=== PATIENT | male | born 1945 ===

== ENCOUNTER 2019-01-09 20:47 | Inpatient (IN) | payer MEDICARE ==
--- NOTE | 2019-01-09 21:16 | ED PDOC ---
Arrival/HPI - General Chief Complaint: Abnormal Labs Time Seen by Provider: 01/09/19 20:48 Historian: Patient - History of Present Illness Narrative History of Present Illness (Text): 01/09/19 21:16 73 year old male, with a history of anemia and blood transfusions, presents to the emergency department with generalized weakness today. Patient states symptoms began today. Patient states he had blood work that showed very low h emoglobin. Patient informs he has needed 2 blood transfusions in the past for his anemia. Patient informs of some weight loss as well. Patient also informs of areas of tenderness to the right leg, above and below the knee. Patient denies any bleeding, hematochezia, fevers, chills, chest pain, shortness of breath, cough, diaphoresis, abdominal pain, nausea, vomiting, diarrhea, back pain, neck pain, or any other complaint. Time/Duration: Prior to Arrival, 24 hours Symptom Onset: Gradual Symptom Course: Unchanged Activities at Onset: Light Context: Home Past Medical History - Provider Review Nursing Documentation Reviewed: Yes - Infectious Disease Hx of Infectious Diseases: None - Cardiac Hx Cardiac Disorders: No - Pulmonary Hx Respiratory Disorders: Yes Hx Chronic Obstructive Pulmonary Disease (COPD): Yes - Neurological Hx Neurological Disorder: No - HEENT Hx HEENT Disorder: No - Renal Hx Renal Disorder: No - Endocrine/Metabolic Hx Endocrine Disorders: No - Hematological/Oncological Hx Blood Disorders: Yes Hx Anemia: Yes Hx Blood Transfusions: Yes - Integumentary Hx Dermatological Disorder: No - Musculoskeletal/Rheumatological Hx Musculoskeletal Disorders: No - Gastrointestinal Hx Gastrointestinal Disorders: No - Genitourinary/Gynecological Hx Genitourinary Disorders: No - Psychiatric Hx Psychophysiologic Disorder: No Hx Substance Use: No - Surgical History Hx Abdominal Aortic Aneurysm Repair: Yes - Anesthesia Hx Anesthesia: Yes Hx Anesthesia Reactions: No Hx Malignant Hyperthermia: No Family/Social History - Physician Review Nursing Documentation Reviewed: Yes Family/Social History: No Known Family HX Smoking Status: Never Smoked Hx Alcohol Use: No Hx Substance Use: No Allergies/Home Meds Allergies/Adverse Reactions: Allergies No Known Allergies Allergy (Verified 01/09/19 20:56) Home Medications: Home Meds Medication Instructions Recorded Confirmed Clonazepam 2 mg PO DAILY 01/09/19 01/09/19 Ferrous Sulfate 325 mg PO DAILY 01/09/19 01/09/19 Fluticasone/Salmeterol 500/50 1 puff INH DAILY 01/09/19 01/09/19 [Advair Diskus 500/50] Mirtazapine 45 mg PO HS 01/09/19 01/09/19 Pantoprazole [Protonix EC Tab] 40 mg PO DAILY 01/09/19 01/09/19 Roflumilast [Daliresp] 500 mcg PO DAILY 01/09/19 01/09/19 Umeclidinium [place] [Incruse 1 puff INH DAILY 01/09/19 01/09/19 Ellipta] Review of Systems - Physician Review All systems were reviewed & negative as marked: Yes - Review of Systems Constitutional: Fatigue, Weight Change. absent: Fevers, Night Sweats Respiratory: absent: SOB, Cough Cardiovascular: absent: Chest Pain Gastrointestinal: absent: Abdominal Pain, Diarrhea, Nausea, Vomiting, He matochezia Musculoskeletal: absent: Back Pain, Neck Pain Endocrine: absent: Diaphoresis Physical Exam - Physical Exam Narrative Physical Exam (Text): 01/09/19 21:23 Gen: VS reviewed, alert, pale, lethargic, mild distress. ENT: normal pharynx, dry mucous membranes. Eye: EOMI, PERRL. Neck: no JVD, supple, no adenopathy. CV: regular rate, regular rhythm, no rubs, no murmur, no gallops, S1, S2, pulses equal and strong. Pulm: no distress, clear to auscultation, no wheeze, no rhonchi, breath sounds equal, no rales. Abd: soft, nontender, no guarding, no rebound, no rigidity, normal bowel sounds. Ext: no edema, moderate tenderness to the right distal lateral thigh. Skin: good color, no rash, no cyanosis. Psych: responds appropriately to questions, normal affect. Neuro: oriented x 3, CN2-12 intact grossly, motor intact, sensation intact. Vital Signs Reviewed: Yes Vital Signs Temp Pulse Resp BP Pulse Ox 01/09/19 20:51 98.2 F 104 H 20 132/75 93 L Temperature: Afebrile Blood Pressure: Normal Pulse: Tachycardic Respiratory Rate: Normal Appearance: Positive for: Non-Toxic, Ill-Appearing Pain Distress: None Mental Status: Positive for: Alert and Oriented X 3, Lethargic Medical Decision Making ED Course and Treatment: 01/09/19 21:37 Impression: 73 year old male presents with generalized weakness. Plan: -- Type and Crossmatch -- EKG -- CMP, Mg -- CBC -- Transfuse Blood -- X-ray right femus -- X-ray right knee -- X-ray right tibia fibula -- US lower extremity -- Reassess and disposition Prior Visits: Notes and results from previous visits were reviewed. 01/09/19 21:48 RECTAL EXAM: THE STOOL FROM THE RECTUM WAS BROWN BUT THE PATIENT WAS NOTED TO HAVE BLACK STOOL AROUND THE RIM OF THE ANUS. HEMOCCULT POSITIVE: 1861 10R 11-19 01/09/19 22:[address] irby. patient to be admitted for symptomatic anemia, stable blood pressure, rbc transfusion, GI protection with protonix in light of positive hemoccult, consult to dr. linder GI. admit to remote tele. - RAD Interpretation Narrative RAD Interpretations (Text): 01/10/19 00:03 US lower extremity preliminary read shows: No DVT X-ray right femur reviewed by me, shows: No fracture, No dislocation X-ray right knee reviewed by me, shows: No fracture, No dislocation, Compartment arthritis. X-ray right tibia fibula reviewed by me, shows: No fracture Stitchdown Toe Former: ED Physician - EKG Interpretation EKG Interpretation (Text): 01/09/19 21:38 Sinus tachycardia @ 104bpm Normal QRS, Normal axis No acute STT wave abnormalities Interpreted by ED Physician: Yes Type: 12 lead EKG - Scribe Statement The provider has reviewed the documentation as recorded by the Pedrito Pride Provider Scribe Attestation: All medical record entries made by the Pedrito were at my direction and personally dictated by me. I have reviewed the chart and agree that the record accurately reflects my personal performance of the history, physical exam, medical decision making, and the department course for this patient. I have also personally directed, reviewed, and agree with the discharge instructions and disposition. Disposition/Present on Arrival - Present on Arrival Any Indicators Present on Arrival: No History of DVT/PE: No History of Uncontrolled Diabetes: No Urinary Catheter: No History of Decub. Ulcer: No History Surgical Site Infection Following: None - Disposition Have Diagnosis and Disposition been Completed?: Yes Diagnosis: Anemia, Thrombocytopenia Disposition: HOSPITALIZED Disposition Time: 22:22 Patient Plan: Admission Patient Problems: Current Active Problems Problem Status Onset Anemia Acute Thrombocytopenia Acute Condition: STABLE
[2019-01-09 21:30] LABS: BASO # 0.01 K/mm3 (0.0-2.0); BASO % 0.1 % (0.0-3.0); EOS # 0.1 (0.0-0.7); EOS % 0.9 % (1.5-5.0); LYMPH # 1.4 (1.2-3.4); LYMPH % 15.3 % (22.0-35.0); MEAN CELL VOLUME 89.1 fl (80.0-105.0); MEAN CORPUSCULAR HEMOGLOBIN 25.9 pg (25.0-35.0); MEAN CORPUSCULAR HGB CONC 29.1 g/dl (31.0-37.0); MONO # 3.6 (0.1-0.6); MONO % 40.8 % (1.0-6.0); RBC 2.47 10^6/uL (3.5-6.1); RED CELL DISTRIBUTION WIDTH 19.4 % (11.5-14.5); WHITE BLOOD COUNT 8.9 10^3/uL (4.5-11.0)
[2019-01-09 21:32] LABS: HEMOGLOBIN 6.4 g/dL (14.0-18.0); PLATELET COUNT 46 10^3/uL (120.0-450.0)
[2019-01-09 21:37] LABS: ALB/GLOB RATIO 0.8 (1.1-1.8); ALBUMIN 3.5 g/dL (3.0-4.8); AST/SGOT 25 U/L (17-59); BLOOD UREA NITROGEN 14 mg/dL (7-21); CALCIUM 8.8 mg/dL (8.4-10.5); GFR NON-AFRICAN AMERICAN 60
[2019-01-09 21:49] LABS: ALT/SGPT < 6 U/L (7-56)
[2019-01-10] MEDS: Potassium Chloride 20 MEQ in Dextrose 5%/0.45% NS 1,000 ML IV SCH ×2 (00:29→13:10)
[2019-01-10 03:30] LABS: ATYPICAL LYMPHOCYTE 3 % (0.0-0.0); BAND 5 % (0-2); EOSINOPHIL 1 % (0.0-3.0); LYMPHOCYTE 18 % (22.0-35.0); METAMYELOCYTE 1 %; MONOCYTE 30 % (1.0-6.0); MYELOCYTE 3 %; NEUTROPHIL 39 % (50.0-70.0); PLATELET ESTIMATE LOW (NORMAL)
[2019-01-10 03:32] LABS: ANISOCYTOSIS 1+; CORRECTED WBC 8.5 K/mm3 (4.5-11.0); HYPOCHROMIA 1+; NUCLEATED RED BLOOD CELL 5 %
[2019-01-10] MEDS: Pantoprazole 40mg/100mL NS 40 MG/100 ML BAG IVPB SCH ×5 (04:25→21:03)
--- NOTE | 2019-01-10 08:32 | US ---
PROCEDURE: Right lower extremity venous US HISTORY: Leg pain and swelling. Evaluate for DVT. PHYSICIAN(S): Raf Anguiano M.D. TECHNIQUE: Duplex sonography and color-flow Doppler with graded compression were used to evaluate the deep venous system of the right lower extremity. FINDINGS: The visualized deep venous system of the right lower extremity is sonographically normal and compressible. Normal waveforms and augmentation are seen. There is no sonographic evidence for deep venous thrombosis in the visualized segments of the right lower extremity. IMPRESSION: 1. No sonographic evidence for deep venous thrombosis in the visualized segments of the right lower extremity.
--- NOTE | 2019-01-10 08:50 | RAD ---
Date of service: 01/09/2019 PROCEDURE: Radiographs of the right tibia and fibula. HISTORY: lateral leg pain COMPARISON: None available TECHNIQUE: Frontal and lateral views obtained. 2 views obtained. FINDINGS: BONES: No fracture or destructive lesion. JOINT SPACES: Unremarkable. OTHER FINDINGS: None. IMPRESSION: Unremarkable radiographs of the right tibia and fibula.
--- NOTE | 2019-01-10 08:51 | RAD ---
Date of service: 01/09/2019 PROCEDURE: Right Knee Radiographs. HISTORY: lateral leg pain COMPARISON: None. TECHNIQUE: 2 views obtained. FINDINGS: BONES: Normal. No fracture. JOINTS: Normal. No osteoarthritis. JOINT EFFUSION: None. OTHER FINDINGS: None. IMPRESSION: Normal radiographs of the right knee.
--- NOTE | 2019-01-10 08:52 | RAD ---
Date of service: 01/09/2019 PROCEDURE: Right Femur Radiographs. HISTORY: lateral leg pain COMPARISON: None. TECHNIQUE: AP and Lateral Radiographs of the right femur. Three views obtained. FINDINGS: FEMUR: Normal. No fracture. SOFT TISSUES: Normal. OTHER FINDINGS: None. IMPRESSION: Unremarkable radiographs of the right femur.
[2019-01-10 10:32] LABS: MEAN CELL VOLUME 88.7 fl (80.0-105.0); MEAN CORPUSCULAR HGB CONC 30.4 g/dl (31.0-37.0); RBC 3.19 10^6/uL (3.5-6.1); RED CELL DISTRIBUTION WIDTH 17.1 % (11.5-14.5); WHITE BLOOD COUNT 8.7 10^3/uL (4.5-11.0)
[2019-01-10 10:33] LABS: HEMOGLOBIN 8.6 g/dL (14.0-18.0)
[2019-01-10 10:35] LABS: PLATELET COUNT 36 10^3/uL (120.0-450.0)
--- NOTE | 2019-01-10 10:40 | CARD ---
APPROVED REPORT Date of service: 01/09/2019 EKG Measurement Heart [id number] <Conclusion> Sinus tachycardia Otherwise normal ECG
[2019-01-10 10:46] LABS: ALB/GLOB RATIO 0.9 (1.1-1.8); ALBUMIN 3.2 g/dL (3.0-4.8); ALT/SGPT 12 U/L (7-56); AST/SGOT 21 U/L (17-59); BLOOD UREA NITROGEN 12 mg/dL (7-21); CALCIUM 8.3 mg/dL (8.4-10.5); GFR NON-AFRICAN AMERICAN > 60
[2019-01-10 11:40] LABS: IRON 41 ug/dL (45-180)
[2019-01-10 11:49] LABS: % IRON SATURATION 17 % (20-55); TOTAL IRON BINDING CAPACITY 248 ug/dL (261-462)
[2019-01-10 12:04] LABS: INR 1.31; PARTIAL THROMBOPLASTIN TIME 35.5 Seconds (26.9-38.3); PROTHROMBIN TIME 14.8 SECONDS (9.4-12.5)
--- NOTE | 2019-01-10 12:43 | CP.PCM.CON ---
<Ye Pinto - Last Filed: 01/10/19 16:00> History of Present Illness - History of Present Illness History of Present Illness: Ye Pinto Heme/Onc Consult Note for Dr. Lassiter 73 year old male with past medical history of anemia and COPD presents with low hemoglobin. Patient states she has been feeling weak and short of breath for several days now and went to see Dr. Jeff in the office. His Hgb was 7.8 and at that visit. He has had similar episodes of weakness and found to have a hemoglobin of 3 in September and was treated in a hospital in [place] with blood transfusions. He denies any sick contacts, recent illness, new medication, easy bruising or bleeding. He also does not recall any blood in the stool or bloody vomiting. He does not recall any blood diseases in his family and denies any history of cancer in the family. He currently denies chest pain, abdominal pain, nausea, vomiting, fever, chills, or any other complaints at this time. PMH:anemia and COPD PSH: hernia repair, aneurysm Allergies: NKDA Social: PMD: Dr. Jeff Meds: Per MAR Review of Systems - Constitutional Constitutional: Fatigue, Weakness. absent: Chills, Fever, Frequent Falls, Headache, Night Sweats, Weight Loss - Cardiovascular Cardiovascular: Dyspnea. absent: Chest Pain, Edema, Pedal Edema, Radiating Pain - Gastrointestinal Gastrointestinal: absent: Abdominal Pain, Change in Stool Character, Coffee Ground Emesis, Constipation, Diarrhea, Hematochezia, Melena, Nausea, Odynophagia, Vomiting - Musculoskeletal Musculoskeletal: absent: Numbness, Tingling - Integumentary Integumentary: absent: Rash, Skin Ulcer, Sores, Wounds - Neurological Neurological: Weakness. absent: Confusion, Disequilibrium, Dizziness, Numbness, Focal Weakness, Headaches, Lack of Coordination, Loss of Vision, Memory Loss, Paresthesias, Tingling, Tremor, Vertigo - Hematologic/Lymphatic Hematologic: As Per HPI. absent: Easy Bleeding, Easy Bruising Past Patient History - Infectious Disease Hx of Infectious Diseases: None - Past Social History Smoking Status: Never Smoked - CARDIAC Hx Cardiac Disorders: No - PULMONARY Hx Respiratory Disorders: Yes Hx Chronic Obstructive Pulmonary Disease (COPD): Yes - NEUROLOGICAL Hx Neurological Disorder: No - HEENT Hx HEENT Problems: No - RENAL Hx Chronic Kidney Disease: No - ENDOCRINE/METABOLIC Hx Endocrine Disorders: No - HEMATOLOGICAL/ONCOLOGICAL Hx Blood Disorders: Yes Hx Anemia: Yes - INTEGUMENTARY Hx Dermatological Problems: No - MUSCULOSKELETAL/RHEUMATOLOGICAL Hx Musculoskeletal Disorders: No Hx Falls: No - GASTROINTESTINAL Hx Gastrointestinal Disorders: No - GENITOURINARY/GYNECOLOGICAL Hx Genitourinary Disorders: No - PSYCHIATRIC Hx Psychophysiologic Disorder: No - SURGICAL HISTORY Hx Surgeries: Yes (Aortic aneursym repair) - ANESTHESIA Hx Anesthesia: Yes Hx Anesthesia Reactions: No Hx Malignant Hyperthermia: No Meds Allergies/Adverse Reactions: Allergies Allergy/AdvReac Type Severity Reaction Status Date / Time No Known Allergies Allergy Verified 01/09/19 20:56 - Medications Medications: Current Medications Pantoprazole Sodium (Protonix 40mg Ivpb) 40 mg in 100 mls @ 20 mls/hr IVPB .Q5H [facility] Last Admin: 01/10/19 09:15 Dose: 20 mls/hr Potassium Chloride 20 meq/ (Dextrose/Sodium Chloride) 1,010 mls @ 75 mls/hr IV .[id number] [facility] Last Admin: 01/10/19 00:29 Dose: 75 mls/hr Physical Exam - Constitutional Appears: No Acute Distress Additional comments: pale, pallor - Head Exam Head Exam: ATRAUMATIC, NORMAL INSPECTION, NORMOCEPHALIC - Eye Exam Eye Exam: Normal appearance - ENT Exam ENT Exam: Mucous Membranes Dry - Respiratory Exam Respiratory Exam: Clear to Auscultation Bilateral, NORMAL BREATHING PATTERN - Cardiovascular Exam Cardiovascular Exam: Tachycardia - GI/Abdominal Exam GI & Abdominal Exam: Normal Bowel Sounds, Soft. absent: Tenderness - Extremities Exam Extremities exam: Positive for: pedal pulses present. Negative for: pedal edema - Neurological Exam Neurological exam: Alert, CN II-XII Intact, Oriented x3, Reflexes Normal Results - Vital Signs Recent Vital Signs: Last Vital Signs Temp 98.6 F 01/10/19 12:00 Pulse 70 01/10/19 12:00 Resp 18 01/10/19 12:00 BP 118/74 01/10/19 12:00 Pulse Ox 96 01/10/19 01:18 - Labs Result Diagrams: 01/10/19 10:00 01/10/19 10:00 Labs: Laboratory Results - last 24 hr 01/09/19 01/09/19 01/09/19 21:17 21:17 21:18 WBC 8.9 RBC 2.47 L Hgb 6.4 L* Hct 22.0 L MCV 89.1 MCH 25.9 MCHC 29.1 L RDW 19.4 H Plt Count 46 L* Neut % (Auto) 42.9 L Lymph % (Auto) 15.3 L Saline % (Auto) 40.8 H Eos % (Auto) 0.9 L Baso % (Auto) 0.1 Lymph # (Auto) 1.4 Saline # (Auto) 3.6 H Eos # (Auto) 0.1 Baso # (Auto) 0.01 Absolute Neuts (auto) 3.82 Corrected WBC (Man) 8.5 Neutrophils % (Manual) 39 L Band Neutrophils % 5 H Lymphocytes % (Manual) 18 L Atypical Lymphs % 3 H Monocytes % (Manual) 30 H Eosinophils % (Manual) 1 Metamyelocytes % 1 Myelocytes % 3 Nucleated RBC % 5 Platelet Evaluation Low Hypochromasia 1+ Anisocytosis (manual) 1+ PT INR APTT Sodium 135 Potassium 4.0 Chloride 95 L Carbon Dioxide 31 Anion Gap 13 BUN 14 Creatinine 1.2 Est GFR ( Amer) > 60 Est GFR (Non-Af Amer) 60 Random Glucose 117 H Calcium 8.8 Magnesium 2.3 H Iron TIBC % Saturation Total Bilirubin 0.5 AST 25 ALT < 6 L Alkaline Phosphatase 73 Total Protein 7.7 Albumin 3.5 Globulin 4.2 Albumin/Globulin Ratio 0.8 L Blood Type A POSITIVE Blood Type Confirm Antibody Screen Negative Crossmatch See Detail BBK History Checked No verified bt 01/09/19 01/10/19 01/10/19 22:20 10:00 10:00 WBC 8.7 RBC 3.19 L Hgb 8.6 L D Hct 28.3 L MCV 88.7 MCH 27.0 MCHC 30.4 L RDW 17.1 H Plt Count 36 L* Neut % (Auto) Lymph % (Auto) Saline % (Auto) Eos % (Auto) Baso % (Auto) Lymph # (Auto) Saline # (Auto) Eos # (Auto) Baso # (Auto) Absolute Neuts (auto) Corrected WBC (Man) Neutrophils % (Manual) Band Neutrophils % Lymphocytes % (Manual) Atypical Lymphs % Monocytes % (Manual) Eosinophils % (Manual) Metamyelocytes % Myelocytes % Nucleated RBC % Platelet Evaluation Hypochromasia Anisocytosis (manual) PT INR APTT Sodium 136 Potassium 4.6 Chloride 103 Carbon Dioxide 24 Anion Gap 13 BUN 12 Creatinine 1.0 Est GFR ( Amer) > 60 Est GFR (Non-Af Amer) > 60 Random Glucose 127 H Calcium 8.3 L Magnesium Iron TIBC % Saturation Total Bilirubin 0.7 AST 21 ALT 12 Alkaline Phosphatase 65 Total Protein 6.9 Albumin 3.2 Globulin 3.7 Albumin/Globulin Ratio 0.9 L Blood Type Blood Type Confirm A POSITIVE Antibody Screen Crossmatch BBK History Checked 01/10/19 01/10/19 11:20 11:40 WBC RBC Hgb Hct MCV MCH MCHC RDW Plt Count Neut % (Auto) Lymph % (Auto) Saline % (Auto) Eos % (Auto) Baso % (Auto) Lymph # (Auto) Saline # (Auto) Eos # (Auto) Baso # (Auto) Absolute Neuts (auto) Corrected WBC (Man) Neutrophils % (Manual) Band Neutrophils % Lymphocytes % (Manual) Atypical Lymphs % Monocytes % (Manual) Eosinophils % (Manual) Metamyelocytes % Myelocytes % Nucleated RBC % Platelet Evaluation Hypochromasia Anisocytosis (manual) PT 14.8 H INR 1.31 APTT 35.5 Sodium Potassium Chloride Carbon Dioxide Anion Gap BUN Creatinine Est GFR ( Amer) Est GFR (Non-Af Amer) Random Glucose Calcium Magnesium Iron 41 L TIBC 248 L % Saturation 17 L Total Bilirubin AST ALT Alkaline Phosphatase Total Protein Albumin Globulin Albumin/Globulin Ratio Blood Type Blood Type Confirm Antibody Screen Crossmatch BBK History Checked Assessment & Plan - Assessment and Plan (Free Text) Plan: 73 year old male with past medical history of anemia and COPD presents with Hgb of 6.4 on admission Anemia -EKG shows tachycardia -s/p 2 units PRBC -repeat Hgb 8.6 -likely secondary to GI loss -stool guiac was positive in ED -Gi consulted, [place] follow recs -flow cytometry pending Thrombocytopenia -will repeat platelet level -continue to monitor <Chandrika Lassiter P - Last Filed: 01/22/19 18:25> Results - Vital Signs Recent Vital Signs: Last Vital Signs Temp 97.8 F 01/13/19 18:02 Pulse 100 H 01/13/19 18:02 Resp 16 01/13/19 18:02 BP 119/77 01/13/19 18:02 Pulse Ox 99 01/13/19 18:02 - Labs Result Diagrams: 01/13/19 07:00 01/13/19 07:00 Attending/Attestation - Attestation I have personally seen and examined this patient.: Yes I have fully participated in the care of the patient.: Yes I have reviewed all pertinent clinical information: Yes
[2019-01-10] MEDS ORDERED: Barium Sulfate Susp 2.1% w/v, 2.0% w/w 450 mL Bottle PO ONE (12:49)
[2019-01-10] MEDS ORDERED: Iohexol 350 MG/100 ML VIAL ONE (13:52)
[2019-01-10] MEDS: guaiFENesin DM 100 mg-10 mg/5 ml UD PO PRN (13:57)
--- NOTE | 2019-01-10 18:55 | CT ---
Date of service: 01/10/2019 PROCEDURE: CT Abdomen and Pelvis with contrast HISTORY: anemia COMPARISON: None. TECHNIQUE: Intravenous contrast dose: 96 cc Omnipaque 350. Radiation dose: Total exam DLP = 207.40 mGy-cm. This CT exam was performed using one or more of the following dose reduction techniques: Automated exposure control, adjustment of the mA and/or kV according to patient size, and/or use of iterative reconstruction technique. FINDINGS: LOWER THORAX: Unremarkable. LIVER: Unremarkable. No gross lesion or ductal dilatation. GALLBLADDER AND BILE DUCTS: Unremarkable. PANCREAS: Unremarkable. No gross lesion or ductal dilatation. SPLEEN: Unremarkable. ADRENALS: Unremarkable. No mass. KIDNEYS AND URETERS: Unremarkable. No hydronephrosis. No solid mass. VASCULATURE: Markedly tortuous and aneurysmal [place] aorta. Aorto bi-iliac stent graft identified. Contrast is identified in 8 channel outside the confines of the stent graft but likely residual contrast through the abdominal aorta. Additional right iliac stent is noted but likely thrombosed, contrast cannot be seen coursing through this structure. Atherosclerotic calcifications/mural plaque present in the [place] aorta. BOWEL: Unremarkable. No obstruction. No gross mural thickening. APPENDIX: Normal appendix. PERITONEUM: Unremarkable. No free fluid. No free air. LYMPH NODES: Unremarkable. No enlarged lymph nodes. BLADDER: Unremarkable. REPRODUCTIVE: Enlarged prostate. Orthogonal measurements on axial series 3/image 128 6.4 x 7.3 cm. BONES: No acute fracture. OTHER FINDINGS: None. IMPRESSION: No significant or acute findings to account for/ related to the clinical presentation of anemia. Markedly tortuous and aneurysmal [place] abdominal aorta. Aorto bi-iliac stent graft identified. Additional findings described in greater detail above. Additional benign and/or incidental findings described above.
--- NOTE | 2019-01-10 19:26 | HP ---
DATE OF EXAM: 01/10/2019 HISTORY OF PRESENT ILLNESS: A 73-year-old white male with a recent history of elevated PSA, approximately 9-11. The patient also has a recent history of anemia, status post blood transfusions; history of some type of bleed from his aorta, which was several weeks to months ago. The patient was seen by my nurse practitioner, found to be severely weak and anemic and apparently in the office, the patient was guaiac negative. The patient was sent to the emergency room, was found to have a hemoglobin of 6.4 with guaiac positive, was also found to be thrombocytopenic with low platelet count of 46,000, normal white count. The patient was transfused and admitted to hospital for workup and treatment of severe anemia, severe thrombocytopenia. REVIEW OF SYSTEMS: CONSTITUTION: Positive only for weakness and fatigue and shortness of breath. CARDIAC: Negative for chest pain, palpitations, lightheadedness, and dizziness. RESPIRATORY: Negative for cough, sputum production, and hemoptysis. GASTROINTESTINAL: Positive only for vague abdominal pain. GENITOURINARY: Negative for dysuria, hematuria, proteinuria, or frequency. MUSCULOSKELETAL: Positive for pain in the thigh and knee and lower legs bilaterally. The patient was admitted with hemoglobin of 6.4 and platelet count of 46,000. PHYSICAL EXAMINATION: GENERAL: Shows a well-developed and thin white male, fatigued, pale without scleral icterus. CHEST: Clear to auscultation and percussion. HEART: Regular sinus rhythm. ABDOMEN: Nondistended. Bowel sounds are hypoactive. No hepatosplenomegaly. No organomegaly. EXTREMITIES: Without clubbing, cyanosis, or edema. NEUROLOGICAL: Grossly intact. IMPRESSION: A 73-year-old white male presenting with severe anemia, severe thrombocytopenia, elevated PSA, and bilateral leg pain. Martinez Jeff MD
--- NOTE | 2019-01-10 23:40 | CON ---
DATE OF CONSULTATION: 01/10/2019 GASTROENTEROLOGY CONSULTATION REQUESTING PHYSICIAN: Dr. Martinez Jeff. REASON FOR CONSULTATION: I have been asked to see this 73-year-old male with a history of recurrent anemia requiring blood transfusions, upper GI bleed, who comes to the hospital with weakness and was told that his blood count was very low by his medical doctor. The patient also complains of right leg pain. He denies any falls, chest pain, shortness of breath or loss of consciousness. The patient was admitted to [facility] in 08/2018 for an upper GI hemorrhage. He required multiple units of packed red blood cells and was found to have a bleeding Dieulafoy's lesion in the duodenum. This was hemoclipped. He had a negative colonoscopy at that time. He currently denies any melena, rectal bleeding, use of nonsteroidals. PAST MEDICAL HISTORY: Notable for COPD, chronic recurrent anemia. 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 PAST SURGICAL HISTORY: Notable for abdominal aortic aneurysm repair. SOCIAL HISTORY: He denies cigarette smoking or alcohol use. FAMILY HISTORY: Noncontributory. REVIEW OF SYSTEMS: Fourteen-point review of systems is notable for generalized weakness and leg pain. MEDICATIONS AT HOME: Include clonazepam, ferrous sulfate, Advair Diskus, mirtazapine, Protonix, Daliresp, and Incruse Ellipta. PHYSICAL EXAMINATION: GENERAL: Elderly male, lying in bed, appearing weak. VITAL SIGNS: Reveal a temperature of 98.6, blood pressure 118/74, heart rate 70. HEENT: Reveals sclerae to be white. Conjunctivae pale. NECK: Supple. CHEST: Revealed lungs to be clear. HEART: Reveals regular rate and rhythm. ABDOMEN: Soft, nontender. EXTREMITIES: Show no edema. LABORATORY DATA: Revealed on admission to the hospital, hemoglobin 6.4, platelet count of 46,000. The patient received 2 units of packed red blood cells, and this morning his hemoglobin is up to 8.6. His platelet count remains low at 36,000. Chemistries reveal normal electrolytes, iron saturation is 17%. IMPRESSION: A 73-year-old male with recurrent anemia requiring blood transfusions, also noted to be thrombocytopenic. Etiology of the anemia and thrombocytopenia is unclear. He does give a history of having a upper gastrointestinal bleed from the duodenal Dieulafoy, treated at [facility] in 08/2018. RECOMMENDATIONS: 1. I requested CT scan of the abdomen and pelvis with IV contrast. I suspect that the patient's anemia is possibly from chronic GI blood loss. He does not give any indication of active GI bleeding. 2. Continue IV PPI. 3. Agree with Hematology evaluation. 4. I will schedule the patient for an upper endoscopy, probably for . Deven Renner MD MTDD
[2019-01-11] MEDS: Potassium Chloride 20 MEQ in Dextrose 5%/0.45% NS 1,000 ML IV SCH ×2 (01:47→17:16)
[2019-01-11] MEDS: Pantoprazole 40mg/100mL NS 40 MG/100 ML BAG IVPB SCH ×6 (01:50→20:30)
[2019-01-11] MEDS ORDERED: Budesonide 0.5 mg/2 ml Inhal Susp UD IH SCH (08:00)
[2019-01-11] MEDS ORDERED: Arformoterol 15 mcg/2 ml Inh Sol IH SCH (08:00)
[2019-01-11] MEDS ORDERED: guaiFENesin DM 100 mg-10 mg/5 ml UD PO PRN (08:38)
[2019-01-11] MEDS ORDERED: Budesonide 0.5 mg/2 ml Inhal Susp UD IH ONE (08:45)
[2019-01-11] MEDS ORDERED: Arformoterol 15 mcg/2 ml Inh Sol IH ONE (08:45)
[2019-01-11] MEDS: INCRUSE 62.5 MCG IH SCH (09:29)
[2019-01-11] MEDS: ADVAIR INH SCH (09:29)
[2019-01-11] MEDS: guaiFENesin DM 100 mg-10 mg/5 ml UD PO PRN (09:33)
--- NOTE | 2019-01-11 09:48 | PN ---
DATE: 01/11/2019 SUBJECTIVE: A 73-year-old white male admitted to the hospital with GI bleed, status post transfusion currently with no further current GI bleeding. Hemoglobin is stable at 8.6. The patient does have a dropping platelet count initially admission was 46,000 now 36,000. The patient is waiting for antiplatelet antibodies and a hematology consult with Dr. Lassiter. The patient also has history of COPD, we will review his medications. He complaining of some cough and also complaining of some left lower leg pain. There is no evidence of DVT and there is no swelling, erythema, or cellulitis in the leg. The patient will get Rey bandages as requested. We will restart some p.o. medications for his COPD, and the patient is scheduled for an upper endoscopy tomorrow with Dr. Renner. We will follow up on the patient's . PHYSICAL EXAMINATION: Unchanged. ABDOMEN: Soft. Bowel sounds normoactive. CHEST: Decreased breath sounds bilaterally. HEART: Regular sinus rhythm. EXTREMITIES: Without cyanosis, clubbing, or edema. Martinez Jeff MD
[2019-01-11] MEDS ORDERED: Fluticasone-Salmeterol 500-50mcg Diskus INH SCH (10:00)
[2019-01-11] MEDS ORDERED: Home Med 1 UNIT INH SCH (10:00)
[2019-01-11] MEDS ORDERED: Non Formulary Medication (Umeclidinium Bromide [Incruse Ellipta] 1 PUFF) INH SCH ×2 (10:00)
[2019-01-11 13:30] LABS: HEMOGLOBIN 9.3 g/dL (14.0-18.0); MEAN CELL VOLUME 88.6 fl (80.0-105.0); MEAN CORPUSCULAR HEMOGLOBIN 27.3 pg (25.0-35.0); MEAN CORPUSCULAR HGB CONC 30.8 g/dl (31.0-37.0); RBC 3.41 10^6/uL (3.5-6.1); RED CELL DISTRIBUTION WIDTH 17.3 % (11.5-14.5); WHITE BLOOD COUNT 11.3 10^3/uL (4.5-11.0)
[2019-01-11 13:32] LABS: PLATELET COUNT 35 10^3/uL (120.0-450.0)
[2019-01-11] MEDS: Sucralfate 1 gm/10 ml Oral Susp UD PO SCH (17:16)
[2019-01-11] MEDS: Budesonide 0.5 mg/2 ml Inhal Susp UD IH SCH (21:00)
[2019-01-11] MEDS: Arformoterol 15 mcg/2 ml Inh Sol IH SCH (21:00)
[2019-01-11] MEDS ORDERED: MIRTAZAPINE 45 MG PO SCH (22:00)
--- NOTE | 2019-01-12 00:36 | PN ---
DATE: 01/11/2019 This is Bahman Dumont's followup visit progress note on the telemetry floor. For Dr. Lassiter. SUBJECTIVE: The patient is a 73-year-old male sitting up in bed, transfused with two units of packed red blood cells earlier in his hospital stay for a hemoglobin of 6.4, yesterday's value was 8.6, today's 9.3. However, his platelet count has dropped from 46,000 initially to 35,000 this morning with a manual count 39,000. His white blood cell count remains within range at 11.3. With this, the patient is feeling weak as his only complaint except for a leg discomfort which he has a strap on the right lower extremity with Doppler ultrasounds were done which were reported as negative. It should be noted that the patient will be having gastrointestinal evaluation by Dr. Renner tomorrow. In anticipation, he is n.p.o.; however, we will give ice chips with his medications as indicated. Also, the patient is reporting that his memory is not so good; however, he does report of having surgery in [facility] in [place] for aneurysm with a repeat procedure also in [place] eventually at the satellite station for [facility] in [place] for a probable abdominal aortic aneurysm with CT scan done yesterday showing a markedly torturous and aneurysmal jamul abdominal aorta. Aortobiiliac stent graft identified. With this, the patient is thought to have had a gastrointestinal bleed because he reports also stomach issues in the past. However, at present, his platelet count is being worked up with no active bleeding at present. He also admits to multiple transfusions in the past. PHYSICAL EXAMINATION: VITAL SIGNS: Temperature 97.9, pulse 95, respirations 18, blood pressure 167/102 with a pulse ox of 96%. However, we will add oxygen 2 liters nasal cannula humidified to his regimen. Upon reviewing the patient's medications, it appears that he is taking multiple COPD/asthma medicines including Brovana, Daliresp, Pulmicort, Incruse Ellipta along with home medications which include Advair. With this, a request was made for consult with Dr. Pang, Pulmonology, in this aspect of his care. LABORATORY DATA: The patient's labs were done. White blood cell count of 11.3, hemoglobin 9.3, hematocrit 30.2, platelet count 35,000, status post transfusion of two units of packed cells for hemoglobin 6.4 two days prior. INR 1.3 with a metabolic panel showing a calcium of 8.3, iron saturation 17%, otherwise normal metabolic panel. The patient did have an ultrasound of his abdomen earlier today, the report is not back yet. ASSESSMENT: For this patient is that of, 1. Symptomatic anemia. 2. Severe thrombocytopenia without active bleed at present. 3. Chronic obstructive pulmonary disease/asthma. 4. History of abdominal aortic aneurysm repair with multiple transfusion history, fatigue. PLAN: The plan for this patient after conversation with Dr. Lassiter is to check flow cytometric analysis along with review with EGD as per Dr. Renner tomorrow with further testing as indicated. We will ask for consult with Dr. Pang regarding adjustment of his pulmonary medications with further recommendations as indicated with ultrasound of his spleen to be noted. This is a complex patient with comprehensive medically necessary and appropriate visit carried out in excess of 50 minutes with the patient's questions answered to his satisfaction. Labs will be checked in the morning. Anthony Soni MD
[2019-01-12] MEDS: Pantoprazole 40mg/100mL NS 40 MG/100 ML BAG IVPB SCH ×2 (01:10→06:00)
--- NOTE | 2019-01-12 01:15 | PN ---
DATE: 01/11/2019 SUBJECTIVE: The patient is lying in bed, comfortable. He had a bowel movement earlier this morning which was nonbloody and non-melanotic. He could not tolerate clear liquids as he began vomiting after taking clear liquids. The vomitus was nonbloody. His hemoglobin this morning is 9.3, platelet count is 35,000. OBJECTIVE: VITAL SIGNS: Reveal temperature of 97.9, blood pressure 167/102, heart rate of 95. HEENT: Reveal sclerae to be white. Conjunctivae pale. NECK: Supple. CHEST: Lungs are clear. HEART: Reveals a regular rate and rhythm. ABDOMEN: Soft, nontender. EXTREMITIES: Show no edema. Hemoglobin is as above at 9.3 which is stable, platelet count of 35,000. Chemistries reveal iron saturation of 17%. Ferritin is 93.9. Electrolytes are normal. CT scan of the abdomen and pelvis revealed no masses throughout the GI tract. He has [id number] stent graft in his lower abdominal aortic aneurysm. The liver and spleen appear normal. IMPRESSION: A 73-year-old male with recurrent anemia, now with thrombocytopenia, etiology unclear. Must rule out chronic upper gastrointestinal blood loss. 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 He had a negative colonoscopy at that time. RECOMMENDATIONS: 1. Follow serial hematocrits. 2. Await hematology evaluation for anemia and thrombocytopenia. 3. The patient is scheduled for an upper endoscopy in the morning. Deven Renner MD ANUSHA
[2019-01-12 05:31] LABS: URINE BILIRUBIN NEGATIVE (NEGATIVE); URINE BLOOD LARGE (NEGATIVE); URINE GLUCOSE (UA) NEGATIVE (NEGATIVE); URINE LEUKOCYTE ESTERASE NEGATIVE Leu/uL (NEGATIVE); URINE PROTEIN 100 mg/dL (<30 mg/dL); URINE UROBILINOGEN 0.2 E.U./dL (<1 E.U./dL)
[2019-01-12 05:36] LABS: URINE APPEARANCE SL CLOUDY (CLEAR); URINE COLOR YELLOW (YELLOW)
[2019-01-12 05:46] LABS: URINE EPITHELIAL CELLS 0 - 2 /hpf (0-5); URINE RBC 15 - 20 /hpf (0-2); URINE WBC 0 - 2 /hpf (0-6)
[2019-01-12] MEDS: Sucralfate 1 gm/10 ml Oral Susp UD PO SCH ×2 (06:00→17:58)
[2019-01-12] MEDS: Potassium Chloride 20 MEQ in Dextrose 5%/0.45% NS 1,000 ML IV SCH ×2 (06:19→19:01)
[2019-01-12 06:29] LABS: INR 1.44; PROTHROMBIN TIME 16.3 SECONDS (9.4-12.5)
[2019-01-12 06:34] LABS: IRON 14 ug/dL (45-180)
[2019-01-12 06:44] LABS: % IRON SATURATION 6 % (20-55); TOTAL IRON BINDING CAPACITY 241 ug/dL (261-462)
[2019-01-12] MEDS: Budesonide 0.5 mg/2 ml Inhal Susp UD IH SCH ×2 (08:23→19:43)
[2019-01-12] MEDS: Arformoterol 15 mcg/2 ml Inh Sol IH SCH ×2 (08:23→19:43)
[2019-01-12] MEDS ORDERED: Propofol 10 mg/ml Inj (20 ML) ONE (08:30)
[2019-01-12] MEDS ORDERED: Etomidate 20 mg/10ml Inj IV ONE (08:30)
[2019-01-12 08:38] VITALS: O2SAT 99
[2019-01-12] MEDS ORDERED: Sodium Chloride 0.9% 1,000 ML IV SCH (08:45)
[2019-01-12 09:02] LABS: HEMOGLOBIN 9.2 g/dL (14.0-18.0); MEAN CELL VOLUME 88.4 fl (80.0-105.0); MEAN CORPUSCULAR HEMOGLOBIN 27.3 pg (25.0-35.0); MEAN CORPUSCULAR HGB CONC 30.9 g/dl (31.0-37.0); RBC 3.37 10^6/uL (3.5-6.1); RED CELL DISTRIBUTION WIDTH 17.4 % (11.5-14.5); WHITE BLOOD COUNT 15.4 10^3/uL (4.5-11.0)
[2019-01-12 09:10] LABS: PLATELET COUNT 35 10^3/uL (120.0-450.0)
[2019-01-12] MEDS: ADVAIR INH SCH (10:11)
[2019-01-12] MEDS: INCRUSE 62.5 MCG IH SCH (10:11)
[2019-01-12] MEDS: Pantoprazole 40 mg EC Tab PO SCH (10:36)
--- NOTE | 2019-01-12 11:29 | US ---
Date of service: 01/11/2019 HISTORY: thrombocytopenia COMPARISON: Abdomen pelvis CT with contrast 01/10/2019. TECHNIQUE: Sonographic evaluation of the abdomen. FINDINGS: LIVER: Measures 16.0 cm. Normal echogenicity of the liver parenchyma. Xxxxx no intrahepatic bile duct dilatation. GALLBLADDER: Mkwm-rz-mwyhdvzu distention with sludge layering the dependent portion. No defined cholelithiasis or pericholecystic fluid collection/mural thickening. No reported sonographic Dodson sign. COMMON BILE DUCT: Measures 6.7 mm. No choledocholithiasis. No dilatation. PANCREAS: Unremarkable as visualized. No mass. No ductal dilatation. RIGHT KIDNEY: Measures 11.0 cm in length. Good corticomedullary differentiation. No urolithiasis or hydronephrosis. Multiple right renal cysts are identified: At the upper pole measuring 1.5 x 1.0 x 1.0 cm simple cysts; more posteriorly at the upper pole 1.2 x 10.8 x 0.9 cm, simple. At the midpole 0.9 x 0.8 x 0.6 cm also simple. At the lower pole 1.4 x 1.0 x 1.6 cm, simple. No definite solid parenchymal mass identified. No significant change from prior CT abdomen pelvis with contrast 01/10/2019. LEFT KIDNEY: Measures 12.0cm. Good corticomedullary differentiation. No calculus or hydronephrosis. Multiple left renal cysts are identified. The dominant cyst identified at the upper pole measure 2.6 x 1.8 x 2.0 cm with questionable nodule at its inferior margins and otherwise appearing unremarkable. Five additional smaller simple cysts are identified. No significant change from prior abdomen and pelvis CT with contrast 01/10/2019. SPLEEN: Normal in size and contour. No mass. AORTA: Much of the mid distal abdominal aorta are obscured by overlying bowel gas with known ectatic large abdominal aortic aneurysm treated by stent graft not clearly defined. See separate CT noted above. IVC: Largely obscured by bowel gas. OTHER FINDINGS: None. IMPRESSION: 1. A 0.9 cm cyst seen in the right lobe liver anteriorly as well as probable benign hemangioma 0.9 cm greatest dimension, seen slightly more inferiorly, also in the anterior right lobe. The cyst unchanged compared prior and pelvis CT 01/10/2019. The presumed benign hemangioma is not clearly identified in the same exam. This may be due to small size. 2. Bilateral simple cysts reiterated. No obstructive uropathy bilaterally. 3. Partial imaging of the pancreas with the visualized components unremarkable. 4. Poor definition of aneurysmal aorta treated by aortic iliac stent graft due to overlying bowel. See separate abdomen pelvis CT 01/10/2019. Preliminary report provided by Karine, 01/11/2019, 8:23 p.m..
--- NOTE | 2019-01-12 13:29 | PN ---
DATE: 01/12/2019 SUBJECTIVE: A 73-year-old white male admitted to the hospital with severe iron deficiency anemia, guaiac-positive stools, thrombocytopenia, history of aortic aneurysm repair and iliac repair, history of severe COPD. The patient currently was transfused up to 9.2, but still has a platelet count of 35,000. After conversation with Dr. Lassiter, the patient is having upper endoscopy today to rule out GI bleed. PHYSICAL EXAMINATION: VITAL SIGNS: His blood pressure 149/59, temperature 99.1. LABORATORY DATA: His current hemoglobin is 9.2 and platelet count is 35,000. The patient is unchanged. IMPRESSION AND PLAN: The patient will be followed post endoscopy and if stable will be discharged home in the next 24 to 48 hours. Martinez Jeff MD
--- NOTE | 2019-01-12 15:22 | CP.PCM.PN ---
<Ye Pinto - Last Filed: 01/12/19 16:57> Subjective - Date & Time of Evaluation Date of Evaluation: 01/12/19 Time of Evaluation: 06:00 - Subjective Subjective: Ye Pinto PGY2 Heme/Onc Progress Note Patient seen and evaluated bedside. No acute issues overnight. Patient says he feel better today, denies any additional complaints at this time. Objective - Vital Signs/Intake and Output Vital Signs (last 24 hours): Temp Pulse Resp BP Pulse Ox 99.1 F 95 H 16 149/59 L 99 01/12/19 09:13 01/12/19 09:13 01/12/19 09:13 01/12/19 09:13 01/12/19 09:13 Intake and Output: 01/12/19 01/12/19 06:59 18:59 Intake Total 0 Output Total 700 Balance -700 - Medications Medications: Current Medications Acetaminophen (Tylenol 325mg Tab) 650 mg PO Q6H PRN PRN Reason: Headache Last Admin: 01/12/19 12:30 Dose: 650 mg Arformoterol Tartrate (Brovana) 15 mcg IH [id number] [facility] Last Admin: 01/12/19 08:23 Dose: Not Given Budesonide (Pulmicort Respules) 1 mg IH [id number] [facility] Last Admin: 01/12/19 08:23 Dose: Not Given Clonazepam (Klonopin) 2 mg PO HS [facility]; Protocol Last Admin: 01/11/19 21:22 Dose: 2 mg Ferrous Sulfate (Feosol) 324 mg PO DAILY [facility] Last Admin: 01/12/19 10:09 Dose: 324 mg Guaifenesin/Dextromethorphan (Robitussin Dm) 5 ml PO Q4H PRN PRN Reason: Cough Home Med (Home Med) 1 unit IH DAILY [facility] Last Admin: 01/12/19 10:11 Dose: 1 unit Home Med (Home Med) 1 unit INH DAILY [facility] Last Admin: 01/12/19 10:11 Dose: 1 unit Potassium Chloride 20 meq/ (Dextrose/Sodium Chloride) 1,010 mls @ 75 mls/hr IV .[id number] [facility] Last Admin: 01/12/19 06:19 Dose: 75 mls/hr Ipratropium Blossom (Atrovent) 0.5 mg IH TIDRESP [facility] Metoclopramide HCl (Reglan) 5 mg IVP ACHS [facility] Last Admin: 01/12/19 12:39 Dose: 5 mg Mirtazapine (Remeron) 45 mg PO HS [facility] Last Admin: 01/11/19 21:21 Dose: 45 mg Mirtazapine (Remeron) 45 mg PO HS [facility] Last Admin: 01/11/19 22:00 Dose: Not Given Ondansetron HCl (Zofran Inj) 4 mg IVP Q6H PRN PRN Reason: Nausea/Vomiting Last Admin: 01/11/19 13:40 Dose: 4 mg Pantoprazole Sodium (Protonix Ec Tab) 40 mg PO 0600 [facility] Roflumilast (Daliresp) 500 mcg PO DAILY [facility] Last Admin: 01/12/19 10:08 Dose: 500 mcg Sucralfate (Carafate Oral Susp) 1 gm PO 0600,1600 [facility] Last Admin: 01/12/19 06:00 Dose: 1 gm - Labs Labs: 01/12/19 08:00 01/10/19 10:00 PT 16.3 SECONDS (9.4-12.5) H 01/12/19 05:30 INR 1.44 01/12/19 05:30 APTT 35.5 Seconds (26.9-38.3) 01/10/19 11:40 - Constitutional Appears: No Acute Distress - Eye Exam Eye Exam: EOMI, Normal appearance - ENT Exam ENT Exam: Mucous Membranes Moist - Respiratory Exam Respiratory Exam: Clear to Ausculation Bilateral, NORMAL BREATHING PATTERN Assessment and Plan - Assessment and Plan (Free Text) Plan: Anemia -s/p 2 units PRBC -Hgb 9.2 -Upper endoscopy demonstrates nonbleeeding angiodysplastic lesions -GI consulted, Renner follow recs -flow cytometry pending Thrombocytopenia -platelets 35 -will obtain bone marrow biopsy -continue to monitor Patient seen and discussed with Dr. Lassiter <Chandrika Lassiter P - Last Filed: 01/22/19 18:21> Objective - Vital Signs/Intake and Output Vital Signs (last 24 hours): Temp Pulse Resp BP Pulse Ox 97.8 F 100 H 16 119/77 99 01/13/19 18:02 01/13/19 18:02 01/13/19 18:02 01/13/19 18:02 01/13/19 18:02 - Labs Labs: 01/13/19 07:00 01/13/19 07:00 PT 16.3 SECONDS (9.4-12.5) H 01/12/19 05:30 INR 1.44 01/12/19 05:30 APTT 35.5 Seconds (26.9-38.3) 01/10/19 11:40 Attending/Attestation - Attestation I have personally seen and examined this patient.: Yes I have fully participated in the care of the patient.: Yes I have reviewed all pertinent clinical information, including history, physical exam and plan: Yes
--- NOTE | 2019-01-12 15:27 | CON ---
DATE: 01/12/2019 PULMONARY CONSULT NOTE REFERRING PHYSICIAN: Martinez Jeff MD REASON FOR CONSULT: Cough and COPD. HISTORY OF PRESENT ILLNESS: This is a 73-year-old male with past medical history significant for GI bleed, anemia, status post blood transfusion, and elevated PSA. The patient was seen by Dr. Jeff's nurse practitioner where he was found to be weak, anemic in the office. Guaiac was negative. The patient came to the emergency room. His hemoglobin was 6.4 with positive guaiac stool. The patient also had thrombocytopenia. The patient today is status post transfusion. He reports that he feels better today. EGD was done today. Reports having cough with minimal sputum production. PAST MEDICAL HISTORY: As per history of present illness. FAMILY HISTORY: No significant cardiopulmonary disease reported. SOCIAL HISTORY: Former smoker, quit 7 years ago. No EtOH abuse. No illicit drug use. ALLERGIES: NO KNOWN ALLERGIES. MEDICATIONS: Reviewed. Tylenol 650 mg every 6 hours p.r.n. headache, Brovana 15 mcg every 12 hours, Pulmicort 1 mg every 12 hours, Klonopin 2 mg at bedtime, ferrous sulfate 324 mg daily, Robitussin DM 5 mL every 4 hours p.r.n., Reglan 5 mg IV push a.c. and at bedtime, Remeron 45 mg at bedtime, Incruse inhaler daily, Zofran 4 mg IV push every 6 hours p.r.n., Protonix 40 mg daily, potassium chloride 20 mEq , daliresp 500 mcg daily, and Carafate 1 g twice a day. REVIEW OF SYSTEMS: No headache, rhinitis, shortness of breath, chest pain, abdominal pain, nausea, vomiting, diarrhea, leg pain or leg swelling reported. The patient does report having cough with occasional sputum production, states that he does not believe that he snores. PHYSICAL EXAMINATION GENERAL: No acute distress. VITAL SIGNS: Blood pressure 149/59, pulse 95, temperature 99.1, and oxygen saturation 99% on nasal cannula. HEENT: Moist mucous membranes. Crowded airway. Mallampati score of 4. NECK: Supple. No JVD. RESPIRATORY: Few scattered rhonchi. CARDIOVASCULAR: S1 and S2. ABDOMEN: Soft and nontender. No distension. No organomegaly. EXTREMITIES: No bilateral lower extremity edema. NEUROLOGIC: Awake, alert, verbal, following commands. LABORATORY DATA: Reviewed. WBC 15.4, RBC 3.37, hemoglobin 9.2, hematocrit 29.8, and platelets 35. PT 16.3, INR 1.44, APTT 35.5. Iron 14, TIBC 241, percent saturation 6, ferritin 93.9, TSH 0.19. Urinalysis shows urine protein 100, urine blood large, urine RBC 15 to 20. 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 Abdominal ultrasound shows 0.9 cm cyst in the right lobe of the liver anteriorly as well as palpable benign hemangioma 0.9 cm, slightly more inferiorly also in the anterior right lobe, bilateral simple cyst reiterated. Abdomen and pelvis CT shows no significant or acute findings, markedly torturous and aneurysmal [place] abdominal aorta, wcxvh-[id number]-cxves-iliac stent graft identified. Tibia/fibula x-ray, unremarkable. Knee x-ray normal. Extremity ultrasound, no evidence of deep venous thrombosis. Right lower extremity femur x-ray, unremarkable. EKG, sinus tachycardia. IMPRESSION AND PLAN: Severe anemia, thrombocytopenia, status post transfusion, history of gastrointestinal bleed, and chronic obstructive pulmonary disease. Agree with current treatment plan. We will order SCDs to bilateral lower extremities with the patient cannot be on chemical prophylaxis due to thrombocytopenia and anemia. History of gastrointestinal bleed. We will order B12 and folate level to be done in the morning. We will discontinue Incruse inhaler and start the patient on Atrovent. Continue inhaled bronchodilators, gastric prophylaxis, fall precautions. Continue Hematology/Oncology followup. Recommend the patient have pulmonary function test as outpatient. This patient was seen and examined with Dr. Pang. Discussed assessment and plan as described above. This patient was seen and examined with Toribio Read, nurse practitioner. Discussed assessment and plan as described above. Thanks for this consult. We will follow with you. Toribio Read APN Ricardo Pang MD [facility] # [id number] [facility]
[2019-01-12] MEDS: Ipratropium 0.02% Inhal Soln (0.5 mg/2.5 ml) UD IH SCH ×2 (16:15→19:43)
--- NOTE | 2019-01-13 00:05 | PN ---
DATE: 01/12/2019 This is [facility] visit on the telemetry floor. For Dr. Lassiter. SUBJECTIVE: The patient is a 73-year-old male status post transfusion of 2 units of packed red blood cells on admission for a hemoglobin of 6.4. The hemoglobin has now since improved to 9.2. However, his platelet count has dropped from original platelet count of 46,000 on admission 3 days prior. It is now 35,000. With this, the patient's white blood cell count has also risen to 15,000 from 8000 on admission. He is status post transfusion of 2 units of packed red blood cells as reported above. The patient did have an EGD done earlier today with the post-procedure diagnosis that of multiple nonbleeding arteriovenous malformations on his EGD with the final report. However, this does not explain his severe thrombocytopenia for which a bone marrow biopsy was strongly recommended, hopefully prior to discharge home. We will try to make arrangements for this tomorrow with Dr. Raf Anguiano as per Dr. Lassiter. Otherwise, the patient reports he still has leg discomfort. However, x-rays were done of bony components including his knee, tibia, fibula, and femur all reported as negative with extremity also showing negative for DVT with considerations for possibly arterial sclerotic disease contributing to his discomfort of his legs, also status post trauma with contusion as previously described. PHYSICAL EXAMINATION: VITAL SIGNS: Temperature 99, pulse 106, respirations 19, blood pressure 136/85, pulse ox 99%. HEENT: Unremarkable. NECK: Supple. HEART: Regular rate. LUNGS: Clear. ABDOMEN: Soft and nontender. EXTREMITIES: No edema. SKIN: Warm and dry. NEUROLOGIC: Awake and alert. LABORATORY DATA: The patient's labs were drawn to include a white blood cell count of 15,400, hemoglobin is 9.2, status post transfusion of 2 units of packed cells for hemoglobin of 6.4 on admission, hematocrit of 29.8, platelet count of 35,000. His metabolic panel was within normal range except for calcium, which was within normal range 2 days prior. His iron percent saturation was 6% with a TSH of 0.19 with an INR of 1.44 with the urine showing a large amount of blood. Other tests are pending for thrombocytopenia workup including his platelet antibody direct and indirect along with reticulocyte count, haptoglobin, which is ordered along with B12 and folate values. The EGD as described above was significant for multiple nonbleeding AVMs as per Dr. Renner earlier today. ASSESSMENT: For this patient is that of severe thrombocytopenia, symptomatic anemia status post transfusion, gastrointestinal arteriovenous malformations, chronic obstructive pulmonary disease/asthma, history of abdominal aortic aneurysm repair with multiple transfusion history, fatigue. PLAN: The plan for this patient after conversation with Dr. Lassiter is to continue present medical regimen, to strongly recommend the patient remain hospitalized for a bone marrow biopsy to determine etiology if possible for his severe thrombocytopenia. The patient is anemic, indices slightly improving with gastrointestinal medications including Protonix and Carafate with pulmonary treatment as per Dr. Pang. This is a complex patient with a comprehensive medically necessary and appropriate visit carried out in excess of 40 minutes with the patient's questions answered to his satisfaction with recommendations for a bone marrow biopsy possibly prior to discharge or early next week with the patient to follow up in Dr. Lassiter's office with consideration for this to be done. We also recommend a liver and spleen scan prior to discharge home. Anthony Soni MD
[2019-01-13] MEDS: Pantoprazole 40 mg EC Tab PO SCH (06:49)
[2019-01-13] MEDS: Sucralfate 1 gm/10 ml Oral Susp UD PO SCH ×2 (06:49→15:42)
[2019-01-13] MEDS: Budesonide 0.5 mg/2 ml Inhal Susp UD IH SCH ×2 (08:01→20:11)
[2019-01-13] MEDS: Arformoterol 15 mcg/2 ml Inh Sol IH SCH ×2 (08:01→20:11)
[2019-01-13] MEDS: Ipratropium 0.02% Inhal Soln (0.5 mg/2.5 ml) UD IH SCH ×3 (08:01→20:11)
[2019-01-13] MEDS: Potassium Chloride 20 MEQ in Dextrose 5%/0.45% NS 1,000 ML IV SCH (08:57)
[2019-01-13] MEDS: INCRUSE 62.5 MCG IH SCH (09:03)
[2019-01-13] MEDS: ADVAIR INH SCH (09:03)
[2019-01-13 11:39] LABS: HEMOGLOBIN 8.7 g/dL (14.0-18.0); MEAN CELL VOLUME 88.6 fl (80.0-105.0); MEAN CORPUSCULAR HEMOGLOBIN 26.9 pg (25.0-35.0); MEAN CORPUSCULAR HGB CONC 30.3 g/dl (31.0-37.0); RBC 3.24 10^6/uL (3.5-6.1); RED CELL DISTRIBUTION WIDTH 17.4 % (11.5-14.5); WHITE BLOOD COUNT 14.1 10^3/uL (4.5-11.0)
[2019-01-13 11:56] LABS: PLATELET COUNT 26 10^3/uL (120.0-450.0)
[2019-01-13 11:59] LABS: ALB/GLOB RATIO 0.8 (1.1-1.8); ALBUMIN 3.2 g/dL (3.0-4.8); ALT/SGPT 10 U/L (7-56); AST/SGOT 32 U/L (17-59); BLOOD UREA NITROGEN 13 mg/dL (7-21); CALCIUM 8.6 mg/dL (8.4-10.5); GFR NON-AFRICAN AMERICAN > 60
--- NOTE | 2019-01-13 12:04 | PN ---
DATE: 01/13/2019 REFERRING PHYSICIAN: Martinez Jeff MD SUBJECTIVE: The patient is seen lying in bed, in no acute distress. No overnight events reported. The patient had liver, spleen scan done this morning. Report is pending. Reports the cough is better this morning. No headache, rhinitis, shortness of breath, chest pain, abdominal pain, nausea, vomiting, diarrhea, leg pain or leg swelling reported. OBJECTIVE: GENERAL: No acute distress. VITAL SIGNS: Blood pressure 136/85, pulse 106, temperature 99, and oxygen saturation 99% on nasal cannula. HEENT: Moist mucous membranes. Mallampati score 4. Crowded airway. NECK: Supple. No JVD. RESPIRATORY: Few scattered rhonchi. CARDIOVASCULAR: S1 and S2. ABDOMEN: Soft, nontender. No distention. No organomegaly. EXTREMITIES: No bilateral lower extremity edema. NEUROLOGIC: Awake, alert, and verbal. Following commands. MEDICATIONS: Reviewed. Tylenol 650 every 6 hours p.r.n., Brovana 15 mcg every 12 hours, Pulmicort 1 mg every 12 hours, Klonopin 2 mg at bedtime, ferrous sulfate 324 mg daily, Robitussin DM 5 mL every 4 hours p.r.n., Atrovent 0.5 mg inhalation 3 times a day, Reglan 5 mg before meals and h.s., Remeron 45 mg at bedtime, Zofran 4 mg IV push every 6 hours p.r.n., Protonix 40 mg daily, potassium chloride 20 mEq and dextrose 1000 in 10 mL at 35 mL per hour, Daliresp 500 mcg daily, and Carafate 1 g twice a day. LABORATORY DATA: Reviewed. Manual platelet count 25. Lactate dehydrogenase 936. Vitamin B12 pending. Folate pending. TSH 0.19. Iron 14, TIBC 241, percent saturation 6. Liver, spleen nuclear scan report pending. IMPRESSION AND PLAN: Severe anemia, thrombocytopenia, status post transfusion, history of gastrointestinal bleed, chronic obstructive pulmonary disease. Continue sequential compression devices to bilateral lower extremities as the patient cannot be on chemical prophylaxis due to thrombocytopenia and anemia. Vitamin B12 and folate level pending. Continue inhaled bronchodilators, gastric prophylaxis, fall precautions. Hematology/Oncology followup. Recommend physical therapy, out of bed to chair. Recommend the patient have pulmonary function test as outpatient. This patient was seen and examined with Dr. Pang. Discussed assessment and plan as described above. This patient was seen and examined with Toribio Read, nurse practitioner. Discussed assessment and plan as described above. Thanks for this consult. We will follow with you. Toribio Read APN Ricardo Pang MD
--- NOTE | 2019-01-13 12:07 | PN ---
DATE: 01/13/2019 SUBJECTIVE: A 73-year-old white male admitted to the hospital with GI bleed, thrombocytopenia. The patient will have a bone marrow examination by Dr. Raf Anguiano today, most likely will be discharged [facility]. The patient had an endoscopy yesterday. He is stable. Has no further bleeding. PHYSICAL EXAMINATION: VITAL SIGNS: He is afebrile. Blood pressure is stable. CHEST: Clear. ABDOMEN: Soft. Bowel sounds are normoactive. HEART: Regular sinus rhythm. His examination is unchanged. LABORATORY DATA: His is stable at 9.2. His platelet count continues to be 35,000. ASSESSMENT AND PLAN: Plan is for bone marrow examination to determine etiology of his thrombocytopenia and most likely discharge to home, continue proton pump inhibitor and close monitoring of his hemoglobin and hematocrit. Martinez Jeff MD
[2019-01-13 12:56] LABS: FOLATE 9.8 ng/mL
--- NOTE | 2019-01-13 13:12 | PN ---
DATE: 01/13/2019 SUBJECTIVE: The patient is lying in bed. He had a brown, nonbloody, nonmelanotic bowel movement this morning. He is tolerating solid foods without any nausea or vomiting. PHYSICAL EXAMINATION: VITAL SIGNS: Reveals temperature of 99, blood pressure 136/85, heart rate of 106. HEENT: Reveals sclerae to be white. Conjunctivae pale. NECK: Supple. CHEST: Reveal lungs to be clear. HEART: Reveals regular rate and rhythm. ABDOMEN: Soft, nontender, no mass. EXTREMITIES: Show no edema. LABORATORY DATA: White blood cell count 15.4, hemoglobin 9.2, manual platelet count this morning is 25,000. Chemistries reveal LDH of 936 this morning. IMPRESSION: A 73-year-old male admitted to the hospital with profound anemia and thrombocytopenia. 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 His count has been stable over the last 48 hours. However, his platelet count remains low, etiology of the low platelet count is unclear. RECOMMENDATIONS: 1. Continue close observation for signs of bleeding in view of the severe thrombocytopenia. 2. Awaiting Hematology recommendations for further treatment. 3. Awaiting antiplatelet antibodies. Deven Renner MD
--- NOTE | 2019-01-13 13:19 | CP.PCM.PN ---
Subjective - Date & Time of Evaluation Date of Evaluation: 01/13/19 Time of Evaluation: 06:00 - Subjective Subjective: Ye Pinto PGY2 Heme/Onc Progress note for Dr. Lassiter Patient seen and evaluated bedside in AM. No acute issues overnight, patient says he feels okay, denies any new complaints. Denies fever, chills. Objective - Vital Signs/Intake and Output Vital Signs (last 24 hours): Temp Pulse Resp BP Pulse Ox 98.2 F 109 H 20 137/73 99 01/13/19 12:44 01/13/19 12:44 01/13/19 12:44 01/13/19 12:44 01/12/19 09:13 Intake and Output: 01/13/19 01/13/19 06:59 18:59 Intake Total 2420 200 Output Total 300 Balance 2420 -100 - Medications Medications: Current Medications Acetaminophen (Tylenol 325mg Tab) 650 mg PO Q6H PRN PRN Reason: Headache Last Admin: 01/13/19 08:56 Dose: 650 mg Arformoterol Tartrate (Brovana) 15 mcg IH [id number] [facility] Last Admin: 01/13/19 08:01 Dose: 15 mcg Budesonide (Pulmicort Respules) 1 mg IH [id number] [facility] Last Admin: 01/13/19 08:01 Dose: 1 mg Clonazepam (Klonopin) 2 mg PO HS [facility]; Protocol Last Admin: 01/12/19 21:38 Dose: 2 mg Ferrous Sulfate (Feosol) 324 mg PO DAILY [facility] Last Admin: 01/13/19 09:03 Dose: Not Given Guaifenesin/Dextromethorphan (Robitussin Dm) 5 ml PO Q4H PRN PRN Reason: Cough Home Med (Home Med) 1 unit IH DAILY [facility] Last Admin: 01/13/19 09:03 Dose: 1 unit Home Med (Home Med) 1 unit INH DAILY [facility] Last Admin: 01/13/19 09:03 Dose: 1 unit Potassium Chloride 20 meq/ (Dextrose/Sodium Chloride) 1,010 mls @ 75 mls/hr IV .[id number] [facility] Last Admin: 01/13/19 08:57 Dose: 75 mls/hr Ipratropium [place] (Atrovent) 0.5 mg IH TIDRESP [facility] Last Admin: 01/13/19 08:01 Dose: 0.5 mg Metoclopramide HCl (Reglan) 5 mg IVP ACHS [facility] Last Admin: 01/13/19 11:37 Dose: Not Given Mirtazapine (Remeron) 45 mg PO HS [facility] Last Admin: 01/12/19 21:40 Dose: 45 mg Ondansetron HCl (Zofran Inj) 4 mg IVP Q6H PRN PRN Reason: Nausea/Vomiting Last Admin: 01/11/19 13:40 Dose: 4 mg Pantoprazole Sodium (Protonix Ec Tab) 40 mg PO 0600 [facility] Last Admin: 01/13/19 06:49 Dose: 40 mg Roflumilast (Daliresp) 500 mcg PO DAILY [facility] Last Admin: 01/13/19 09:03 Dose: Not Given Sucralfate (Carafate Oral Susp) 1 gm PO 0600,1600 [facility] Last Admin: 01/13/19 06:49 Dose: 1 gm - Labs Labs: 01/13/19 07:00 01/13/19 07:00 PT 16.3 SECONDS (9.4-12.5) H 01/12/19 05:30 INR 1.44 01/12/19 05:30 APTT 35.5 Seconds (26.9-38.3) 01/10/19 11:40 - Constitutional Appears: No Acute Distress - Head Exam Head Exam: ATRAUMATIC, NORMAL INSPECTION, NORMOCEPHALIC - Eye Exam Eye Exam: Normal appearance - ENT Exam ENT Exam: Mucous Membranes Moist - Cardiovascular Exam Cardiovascular Exam: REGULAR RHYTHM Assessment and Plan - Assessment and Plan (Free Text) Plan: Anemia -s/p 2 units PRBC -Hgb 8.7 -Upper endoscopy demonstrated nonbleeeding angiodysplastic lesions -GI consulted, Renner follow recs -flowcytometry pending Thrombocytopenia -platelets 25 on manual count -will obtain bone marrow biopsy -continue to monitor
--- NOTE | 2019-01-13 16:19 | NM ---
Date of service: 01/13/2019 PROCEDURE: Liver-spleen scan. HISTORY: thrombocytopenia r/o sequestration COMPARISON: 01/10/2019 CT abdomen and pelvis. 01/11/2019 abdominal ultrasound. TECHNIQUE: 4.9 mCi technetium 99 M sulfur colloid administered intravenously. FINDINGS: Heterogeneous uptake in the liver. No abnormalities identified in the spleen. Increased accumulation of radionuclide in osseous structures indicative of shift of activity to the reticuloendothelial system. Findings are commonly seen in hepatocellular disease. IMPRESSION: Findings suggestive of hepatocellular disease primarily heterogeneous accumulation of radionuclide in the liver. Shift of activity manifest as increased uptake in osseous structures.
[2019-01-13] MEDS ORDERED: Midazolam 2 MG/2 ML VIAL ONE (16:26)
[2019-01-13] MEDS ORDERED: Midazolam 2 MG/2 ML VIAL IVP ONE (17:05)
[2019-01-13] MEDS ORDERED: Sodium Chloride 0.45% 1,000 ML IV SCH (17:45)
[2019-01-13 17:53] VITALS: TEMP 97.8
[2019-01-13 18:04] VITALS: RESP 16
[2019-01-13 18:12] VITALS: BP 119/77; PULSE 100
--- NOTE | 2019-01-13 19:34 | CT ---
PROCEDURE: CT guided pelvic bone marrow aspiration and biopsy HISTORY: Thrombocytopenia. Evaluate for malignancy or myelodysplastic syndrome PHYSICIAN(S): Raf Anguiano MD. TECHNIQUE: The relative risks and indications of the procedure were explained to the patient and consent obtained. The patient was placed prone on the CT scanner and preliminary images through the pelvis obtained. Conscious sedation and monitoring were provided throughout the procedure by a nurse. The right posterior superior iliac spine was selected for biopsy. The skin was prepped and draped usual sterile fashion. 1 percent xylocaine was used to anesthetize the skin and periosteum. An on control needle was advanced to the right posterior superior iliac spines position confirmed with CT. The needle was advanced through the cortex. Bone marrow aspiration was performed. A blood clot was obtained. Next a core biopsy of the left ilium was performed. Slides were prepared by Dr. Thomson The patient tolerated the procedure well. IMPRESSION: 1. CT-guided pelvic bone marrow aspiration and biopsy as described above.
--- NOTE | 2019-01-14 06:26 | PROCN ---
DATE: 01/13/2019 LOCATION: The patient is in room 269, bed 1. NOTE: The patient was evaluated for thrombocytopenia that has been progressive in conjunction with anemia. In view of this, the patient was advised that we may need to do a bone marrow aspiration biopsy. The patient's consent was obtained. The patient was brought down to the CAT scan department and with the help of Dr. Raf Anguiano the site from the posterior superior iliac crest on the right side was identified with CT imaging and the patient had a bone marrow aspiration biopsy done from the posterior superior iliac crest. Cellular biopsy was obtained. Aspirate was also obtained, sent for various studies including histologic and flow cytometric analysis. Touch preparation of the marrow was also done and a core biopsy was also done for evaluation and assessment. The patient tolerated the procedure well. The patient received conscious sedation throughout with the nurse polish compounder on hand. The patient is going to be discharged in a few hours after the procedure today and is to come back to see us as an outpatient within the next week or so by which time we should have the results of the marrow. Procedure was done with aseptic precautions. No untoward effects were noted. Chandrika Lassiter MD
--- NOTE | 2019-01-15 00:45 | DS ---
HISTORY OF PRESENT ILLNESS: A 73-year-old white male admitted to the hospital with GI bleed and had an endoscopy by Dr. Renner and also was found to have some AVMs in the upper tract. The patient was found to have severe thrombocytopenia down to approximately 35. The patient was seen in consultation by Dr. Lassitre. He had a bone marrow done by Dr. Raf Anguiano, which awaiting results. His platelets are stable. He had no further bleeding. He was transfused hemoglobin approximately . His last H and H were 8.7 and 28.7. Platelet count is 25,000 on manual count. The patient will be followed as an outpatient with repeat labs. The patient will have possible outpatient colonoscopy once his low platelet count is resolved. The patient will also be followed with Hematology/Oncology because of the thrombocytopenia. The patient was discharged home on Protonix and his medications include sucralfate, Daliresp, iron, Klonopin, Atrovent, and Brovana. The patient will be followed as an outpatient. FINAL DISCHARGE DIAGNOSES: Acute gastrointestinal bleed, thrombocytopenia, chronic obstructive pulmonary disease, and history of aortoiliac bypass. Martinez Jeff MD
== END 2019-01-13 21:10 | disposition home or self-care (01) | DRG 378 ==
LOC: ED 20:47 → ERH 22:23 → 2RNO 01-10 02:44
PROVIDERS: ADMIT Internal Medicine; ATTEND Internal Medicine
PROC: 30233N1 Transfusion of Nonautologous Red Blood Cells into Peripheral Vein, Percutaneous Approach (ICD-10-PCS; 2019-01-10)
PROC: 0DJ08ZZ Inspection of Upper Intestinal Tract, Via Natural or Artificial Opening Endoscopic (ICD-10-PCS; principal; 2019-01-12 08:45)
PROC: 07DR3ZX Extraction of Iliac Bone Marrow, Percutaneous Approach, Diagnostic (ICD-10-PCS; 2019-01-13)
PROC: BR2C1ZZ Computerized Tomography (CT Scan) of Pelvis using Low Osmolar Contrast (ICD-10-PCS; 2019-01-13)
DX: K92.2 Gastrointestinal hemorrhage, unspecified (principal); C92.A0 Acute myeloid leukemia with multilineage dysplasia, not having achieved remission; D69.6 Thrombocytopenia, unspecified; K31.819 Angiodysplasia of stomach and duodenum without bleeding; J44.9 Chronic obstructive pulmonary disease, unspecified; R53.1 Weakness; D50.0 Iron deficiency anemia secondary to blood loss (chronic); Z86.79 Personal history of other diseases of the circulatory system; Z87.11 Personal history of peptic ulcer disease; Z87.891 Personal history of nicotine dependence

== ENCOUNTER 2019-01-22 13:35 | Inpatient (IN) | payer MEDICARE ==
[2019-01-22 14:09] VITALS: BMI 18.5
[2019-01-22 14:39] LABS: INR 1.49; PARTIAL THROMBOPLASTIN TIME 32.9 Seconds (26.9-38.3); PROTHROMBIN TIME 16.5 SECONDS (9.4-12.5)
[2019-01-22 14:42] LABS: ALB/GLOB RATIO 0.8 (1.1-1.8); ALBUMIN 3.4 g/dL (3.0-4.8); ALT/SGPT 24 U/L (7-56); AST/SGOT 37 U/L (17-59); BLOOD UREA NITROGEN 14 mg/dL (7-21); CALCIUM 8.4 mg/dL (8.4-10.5); GFR NON-AFRICAN AMERICAN > 60
[2019-01-22 14:50] LABS: TROPONIN I < 0.01 ng/mL
--- NOTE | 2019-01-22 14:53 | RAD ---
Date of service: 01/22/2019 HISTORY: anemia COMPARISON: No prior. TECHNIQUE: 1 view obtained. FINDINGS: LUNGS: No active pulmonary disease. PLEURA: No significant pleural effusion identified, no pneumothorax apparent. CARDIOVASCULAR: No aortic atherosclerotic calcification present. Normal cardiac size. No pulmonary vascular congestion. OSSEOUS STRUCTURES: No significant abnormalities. VISUALIZED UPPER ABDOMEN: Normal. OTHER FINDINGS: None. IMPRESSION: No active disease.
--- NOTE | 2019-01-22 16:08 | ED PDOC ---
Arrival/HPI - General Chief Complaint: Abnormal Labs Time Seen by Provider: 01/22/19 14:09 Historian: Patient - History of Present Illness Narrative History of Present Illness (Text): 01/22/19 16:08 Bahman Dumont is a 73 y.o male with past medical history of anemia and blood transfusions, who presents to the emergency department brought via EMS complaining of weakness to the lower extremities and abnormal blood count. Patient was advise by MD Menendez to come for a check up. Patient states he had blood work that showed very low hemoglobin. Patient states feeling fatigue, dizzy, but denies having shortness of breath, chest pain, abdominal pain, and any other complaint. Time/Duration: 24 hours Symptom Onset: Gradual Symptom Course: Unchanged Activities at Onset: Light Context: Home Past Medical History - Provider Review Nursing Documentation Reviewed: Yes - Infectious Disease Hx of Infectious Diseases: None - Cardiac Hx Cardiac Disorders: No - Pulmonary Hx Chronic Obstructive Pulmonary Disease (COPD): Yes - Neurological Hx Neurological Disorder: No - HEENT Hx HEENT Disorder: No - Renal Hx Renal Disorder: No - Endocrine/Metabolic Hx Endocrine Disorders: No - Hematological/Oncological Hx Blood Disorders: Yes Hx Anemia: Yes - Integumentary Hx Dermatological Disorder: No - Musculoskeletal/Rheumatological Hx Musculoskeletal Disorders: No Hx Falls: No - Gastrointestinal Hx Gastrointestinal Disorders: No - Genitourinary/Gynecological Hx Genitourinary Disorders: No - Psychiatric Hx Psychophysiologic Disorder: No Hx Substance Use: No - Surgical History Hx Abdominal Aortic Aneurysm Repair: Yes - Anesthesia Hx Anesthesia: Yes Hx Anesthesia Reactions: No Hx Malignant Hyperthermia: No Family/Social History - Physician Review Nursing Documentation Reviewed: Yes Family/Social History: Unknown Family HX Smoking Status: Never Smoked Hx Alcohol Use: No Hx Substance Use: No Allergies/Home Meds Allergies/Adverse Reactions: Allergies No Known Allergies Allergy (Verified 01/09/19 20:56) Home Medications: Home Meds Medication Instructions Recorded Confirmed Clonazepam 2 mg PO DAILY 01/09/19 01/09/19 Ferrous Sulfate 325 mg PO DAILY 01/09/19 01/09/19 Fluticasone/Salmeterol 500/50 1 puff INH DAILY 01/09/19 01/09/19 [Advair Diskus 500/50] Mirtazapine 45 mg PO HS 01/09/19 01/09/19 Pantoprazole [Protonix EC Tab] 40 mg PO DAILY 01/09/19 01/09/19 Roflumilast [Daliresp] 500 mcg PO DAILY 01/09/19 01/09/19 Umeclidinium [place] [Incruse 1 puff INH DAILY 01/09/19 01/09/19 Ellipta] Review of Systems - Physician Review All systems were reviewed & negative as marked: Yes - Review of Systems Constitutional: Fatigue. absent: Fevers Respiratory: absent: SOB, Wheezing Cardiovascular: absent: Chest Pain Gastrointestinal: Anorexia. absent: Abdominal Pain Musculoskeletal: absent: Back Pain, Neck Pain Skin: absent: Rash Neurological: Dizziness. absent: Headache Physical Exam Vital Signs Reviewed: Yes Vital Signs Temp Pulse Resp BP Pulse Ox 01/22/19 14:00 98.8 F 96 H 22 101/63 89 L Temperature: Afebrile Blood Pressure: Normal Pulse: Regular Respiratory Rate: Normal Appearance: Positive for: Well-Appearing, Non-Toxic, Comfortable Pain Distress: None Mental Status: Positive for: Alert and Oriented X 3 - Systems Exam Head: Present: Atraumatic, Normocephalic Pupils: Present: PERRL. No: Sluggish, Non-Reactive Extroacular Muscles: Present: EOMI Conjunctiva: Present: Normal Mouth: Present: Moist Mucous Membranes Neck: Present: Normal Range of Motion Respiratory/Chest: Present: Clear to Auscultation, Good Air Exchange. No: Respiratory Distress, Accessory Muscle Use Cardiovascular: Present: Regular Rate and Rhythm, Normal S1, S2. No: Murmurs Abdomen: No: Tenderness, Distention, Peritoneal Signs Back: Present: Normal Inspection Upper Extremity: Present: Normal Inspection. No: Cyanosis, Edema, Tenderness, Swelling Lower Extremity: Present: Normal Inspection. No: Edema Neurological: Present: GCS=15, Speech Normal Skin: Present: Warm, Dry, Pale. No: Rashes Psychiatric: Present: Alert, Oriented x 3, Normal Insight, Normal Concentration Medical Decision Making ED Course and Treatment: 01/22/19 16:29 Impression: 73 y.o male who presents to the emergency department complaining of fatigue and abnormal blood count. Differential Diagnosis included but are not limited to: Plan: -- Labs -- Chest portable stat -- IV fluids -- Reassess and disposition Prior Visits: Notes and results from previous visits were reviewed. Progress Notes: 01/22/19 15:[address] Mitchell who is aware and agrees with emergency department management plan. 01/22/19 17:20 Patient's Hgb is 6.3 L and Plt count is 36 L. Blood transfusion has been accepted by patient. Currently pending call-back from Dr. Mitchell. - Lab Interpretations Narrative Lab Interpretation (Text): 01/22/19 16:39 01/22/19 13:55 Lab Results 01/22/19 13:55: Blood Type A POSITIVE, Antibody Screen Negative, BBK History Checked Patient has bt 01/22/19 13:55: Sodium 133, Potassium 3.5 L, Chloride 93 L, Carbon Dioxide 32, Anion Gap 12, BUN 14, Creatinine 1.0, Est GFR ( Amer) > 60, Est GFR (Non- Af Amer) > 60, Random Glucose 123 H, Calcium 8.4, Total Bilirubin 0.6, AST 37, ALT 24, Alkaline Phosphatase 85, Troponin I < 0.01, Total Protein 7.8, Albumin 3.4, Globulin 4.4, Albumin/Globulin Ratio 0.8 L 01/22/19 13:55: PT 16.5 H, INR 1.49, APTT 32.9 Lab Results: PT 16.5 SECONDS (9.4-12.5) H 01/22/19 13:55 INR 1.49 01/22/19 13:55 APTT 32.9 Seconds (26.9-38.3) 01/22/19 13:55 Troponin I < 0.01 ng/mL 01/22/19 13:55 Total Bilirubin 0.6 mg/dL (0.2-1.3) 01/22/19 13:55 AST 37 U/L (17-59) 01/22/19 13:55 ALT 24 U/L (7-56) 01/22/19 13:55 Alkaline Phosphatase 85 U/L (38-126) 01/22/19 13:55 Total Protein 7.8 g/dL (5.8-8.3) 01/22/19 13:55 Albumin 3.4 g/dL (3.0-4.8) 01/22/19 13:55 Globulin 4.4 gm/dL 01/22/19 13:55 Albumin/Globulin Ratio 0.8 (1.1-1.8) L 01/22/19 13:55 - RAD Interpretation Narrative RAD Interpretations (Text): 01/22/19 14:49 Chest portable Impression: No active disease. Radiology Orders: 01/22/19 14:23 CHEST PORTABLE [RAD] Stat Training Executive: Radiologist - EKG Interpretation EKG Interpretation (Text): 01/22/19 13:42 EKG: Ordered, reviewed, and independently interpreted the EKG. Rate : 100 BPM Rhythm : NSR Interpretation : No ST-segment elevations, no T-wave inversions. Comparison : No previous EKG for comparison. - Scribe Statement The provider has reviewed the documentation as recorded by the Scribe Luzmaria Mcdonough All medical record entries made by the Scribe were at my direction and personally dictated by me. I have reviewed the chart and agree that the record accurately reflects my personal performance of the history, physical exam, medical decision making, and the department course for this patient. I have also personally directed, reviewed, and agree with the discharge instructions and disposition. Disposition/Present on Arrival - Present on Arrival History of DVT/PE: No History of Uncontrolled Diabetes: No Urinary Catheter: No History of Decub. Ulcer: No History Surgical Site Infection Following: None - Disposition Forms: [employer] ([place]ian)
[2019-01-22 16:38] LABS: BASO # 0.02 K/mm3 (0.0-2.0); BASO % 0.1 % (0.0-3.0); EOS # 0.1 (0.0-0.7); EOS % 0.4 % (1.5-5.0); LYMPH # 1.8 (1.2-3.4); LYMPH % 9.5 % (22.0-35.0); MEAN CELL VOLUME 90.5 fl (80.0-105.0); MEAN CORPUSCULAR HEMOGLOBIN 25.9 pg (25.0-35.0); MEAN CORPUSCULAR HGB CONC 28.6 g/dl (31.0-37.0); MONO # 7.6 (0.1-0.6); MONO % 39.1 % (1.0-6.0); RBC 2.43 10^6/uL (3.5-6.1); RED CELL DISTRIBUTION WIDTH 17.6 % (11.5-14.5); WHITE BLOOD COUNT 19.4 10^3/uL (4.5-11.0)
[2019-01-22 16:43] LABS: HEMOGLOBIN 6.3 g/dL (14.0-18.0); PLATELET COUNT 36 10^3/uL (120.0-450.0)
[2019-01-22] MEDS ORDERED: Potassium Chloride 20 mEq/15 ml LIQ UD PO STA (19:33)
[2019-01-22 19:53] LABS: PLATELET COUNT MANUAL 47 K/mm3 (120-450)
[2019-01-22 20:12] LABS: PLATELET ESTIMATE LOW (NORMAL)
[2019-01-22 20:13] LABS: GIANT PLATELETS PRESENT; NUCLEATED RED BLOOD CELL 4 %; ROULEAU 1+
--- NOTE | 2019-01-23 03:17 | HP ---
DATE OF EXAM: 01/22/2019 HISTORY OF PRESENT ILLNESS: The patient is a 73-year-old. I was called by PMD, Dr. Jeff to come to the emergency room because he was found to have a low hemoglobin. The patient states he felt weak, tired and so upon Dr. Jeff's advice, he came from the emergency room for further management. He complained of generalized weakness, on energy, feeling fatigued, tired, but no chest pain or shortness of breath. He was recently discharged on 01/14/2019 after he had extensive workup done for his anemia. He had liver and spleen scan done, which shows hepatocellular disease. He has accumulation of radionuclide in the liver. He had bone marrow done on 01/13/2019. He also has peripheral smear done and that showed abnormal monocytosis and aberrant expression of CD56. There was no evidence of blast population and no evidence of lymphoproliferative disease. He also had an endoscopy done by Dr. Renner. Esophagus was found to be normal. 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 A CT scan of the abdomen and pelvis was done that has no significant acute finding other than tortous abdominal aorta. So, the patient was discharged on 01/14/2019. The patient received multiple transfusions on previous admission too. PAST MEDICAL HISTORY: Significant for; 1. COPD. 2. History of elevated PSA. 3. Anxiety disorder. 4. Iron deficiency anemia. ALLERGIES: NOT ALLERGIC TO ANY MEDICATIONS. HOME MEDICATIONS: He is Klonopin 2 mg at bedtime, he has Incruse Ellipta, Carafate, Protonix 40 mg daily, Remeron 45 mg at bedtime, gabapentin 100 mg at bedtime, ferrous sulfate 324 mg daily and Pulmicort. SOCIAL HISTORY: History of previous smoking. No alcohol use. PHYSICAL EXAMINATION VITAL SIGNS: He is afebrile, pulse 90, respirations 18, blood pressure 98/66. HEENT: Looks pale, nonicteric sclerae, pale conjunctivae. No lymphadenopathy. LUNGS: Bilateral diffusely decreased breath sounds. HEART: S1 and S2 audible. ABDOMEN: Soft, nontender. No rebound, no guarding. NEUROLOGIC: The patient is awake and alert. Able to communicate. EXTREMITIES: Bilateral leg, no edema. LABORATORY DATA: WBC is 19.4, hemoglobin 6.3, hematocrit 22, platelet 36. PT 16.5, INR 1.49. Chemistry; sodium 133, potassium 3.5, chloride 93, CO2 of 32, BUN 14, creatinine 1, blood sugar of 123. ASSESSMENT AND PLAN: 1. Symptomatic anemia. 2. History of gastrointestinal bleed. 3. Gastric arteriovenous malformation. 4. Status post bone marrow biopsy. 5. Chronic obstructive pulmonary disease. 6. Anxiety disorder. PLAN: The patient will be transfused 2 packs of RBCs. We will resume his usual medications. Follow up H and H in a.m. Dr. Lassiter for consult and Dr. Jeff will see the patient in a.m. Nat Mitchell MD
[2019-01-23] MEDS: Sucralfate 1 gm/10 ml Oral Susp UD PO SCH ×2 (05:23→18:21)
[2019-01-23 07:03] LABS: BASO # 0.02 K/mm3 (0.0-2.0); BASO % 0.1 % (0.0-3.0); EOS % 0.2 % (1.5-5.0); HEMOGLOBIN 7.6 g/dL (14.0-18.0); LYMPH # 1.7 (1.2-3.4); LYMPH % 9.6 % (22.0-35.0); MEAN CELL VOLUME 84.4 fl (80.0-105.0); MEAN CORPUSCULAR HEMOGLOBIN 25.2 pg (25.0-35.0); MEAN CORPUSCULAR HGB CONC 29.8 g/dl (31.0-37.0); MONO # 6.6 (0.1-0.6); MONO % 37.9 % (1.0-6.0); RBC 3.02 10^6/uL (3.5-6.1); RED CELL DISTRIBUTION WIDTH 22.6 % (11.5-14.5); WHITE BLOOD COUNT 17.4 10^3/uL (4.5-11.0)
[2019-01-23 07:21] LABS: PLATELET COUNT 24 10^3/uL (120.0-450.0)
[2019-01-23 07:22] LABS: PLATELET ESTIMATE LOW (NORMAL)
[2019-01-23 07:39] LABS: ALB/GLOB RATIO 0.8 (1.1-1.8); ALT/SGPT 23 U/L (7-56); AST/SGOT 29 U/L (17-59); BLOOD UREA NITROGEN 14 mg/dL (7-21); CALCIUM 8.2 mg/dL (8.4-10.5); GFR NON-AFRICAN AMERICAN > 60
[2019-01-23] MEDS: Albuterol-Ipratrop 3 mg / 0.5 (3 ml) UD IH PRN ×2 (08:03→13:40)
[2019-01-23] MEDS: Arformoterol 15 mcg/2 ml Inh Sol IH SCH ×3 (08:03→19:36)
--- NOTE | 2019-01-23 09:09 | CP.PCM.CON ---
History of Present Illness - History of Present Illness History of Present Illness: Ye Pinto Heme/Onc Consult Note for Dr. Lassiter 73 year old male with past medical history of anemia and COPD presents with low hemoglobin. Patient has blood work done and was told his hemoglobin was low and came in for transfusion. He had similar episode 10 days ago where he was found to have low Hgb, was transfused and seen by GI. endoscopy was done as well as bone marrow biopsy. He currently denies chest pain, abdominal pain, nausea, vomiting, fever, chills, or any other complaints at this time. PMH:anemia and COPD PSH: hernia repair, aneurysm Allergies: NKDA Social: PMD: Dr. Jeff Meds: Per MAR Review of Systems - Review of Systems Review of Systems: Negative except for that mentioned in HPI Past Patient History - Infectious Disease Hx of Infectious Diseases: None - Past Social History Smoking Status: Never Smoked - CARDIAC Hx Cardiac Disorders: No - PULMONARY Hx Chronic Obstructive Pulmonary Disease (COPD): Yes - NEUROLOGICAL Hx Neurological Disorder: No - HEENT Hx HEENT Problems: No - RENAL Hx Chronic Kidney Disease: No - ENDOCRINE/METABOLIC Hx Endocrine Disorders: No - HEMATOLOGICAL/ONCOLOGICAL Hx Blood Disorders: Yes Hx Anemia: Yes - INTEGUMENTARY Hx Dermatological Problems: No - MUSCULOSKELETAL/RHEUMATOLOGICAL Hx Musculoskeletal Disorders: No Hx Falls: No - GASTROINTESTINAL Hx Gastrointestinal Disorders: No - GENITOURINARY/GYNECOLOGICAL Hx Genitourinary Disorders: No - PSYCHIATRIC Hx Psychophysiologic Disorder: No - SURGICAL HISTORY Hx Surgeries: Yes (Aortic aneursym repair) - ANESTHESIA Hx Anesthesia: Yes Hx Anesthesia Reactions: No Hx Malignant Hyperthermia: No Meds Allergies/Adverse Reactions: Allergies Allergy/AdvReac Type Severity Reaction Status Date / Time No Known Allergies Allergy Verified 01/09/19 20:56 - Medications Medications: Current Medications Acetaminophen (Tylenol 325mg Tab) 650 mg PO Q6H PRN PRN Reason: Fever >100.4 F Albuterol/Ipratropium (Duoneb 3 Mg/0.5 Mg (3 Ml) Ud) 3 ml IH Q2H PRN PRN Reason: Shortness of Breath Last Admin: 01/23/19 08:03 Dose: 3 ml Arformoterol Tartrate (Brovana) 15 mcg IH [id number] [facility] Last Admin: 01/23/19 08:03 Dose: 15 mcg Clonazepam (Klonopin) 2 mg PO DAILY [facility] Clonazepam (Klonopin) 2 mg PO HS [facility]; Protocol Last Admin: 01/22/19 22:31 Dose: 2 mg Ferrous Sulfate (Feosol) 324 mg PO DAILY [facility] Gabapentin (Neurontin) 100 mg PO HS [facility]; Protocol Last Admin: 01/22/19 22:32 Dose: 100 mg Mirtazapine (Remeron) 45 mg PO HS [facility] Last Admin: 01/22/19 22:32 Dose: 45 mg Ondansetron HCl (Zofran Inj) 4 mg IVP Q6H PRN PRN Reason: Nausea/Vomiting Pantoprazole Sodium (Protonix Ec Tab) 40 mg PO DAILY [facility] Roflumilast (Daliresp) 500 mcg PO DAILY [facility] Sucralfate (Carafate Oral Susp) 1 gm PO 0600,1600 [facility] Last Admin: 01/23/19 05:23 Dose: 1 gm Physical Exam - Constitutional Appears: No Acute Distress - Head Exam Head Exam: ATRAUMATIC, NORMAL INSPECTION, NORMOCEPHALIC - Eye Exam Eye Exam: EOMI, Normal appearance - ENT Exam ENT Exam: Mucous Membranes Moist - Respiratory Exam Respiratory Exam: Clear to Auscultation Bilateral, NORMAL BREATHING PATTERN - Cardiovascular Exam Cardiovascular Exam: REGULAR RHYTHM - GI/Abdominal Exam GI & Abdominal Exam: Soft. absent: Tenderness - Neurological Exam Neurological exam: Alert, Oriented x3 Results - Vital Signs Recent Vital Signs: Last Vital Signs Temp 98.5 F 01/23/19 08:01 Pulse 94 H 01/23/19 06:00 Resp 19 01/23/19 06:00 BP 103/66 01/23/19 06:00 Pulse Ox 94 L 01/23/19 06:00 - Labs Result Diagrams: 01/23/19 06:30 01/23/19 06:30 Labs: Laboratory Results - last 24 hr 01/22/19 01/22/19 01/22/19 13:55 13:55 13:55 WBC RBC Hgb Hct MCV MCH MCHC RDW Plt Count Manual Plt Count Neut % (Auto) Lymph % (Auto) [place] % (Auto) Eos % (Auto) Baso % (Auto) Lymph # (Auto) [place] # (Auto) Eos # (Auto) Baso # (Auto) Absolute Neuts (auto) Neutrophils % (Manual) Lymphocytes % (Manual) Monocytes % (Manual) Nucleated RBC % Platelet Evaluation Giant Platelets Rouleaux PT 16.5 H INR 1.49 APTT 32.9 Sodium 133 Potassium 3.5 L Chloride 93 L Carbon Dioxide 32 Anion Gap 12 BUN 14 Creatinine 1.0 Est GFR ( Amer) > 60 Est GFR (Non-Af Amer) > 60 Random Glucose 123 H Calcium 8.4 Total Bilirubin 0.6 AST 37 ALT 24 Alkaline Phosphatase 85 Troponin I < 0.01 Total Protein 7.8 Albumin 3.4 Globulin 4.4 Albumin/Globulin Ratio 0.8 L Blood Type A POSITIVE Antibody Screen Negative Crossmatch See Detail BBK History Checked Patient has bt 01/22/19 01/23/19 01/23/19 16:00 06:30 06:30 WBC 19.4 H D 17.4 H RBC 2.43 L 3.02 L Hgb 6.3 L* D 7.6 L Hct 22.0 L 25.5 L MCV 90.5 84.4 D MCH 25.9 25.2 MCHC 28.6 L 29.8 L RDW 17.6 H 22.6 H Plt Count 36 L* 24 L* Manual Plt Count 47 L* Neut % (Auto) 50.9 52.2 Lymph % (Auto) 9.5 L 9.6 L [place] % (Auto) 39.1 H 37.9 H Eos % (Auto) 0.4 L 0.2 L Baso % (Auto) 0.1 0.1 Lymph # (Auto) 1.8 1.7 [place] # (Auto) 7.6 H 6.6 H Eos # (Auto) 0.1 0.0 Baso # (Auto) 0.02 0.02 Absolute Neuts (auto) 9.90 H 9.09 H Neutrophils % (Manual) TEST NOT PERFORMED Lymphocytes % (Manual) TEST NOT PERFORMED Monocytes % (Manual) TEST NOT PERFORMED Nucleated RBC % 4 Platelet Evaluation Low Low Giant Platelets Present Rouleaux 1+ PT INR APTT Sodium 132 Potassium 4.1 Chloride 95 L Carbon Dioxide 30 Anion Gap 12 BUN 14 Creatinine 0.9 Est GFR ( Amer) > 60 Est GFR (Non-Af Amer) > 60 Random Glucose 100 Calcium 8.2 L Total Bilirubin 0.9 AST 29 ALT 23 Alkaline Phosphatase 75 Troponin I Total Protein 6.8 Albumin 3.0 Globulin 3.9 Albumin/Globulin Ratio 0.8 L Blood Type Antibody Screen Crossmatch BBK History Checked Assessment & Plan - Assessment and Plan (Free Text) Plan: 1. Anemia -Hgb 6.3 on admission -currently Hgb is 7.6 s/p 2 units PRBC -platelets 24 -will obtain bone marrow biopsy results once finalized -monitor H/H -transfuse as needed -flow cytometry reviewed
[2019-01-23] MEDS: Pantoprazole 40 mg EC Tab PO SCH (10:43)
[2019-01-23 11:00] LABS: ATYPICAL LYMPHOCYTE 1 % (0.0-0.0); BAND 1 % (0-2); LYMPHOCYTE 14 % (22.0-35.0); MONOCYTE 32 % (1.0-6.0); NEUTROPHIL 44 % (50.0-70.0)
[2019-01-23 11:01] LABS: METAMYELOCYTE 3 %
--- NOTE | 2019-01-23 19:14 | CARD ---
APPROVED REPORT Date of service: 01/22/2019 EKG Measurement Heart [id number] MD [id number] <Conclusion> Normal sinus rhythm Normal ECG
--- NOTE | 2019-01-23 21:48 | PN ---
DATE: 01/23/2019 SUBJECTIVE: The patient has no complaints of any chest pain. No shortness of breath. No headaches. PHYSICAL EXAMINATION: VITAL SIGNS: Temperature is 98.9, pulse of 96, blood pressure 103/68, and respirations 15. GENERAL: The patient is lying in bed, flat, comfortable. HEENT: No oral lesion. Anicteric sclerae. Moist mucosa. NECK: No JVD, adenopathy, or thyromegaly. CARDIOVASCULAR: S1 and S2, regular. No murmurs, rubs, or gallops. LUNGS: Clear to auscultation bilaterally. No wheeze, rales, or rhonchi. ABDOMEN: Bowel sounds are positive, soft, nontender and nondistended. EXTREMITIES: No cyanosis, clubbing or edema. LABORATORY DATA: White count of 17.4 and hemoglobin of 17.6. Creatinine is 0.9. ASSESSMENT: 1. Acute anemia, unknown etiology. 2. Thrombocytopenia. 3. Leukocytosis. 4. Chronic obstructive pulmonary disease. PLAN: The patient was given 2 units of transfusion, his hemoglobin is better. He is going to be seen by Dr. Lassiter. The patient had low-grade fever when he was getting transfusion, since then he has been afebrile. He is on Daliresp for his COPD. He is on iron replacement. The patient is on Neurontin for neuropathy. He is on heart-healthy diet. I will repeat his a.m. labs and chemistry. This is coverage for Dr. Jeff. Mike Jauregui MD
[2019-01-24] MEDS ORDERED: guaiFENesin 100 mg/5 ml Syrup UD PO PRN (01:34)
[2019-01-24] MEDS: Sucralfate 1 gm/10 ml Oral Susp UD PO SCH ×2 (05:34→17:03)
[2019-01-24 07:17] LABS: HEMOGLOBIN 8.8 g/dL (14.0-18.0); MEAN CELL VOLUME 84.5 fl (80.0-105.0); MEAN CORPUSCULAR HEMOGLOBIN 26.2 pg (25.0-35.0); RBC 3.36 10^6/uL (3.5-6.1); RED CELL DISTRIBUTION WIDTH 20.3 % (11.5-14.5); WHITE BLOOD COUNT 13.6 10^3/uL (4.5-11.0)
--- NOTE | 2019-01-24 07:19 | CP.PCM.PN ---
Subjective - Date & Time of Evaluation Date of Evaluation: 01/24/19 Time of Evaluation: 07:19 - Subjective Subjective: S:Patient was seen by bedside. Complains of dry cough. Has no other complaints. It was requested by resident physician to co-sing order for Robitussin. Pertinent medical was reviewed. O:VSS. Not in acute distress. LUNGS:Normal breathing pattern. A:Cough. P:Robitussin as ordered. Objective - Vital Signs/Intake and Output Vital Signs (last 24 hours): Temp Pulse Resp BP Pulse Ox 98.9 F 88 18 123/85 95 01/24/19 06:19 01/24/19 06:19 01/24/19 06:19 01/24/19 06:19 01/23/19 23:27 Intake and Output: 01/24/19 01/24/19 06:59 18:59 Intake Total 625 Output Total 1100 Balance -475 - Medications Medications: Current Medications Acetaminophen (Tylenol 325mg Tab) 650 mg PO Q6H PRN PRN Reason: Fever >100.4 F Albuterol/Ipratropium (Duoneb 3 Mg/0.5 Mg (3 Ml) Ud) 3 ml IH Q2H PRN PRN Reason: Shortness of Breath Last Admin: 01/23/19 13:40 Dose: 3 ml Arformoterol Tartrate (Brovana) 15 mcg IH [id number] [facility] Last Admin: 01/23/19 19:36 Dose: 15 mcg Clonazepam (Klonopin) 2 mg PO DAILY [facility] Last Admin: 01/23/19 10:43 Dose: 2 mg Clonazepam (Klonopin) 2 mg PO HS [facility]; Protocol Last Admin: 01/23/19 22:16 Dose: 2 mg Ferrous Sulfate (Feosol) 324 mg PO DAILY [facility] Last Admin: 01/23/19 10:43 Dose: 324 mg Gabapentin (Neurontin) 100 mg PO HS [facility]; Protocol Last Admin: 01/23/19 22:17 Dose: 100 mg Guaifenesin (Robitussin) 100 mg PO Q4H PRN PRN Reason: Cough Last Admin: 01/24/19 01:53 Dose: 100 mg Ibuprofen (Motrin Tab) 600 mg PO Q6H PRN PRN Reason: Pain, moderate (4-7) Mirtazapine (Remeron) 45 mg PO HS [facility] Last Admin: 01/23/19 22:17 Dose: 45 mg Ondansetron HCl (Zofran Inj) 4 mg IVP Q6H PRN PRN Reason: Nausea/Vomiting Pantoprazole Sodium (Protonix Ec Tab) 40 mg PO DAILY [facility] Last Admin: 01/23/19 10:43 Dose: 40 mg Roflumilast (Daliresp) 500 mcg PO DAILY [facility] Last Admin: 01/23/19 10:43 Dose: 500 mcg Sucralfate (Carafate Oral Susp) 1 gm PO 0600,1600 [facility] Last Admin: 01/24/19 05:34 Dose: 1 gm Tramadol HCl (Ultram) 50 mg PO Q8 PRN PRN Reason: Pain, severe (8-10) Last Admin: 01/24/19 01:53 Dose: 50 mg - Labs Labs: 01/23/19 06:30 01/23/19 06:30 PT 16.5 SECONDS (9.4-12.5) H 01/22/19 13:55 INR 1.49 01/22/19 13:55 APTT 32.9 Seconds (26.9-38.3) 01/22/19 13:55
[2019-01-24] MEDS: Arformoterol 15 mcg/2 ml Inh Sol IH SCH ×2 (07:21→19:55)
[2019-01-24 07:30] LABS: PLATELET COUNT 33 10^3/uL (120.0-450.0)
[2019-01-24 07:41] LABS: ALB/GLOB RATIO 0.8 (1.1-1.8); ALT/SGPT 22 U/L (7-56); AST/SGOT 38 U/L (17-59); BLOOD UREA NITROGEN 13 mg/dL (7-21); CALCIUM 8.3 mg/dL (8.4-10.5); GFR NON-AFRICAN AMERICAN > 60
--- NOTE | 2019-01-24 08:33 | CP.PCM.PN ---
Subjective - Date & Time of Evaluation Date of Evaluation: 01/24/19 Time of Evaluation: 06:00 - Subjective Subjective: Ye Pinto Heme/Onc Progress Note for Dr. Lassiter Patient seen and evaluated bedside in AM. No acute issues overnight. Patient denies any chest pain, SOB, fever, chills or any other complaints. Objective - Vital Signs/Intake and Output Vital Signs (last 24 hours): Temp Pulse Resp BP Pulse Ox 98.9 F 88 18 123/85 97 01/24/19 06:19 01/24/19 06:19 01/24/19 06:19 01/24/19 06:19 01/24/19 06:00 Intake and Output: 01/24/19 01/24/19 06:59 18:59 Intake Total 625 Output Total 1100 Balance -475 - Medications Medications: Current Medications Acetaminophen (Tylenol 325mg Tab) 650 mg PO Q6H PRN PRN Reason: Fever >100.4 F Last Admin: 01/24/19 08:28 Dose: 650 mg Albuterol/Ipratropium (Duoneb 3 Mg/0.5 Mg (3 Ml) Ud) 3 ml IH Q2H PRN PRN Reason: Shortness of Breath Last Admin: 01/23/19 13:40 Dose: 3 ml Arformoterol Tartrate (Brovana) 15 mcg IH [id number] [facility] Last Admin: 01/24/19 07:21 Dose: 15 mcg Clonazepam (Klonopin) 2 mg PO DAILY [facility] Last Admin: 01/23/19 10:43 Dose: 2 mg Clonazepam (Klonopin) 2 mg PO HS [facility]; Protocol Last Admin: 01/23/19 22:16 Dose: 2 mg Ferrous Sulfate (Feosol) 324 mg PO DAILY [facility] Last Admin: 01/23/19 10:43 Dose: 324 mg Gabapentin (Neurontin) 100 mg PO HS [facility]; Protocol Last Admin: 01/23/19 22:17 Dose: 100 mg Guaifenesin (Robitussin) 100 mg PO Q4H PRN PRN Reason: Cough Last Admin: 01/24/19 01:53 Dose: 100 mg Ibuprofen (Motrin Tab) 600 mg PO Q6H PRN PRN Reason: Pain, moderate (4-7) Mirtazapine (Remeron) 45 mg PO HS [facility] Last Admin: 01/23/19 22:17 Dose: 45 mg Ondansetron HCl (Zofran Inj) 4 mg IVP Q6H PRN PRN Reason: Nausea/Vomiting Pantoprazole Sodium (Protonix Ec Tab) 40 mg PO DAILY [facility] Last Admin: 01/23/19 10:43 Dose: 40 mg Roflumilast (Daliresp) 500 mcg PO DAILY [facility] Last Admin: 01/23/19 10:43 Dose: 500 mcg Sucralfate (Carafate Oral Susp) 1 gm PO 0600,1600 [facility] Last Admin: 01/24/19 05:34 Dose: 1 gm Tramadol HCl (Ultram) 50 mg PO Q8 PRN PRN Reason: Pain, severe (8-10) Last Admin: 01/24/19 01:53 Dose: 50 mg - Labs Labs: 01/24/19 07:00 01/24/19 07:00 PT 16.5 SECONDS (9.4-12.5) H 01/22/19 13:55 INR 1.49 01/22/19 13:55 APTT 32.9 Seconds (26.9-38.3) 01/22/19 13:55 - Constitutional Appears: No Acute Distress - Head Exam Head Exam: ATRAUMATIC, NORMAL INSPECTION, NORMOCEPHALIC - Eye Exam Eye Exam: Normal appearance - ENT Exam ENT Exam: Mucous Membranes Moist - Respiratory Exam Respiratory Exam: Clear to Ausculation Bilateral, NORMAL BREATHING PATTERN - Cardiovascular Exam Cardiovascular Exam: REGULAR RHYTHM - GI/Abdominal Exam GI & Abdominal Exam: Soft. absent: Tenderness Assessment and Plan - Assessment and Plan (Free Text) Plan: 1. 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
--- NOTE | 2019-01-24 10:20 | PN ---
DATE: 01/24/2019 SUBJECTIVE: A 73-year-old white male admitted to the hospital with severe anemia, severe thrombocytopenia, status post bone marrow, also had an elevated white count which is down to 13,600 from 19,000. His hemoglobin came in with hemoglobin of less than 6.5, it is up to 8.8. His platelet count in remain low at 33,000. The rest of the laboratory are unremarkable. PHYSICAL EXAMINATION: GENERAL: The patient is complaining of abdominal pain at the site of his previous bone marrow. VITAL SIGNS: He is afebrile. Stable. CHEST: Clear to auscultation and percussion. HEART: Regular sinus rhythm. ABDOMEN: . PLAN: Follows his labs. Recheck pathology from his bone marrow examination. Discussed the case with Dr. Lassiter for possible treatment of thrombocytopenia, possible re-colonoscopy for recurrent blood loss. The patient has had AVMs in the past. We will reconsult Dr. Renner and followup on the bone marrow examination. Martinez Jeff MD
[2019-01-24] MEDS: Pantoprazole 40 mg EC Tab PO SCH (11:04)
[2019-01-24 22:40] VITALS: PULSE 90
[2019-01-25] MEDS: Sucralfate 1 gm/10 ml Oral Susp UD PO SCH ×2 (05:23→16:57)
[2019-01-25] MEDS: Albuterol-Ipratrop 3 mg / 0.5 (3 ml) UD IH PRN (07:36)
[2019-01-25] MEDS: Arformoterol 15 mcg/2 ml Inh Sol IH SCH (07:36)
[2019-01-25 08:50] VITALS: BP 114/71; RESP 16; TEMP 98; O2SAT 98
--- NOTE | 2019-01-25 09:15 | CP.PCM.PN ---
Subjective - Date & Time of Evaluation Date of Evaluation: 01/25/19 Time of Evaluation: 06:00 - Subjective Subjective: Ye Pinto PGY2 Heme/Onc Progress Note for Dr. Lassiter Patient seen and evaluated bedside in AM. No acute issues overnight. Patient denies any acute complaints. Objective - Vital Signs/Intake and Output Vital Signs (last 24 hours): Temp Pulse Resp BP Pulse Ox 98 F 90 16 114/71 98 01/25/19 06:00 01/25/19 06:00 01/25/19 06:00 01/25/19 06:00 01/25/19 06:00 Intake and Output: 01/25/19 01/25/19 06:59 18:59 Intake Total 720 Output Total 400 Balance 320 - Medications Medications: Current Medications Acetaminophen (Tylenol 325mg Tab) 650 mg PO Q6H PRN PRN Reason: Fever >100.4 F Last Admin: 01/24/19 08:28 Dose: 650 mg Albuterol/Ipratropium (Duoneb 3 Mg/0.5 Mg (3 Ml) Ud) 3 ml IH Q2H PRN PRN Reason: Shortness of Breath Last Admin: 01/25/19 07:36 Dose: 3 ml Arformoterol Tartrate (Brovana) 15 mcg IH [id number] [facility] Last Admin: 01/25/19 07:36 Dose: 15 mcg Clonazepam (Klonopin) 2 mg PO DAILY [facility] Last Admin: 01/24/19 11:04 Dose: 2 mg Clonazepam (Klonopin) 2 mg PO HS [facility]; Protocol Last Admin: 01/25/19 05:35 Dose: 2 mg Ferrous Sulfate (Feosol) 324 mg PO DAILY [facility] Last Admin: 01/24/19 11:04 Dose: 324 mg Gabapentin (Neurontin) 100 mg PO HS [facility]; Protocol Last Admin: 01/25/19 05:35 Dose: 100 mg Guaifenesin (Robitussin) 100 mg PO Q4H PRN PRN Reason: Cough Last Admin: 01/24/19 01:53 Dose: 100 mg Ibuprofen (Motrin Tab) 600 mg PO Q6H PRN PRN Reason: Pain, moderate (4-7) Mirtazapine (Remeron) 45 mg PO HS [facility] Last Admin: 01/25/19 05:35 Dose: 45 mg Ondansetron HCl (Zofran Inj) 4 mg IVP Q6H PRN PRN Reason: Nausea/Vomiting Pantoprazole Sodium (Protonix Ec Tab) 40 mg PO DAILY [facility] Last Admin: 01/24/19 11:04 Dose: 40 mg Roflumilast (Daliresp) 500 mcg PO DAILY [facility] Last Admin: 01/24/19 11:04 Dose: 500 mcg Sucralfate (Carafate Oral Susp) 1 gm PO 0600,1600 [facility] Last Admin: 01/25/19 05:23 Dose: 1 gm Tramadol HCl (Ultram) 50 mg PO Q8 PRN PRN Reason: Pain, severe (8-10) Last Admin: 01/25/19 08:36 Dose: 50 mg - Labs Labs: 01/24/19 07:00 01/24/19 07:00 PT 16.5 SECONDS (9.4-12.5) H 01/22/19 13:55 INR 1.49 01/22/19 13:55 APTT 32.9 Seconds (26.9-38.3) 01/22/19 13:55 - Constitutional Appears: No Acute Distress - Head Exam Head Exam: ATRAUMATIC, NORMAL INSPECTION, NORMOCEPHALIC - Eye Exam Eye Exam: Normal appearance - ENT Exam ENT Exam: Mucous Membranes Moist - Respiratory Exam Respiratory Exam: NORMAL BREATHING PATTERN - Neurological Exam Neurological Exam: Alert, Awake, Oriented x3 Assessment and Plan - Assessment and Plan (Free Text) Plan: 1. 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
[2019-01-25] MEDS: Pantoprazole 40 mg EC Tab PO SCH (10:02)
[2019-01-25 13:09] LABS: BASO # 0.01 K/mm3 (0.0-2.0); BASO % 0.1 % (0.0-3.0); EOS # 0.2 (0.0-0.7); EOS % 2.1 % (1.5-5.0); HEMOGLOBIN 9.9 g/dL (14.0-18.0); LYMPH # 1.2 (1.2-3.4); LYMPH % 10.4 % (22.0-35.0); MEAN CELL VOLUME 86.7 fl (80.0-105.0); MEAN CORPUSCULAR HEMOGLOBIN 26.8 pg (25.0-35.0); MEAN CORPUSCULAR HGB CONC 30.9 g/dl (31.0-37.0); MONO # 4.9 (0.1-0.6); MONO % 43.2 % (1.0-6.0); RBC 3.69 10^6/uL (3.5-6.1); RED CELL DISTRIBUTION WIDTH 20.8 % (11.5-14.5); WHITE BLOOD COUNT 11.2 10^3/uL (4.5-11.0)
[2019-01-25 13:17] LABS: ALB/GLOB RATIO 0.8 (1.1-1.8); ALBUMIN 3.2 g/dL (3.0-4.8); ALT/SGPT 24 U/L (7-56); AST/SGOT 29 U/L (17-59); BLOOD UREA NITROGEN 14 mg/dL (7-21); CALCIUM 8.7 mg/dL (8.4-10.5); GFR NON-AFRICAN AMERICAN > 60
[2019-01-25 13:21] LABS: PLATELET COUNT 25 10^3/uL (120.0-450.0)
--- NOTE | 2019-01-25 13:24 | PN ---
DATE: 01/25/2019 SUBJECTIVE: A 73-year-old white male admitted to the hospital with anemia, thrombocytopenia and leukocytosis. 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 The patient's platelet count today is 33,000 and was stable, hemoglobin was 8.8, status post transfusion. He was seen in consultation by Dr. Lassiter. Discussion yesterday with Dr. Lassiter for possible transfer to [place] versus treatment here. The patient is agreeable to be treated here, would like to meet outpatient if possible, the case will be discussed with Dr. Lassiter today to decide when he will start treatment. At this point, the vital signs are stable. His platelet count is stable. His hemoglobin is 8.8. He is afebrile. Vital signs are stable. His physical examination is unchanged. The patient will be discussed with Dr. Lassiter for possible initiation of treatment versus discharge and treatment as an outpatient. Martinez Jeff MD
== END 2019-01-25 18:24 | disposition home health service (06) | DRG 836 ==
LOC: ED 13:35 → ERH 17:33 → 2RNO 21:11 → 5RNO 01-23 13:29
PROVIDERS: ADMIT Internal Medicine; ATTEND Internal Medicine
PROC: 30233N1 Transfusion of Nonautologous Red Blood Cells into Peripheral Vein, Percutaneous Approach (ICD-10-PCS; principal; 2019-01-22)
PROC: 30233R1 Transfusion of Nonautologous Platelets into Peripheral Vein, Percutaneous Approach (ICD-10-PCS; 2019-01-23)
PROC: 3E0F7GC Introduction of Other Therapeutic Substance into Respiratory Tract, Via Natural or Artificial Opening (ICD-10-PCS; 2019-01-23)
DX: C92.00 Acute myeloblastic leukemia, not having achieved remission (principal); D50.9 Iron deficiency anemia, unspecified; D69.6 Thrombocytopenia, unspecified; J44.9 Chronic obstructive pulmonary disease, unspecified; G62.9 Polyneuropathy, unspecified; K31.819 Angiodysplasia of stomach and duodenum without bleeding; F41.9 Anxiety disorder, unspecified; Z87.891 Personal history of nicotine dependence

== ENCOUNTER 2019-01-30 11:09 | Inpatient (IN) | payer MEDICARE ==
[2019-01-30 11:09] VITALS: BMI 18.5
--- NOTE | 2019-01-30 11:19 | ED PDOC ---
Arrival/HPI - History of Present Illness Narrative History of Present Illness (Text): 01/30/19 11:18 Patient is a 73 year old male with past medical history of recently diagnosed AML, anemia, thrombocytopenia, COPD presenting with chief complaint of rectal bleeding for the past day. Patient states he first noticed a few drops of blood in the toilet bowl this morning and also noticed drops of blood on his bedsheets. Admits to fatigue however this is unchanged from baseline. Denies fevers, chills, chest pain, shortness of breath, abdominal pain, diarrhea, dysuria. Time/Duration: 24 hours Symptom Onset: Sudden Symptom Course: Unchanged Context: Home <Laura Sears L - Last Filed: 01/30/19 16:32> <Terry Nunez - Last Filed: 01/30/19 18:30> - General Time Seen by Provider: 01/30/19 11:09 Past Medical History - Provider Review Nursing Documentation Reviewed: Yes - Infectious Disease Hx of Infectious Diseases: None - Cardiac Hx Cardiac Disorders: No - Pulmonary Hx Chronic Obstructive Pulmonary Disease (COPD): Yes - Neurological Hx Neurological Disorder: No - HEENT Hx HEENT Disorder: No - Renal Hx Renal Disorder: No - Endocrine/Metabolic Hx Endocrine Disorders: No - Hematological/Oncological Hx Blood Disorders: Yes Hx Anemia: Yes - Integumentary Hx Dermatological Disorder: No - Musculoskeletal/Rheumatological Hx Musculoskeletal Disorders: No Hx Falls: No - Gastrointestinal Hx Gastrointestinal Disorders: No - Genitourinary/Gynecological Hx Genitourinary Disorders: No - Psychiatric Hx Psychophysiologic Disorder: No Hx Substance Use: No - Surgical History Hx Abdominal Aortic Aneurysm Repair: Yes - Anesthesia Hx Anesthesia: Yes Hx Anesthesia Reactions: No Hx Malignant Hyperthermia: No <Laura Sears - Last Filed: 01/30/19 16:32> Family/Social History - Physician Review Nursing Documentation Reviewed: Yes Family/Social History: No Known Family HX Smoking Status: Never Smoked Hx Alcohol Use: No Hx Substance Use: No <Laura Sears - Last Filed: 01/30/19 16:32> Allergies/Home Meds <Laura Sears - Last Filed: 01/30/19 16:32> <Terry Nunez L - Last Filed: 01/30/19 18:30> Allergies/Adverse Reactions: Allergies No Known Allergies Allergy (Verified 01/30/19 16:37) Home Medications: Home Meds Medication Instructions Recorded Confirmed Clonazepam 2 mg PO DAILY 01/09/19 01/30/19 Fluticasone/Salmeterol 500/50 1 puff INH DAILY 01/09/19 01/30/19 [Advair Diskus 500/50] Umeclidinium Elrama [Incruse 1 puff INH DAILY 01/09/19 01/30/19 Ellipta] Gabapentin [Neurontin] 100 mg PO HS 01/22/19 01/30/19 Review of Systems - Physician Review All systems were reviewed & negative as marked: Yes - Review of Systems Respiratory: Normal Cardiovascular: Normal Gastrointestinal: Hematochezia Genitourinary Male: Normal <Laura Sears - Last Filed: 01/30/19 16:32> Physical Exam Vital Signs Reviewed: Yes Temperature: Afebrile Blood Pressure: Normal Pulse: Tachycardic Respiratory Rate: Normal Appearance: Positive for: Cachectic Pain Distress: None Mental Status: Positive for: Alert and Oriented X 3 - Systems Exam Head: Present: Atraumatic, Normocephalic Pupils: Present: PERRL Extroacular Muscles: Present: EOMI Conjunctiva: Present: Other (pale) Respiratory/Chest: Present: Clear to Auscultation, Good Air Exchange. No: Respiratory Distress, Accessory Muscle Use Cardiovascular: Present: Regular Rate and Rhythm, Normal S1, S2, Tachycardic Abdomen: Present: Normal Bowel Sounds. No: Tenderness, Distention, Peritoneal Signs, Rebound, Guarding Rectal: Present: Gross Blood Lower Extremity: Present: Normal Inspection Neurological: Present: GCS=15, CN II-XII Intact, Speech Normal Skin: Present: Warm, Dry, Normal Color Psychiatric: Present: Alert, Oriented x 3 <Laura Sears - Last Filed: 01/30/19 16:32> Medical Decision Making ED Course and Treatment: 01/30/19 15:30 Impression: 73 year old male with hematochezia Plan: - CBC, CMP - type and screen - IVF - Protonix - EKG - Reassess and disposition Prior Visits: Notes and results from previous visits were reviewed. Progress Notes: 01/30/19 13:[address] Lassiter. 1 unit pRBCs to be administered as per Dr. Lassiter's recommendations. Patient hemodynamically stable. Labs and imaging reviewed. Case discussed with Dr. Jeff who accepts patient for admission. Patient is in agreement with plan of management. <Laura Sears - Last Filed: 01/30/19 16:32> ED Course and Treatment: 01/30/19 16:32 Patient Seen with Resident: 73 yo male with rectal bleeding with lightheadedness. In agreement with resident note which contains more details about the patient. Patient seen and evaluated with resident. Came up with plan and treatment together. 01/30/19 13:16. Patient was noted to have rectal bleeding. Hgb 8.8 and Plt 22. WBC 14. This was discussed in detail with Dr. Lassiter and Dr. Jeff. Dr. Lassiter recommended transfusing her with 1 unit of Platelets and 1 unit of PRBC. He recommended a procalcitonin level. No antibiotics given at this time. Patient's vitals are stable. Blood pressure controlled. Transfusion started in the ED. She is stable for remote telemetry. - Critical Care Critical Care Minutes: 30 minutes - EKG Interpretation EKG Interpretation (Text): 01/30/19 11:36 Reviewed EKG, shows: Sinus Tachycardia at 109 BPM. Normal Intervals. No ST elevations. Interpreted by ED Physician: Yes Type: 12 lead EKG - Medication Orders Current Medication Orders: Sodium Chloride (Sodium Chloride 0.9%) 500 mls @ 999 mls/hr IV .Q31M STA Stop: 01/30/19 12:11 Discontinued Medications Pantoprazole Sodium (Protonix Inj) 40 mg IVP STAT STA Stop: 01/30/19 11:42 <Terry Nunez - Last Filed: 01/30/19 18:30> - PA / [employer] / Resident Statement /DO has reviewed & agrees with the documentation as recorded. /DO has examined the patient and agrees with the treatment plan. <Terry Nunez - Last Filed: 01/30/19 18:30> Disposition/Present on Arrival - Present on Arrival Any Indicators Present on Arrival: No History of DVT/PE: No History of Uncontrolled Diabetes: No Urinary Catheter: No History Surgical Site Infection Following: None - Disposition Have Diagnosis and Disposition been Completed?: Yes Disposition Time: 13:24 <Laura Sears - Last Filed: 01/30/19 16:32> - Disposition Patient Plan: Admission, Telemetry <Terry Nunez L - Last Filed: 01/30/19 18:30> - Disposition Diagnosis: Anemia, Thrombocytopenia, GI bleed Disposition: HOSPITALIZED Patient Problems: Current Active Problems Problem Status Onset Anemia Acute Thrombocytopenia Acute Condition: GUARDED
[2019-01-30] MEDS ORDERED: Sodium Chloride 0.9% 500 ML IV STA ×2 (11:41→13:26)
[2019-01-30 12:29] LABS: BASO # 0.01 K/mm3 (0.0-2.0); BASO % 0.1 % (0.0-3.0); EOS # 0.2 (0.0-0.7); EOS % 1.2 % (1.5-5.0); HEMOGLOBIN 8.8 g/dL (14.0-18.0); LYMPH # 1.5 (1.2-3.4); LYMPH % 10.2 % (22.0-35.0); MEAN CELL VOLUME 87.3 fl (80.0-105.0); MEAN CORPUSCULAR HEMOGLOBIN 26.6 pg (25.0-35.0); MEAN CORPUSCULAR HGB CONC 30.4 g/dl (31.0-37.0); RBC 3.31 10^6/uL (3.5-6.1); RED CELL DISTRIBUTION WIDTH 20.3 % (11.5-14.5); WHITE BLOOD COUNT 14.6 10^3/uL (4.5-11.0)
[2019-01-30 12:37] LABS: PLATELET COUNT 22 10^3/uL (120.0-450.0)
[2019-01-30 12:44] LABS: ALB/GLOB RATIO 0.7 (1.1-1.8); ALBUMIN 3.2 g/dL (3.0-4.8); ALT/SGPT 15 U/L (7-56); AST/SGOT 24 U/L (17-59); BLOOD UREA NITROGEN 14 mg/dL (7-21); CALCIUM 8.7 mg/dL (8.4-10.5); GFR NON-AFRICAN AMERICAN > 60
[2019-01-30 13:16] LABS: BAND 2 % (0-2); EOSINOPHIL 1 % (0.0-3.0); LYMPHOCYTE 16 % (22.0-35.0); MONOCYTE 29 % (1.0-6.0); MYELOCYTE 2 %; NEUTROPHIL 50 % (50.0-70.0); PLATELET ESTIMATE LOW (NORMAL)
[2019-01-30 13:17] LABS: ANISOCYTOSIS 1+
--- NOTE | 2019-01-30 14:13 | RAD ---
Date of service: 01/30/2019 HISTORY: gi bleed COMPARISON: 01/22/2019 TECHNIQUE: 1 view obtained. FINDINGS: LUNGS: No active pulmonary disease. PLEURA: No significant pleural effusion identified, no pneumothorax apparent. CARDIOVASCULAR: No aortic atherosclerotic calcification present. Normal cardiac size. No pulmonary vascular congestion. OSSEOUS STRUCTURES: No significant abnormalities. VISUALIZED UPPER ABDOMEN: Normal. OTHER FINDINGS: None. IMPRESSION: No active disease.
[2019-01-30] MEDS ORDERED: DiphenhydrAMINE 50 mg/ml Inj IVP ONE (18:00)
[2019-01-30] MEDS: Oxycodone/Acetaminophen 5/325 mg Tab PO PRN ×2 (18:04→23:52)
[2019-01-30 19:42] LABS: PARTIAL THROMBOPLASTIN TIME 35.1 Seconds (26.9-38.3)
[2019-01-30] MEDS ORDERED: Arformoterol 15 mcg/2 ml Inh Sol IH SCH (20:00)
[2019-01-30 20:10] LABS: INR 1.55; PROTHROMBIN TIME 17.2 SECONDS (9.4-12.5)
[2019-01-30] MEDS: Ipratropium 0.02% Inhal Soln (0.5 mg/2.5 ml) UD IH SCH (20:20)
[2019-01-30] MEDS: Budesonide 0.5 mg/2 ml Inhal Susp UD IH SCH (20:20)
[2019-01-30] MEDS: Arformoterol 15 mcg/2 ml Inh Sol IH SCH (20:20)
--- NOTE | 2019-01-30 20:40 | CP.PCM.CON ---
<Mark Thompson - Last Filed: 01/30/19 20:30> History of Present Illness - History of Present Illness History of Present Illness: Mark Thompson D.O. PGY-3, Internal Medicine Resident, Intensive Care Unit Consultation 73-year-old male with a past medical history of anemia, anxiety, and COPD who presented on 01/10 for complaints of weakness and was subsequently found to have AML after bone marrow biopsy who now presents with rectal bleeding. ICU consultation was requested. Patient was seen and examined at bedside. Patient after he was discharged once he was stable after the bone marrow biopsy and states that he was out getting his affairs in order. States that he has continued to feel lethargic since his discharge. He feels very weak and tired. Patient states that first he began to notice a few drops of blood in the toilet bowl and then noticed that he was getting more progressive. Patient became concerned and presented to the emergency room. Patient was also having some lightheadedness. Denies any fevers, chills, nausea, vomiting, headache, dysuria, hematuria or any other concerning signs. 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 Jeff Heme/Onc: Dr. Lassiter GI: Dr. Renner Review of Systems - Review of Systems All systems: reviewed and no additional remarkable complaints except (as per HPI) Past Patient History - Infectious Disease Hx of Infectious Diseases: None - Past Social History Smoking Status: Never Smoked - CARDIAC Hx Cardiac Disorders: No - PULMONARY Hx Chronic Obstructive Pulmonary Disease (COPD): Yes - NEUROLOGICAL Hx Neurological Disorder: No - HEENT Hx HEENT Problems: No - RENAL Hx Chronic Kidney Disease: No - ENDOCRINE/METABOLIC Hx Endocrine Disorders: No - HEMATOLOGICAL/ONCOLOGICAL Hx Blood Disorders: Yes Hx Anemia: Yes - INTEGUMENTARY Hx Dermatological Problems: No - MUSCULOSKELETAL/RHEUMATOLOGICAL Hx Musculoskeletal Disorders: No Hx Falls: No - GASTROINTESTINAL Hx Gastrointestinal Disorders: No - GENITOURINARY/GYNECOLOGICAL Hx Genitourinary Disorders: No - PSYCHIATRIC Hx Psychophysiologic Disorder: No Hx Substance Use: No - SURGICAL HISTORY Hx Abdominal Aortic Aneurysm Repair: Yes - ANESTHESIA Hx Anesthesia: Yes Hx Anesthesia Reactions: No Hx Malignant Hyperthermia: No Meds Allergies/Adverse Reactions: Allergies Allergy/AdvReac Type Severity Reaction Status Date / Time No Known Allergies Allergy Verified 01/30/19 16:37 - Medications Medications: Current Medications Arformoterol Tartrate (Brovana) 15 mcg IH [id number] [facility] Last Admin: 01/30/19 20:20 Dose: Not Given Budesonide (Pulmicort Respules) 1 mg IH [id number] [facility] Last Admin: 01/30/19 20:20 Dose: Not Given Clonazepam (Klonopin) 2 mg PO HS [facility]; Protocol Ferrous Sulfate (Feosol) 324 mg PO DAILY [facility] Gabapentin (Neurontin) 100 mg PO HS [facility]; Protocol Dextrose/Sodium Chloride (Dextrose 5%/0.45% Ns 1000 Ml) 1,000 mls @ 60 mls/hr IV .[id number] [facility] Ipratropium Tilden (Atrovent) 0.5 mg IH TIDRESP [facility] Last Admin: 01/30/19 20:20 Dose: Not Given Mirtazapine (Remeron) 45 mg PO HS [facility] Non-Formulary Medication (Umeclidinium Tilden [Incruse Ellipta]) 1 puff INH DAILY [facility] Oxycodone/Acetaminophen (Percocet 5/325 Mg Tab) 1 tab PO Q6H PRN PRN Reason: Pain, moderate (4-7) Stop: 02/02/19 17:05 Last Admin: 01/30/19 18:04 Dose: 1 tab Pantoprazole Sodium (Protonix Ec Tab) 40 mg PO 0600 [facility] Roflumilast (Daliresp) 500 mcg PO DAILY [facility] Sucralfate (Carafate Oral Susp) 1 gm PO 0600,1600 [facility] Physical Exam - Constitutional Appears: No Acute Distress, Chronically Ill - Head Exam Head Exam: ATRAUMATIC, NORMOCEPHALIC - Eye Exam Eye Exam: EOMI, PERRL. absent: Scleral icterus - ENT Exam ENT Exam: Mucous Membranes Moist, Normal Oropharynx - Neck Exam Neck exam: Positive for: Normal Inspection - Respiratory Exam Respiratory Exam: Clear to Auscultation Bilateral. absent: Rales, Rhonchi, Wheezes - Cardiovascular Exam Cardiovascular Exam: Tachycardia, +S1, +S2. absent: Gallop, Rubs - GI/Abdominal Exam GI & Abdominal Exam: Normal Bowel Sounds, Soft. absent: Distended, Tenderness Additional comments: tympanic to percussion - Rectal Exam Additional comments: dark clot over rectum with active bright red bleeding noted, jose completely soaked with blood - Extremities Exam Extremities exam: Negative for: calf tenderness, pedal edema - Neurological Exam Neurological exam: Alert, CN II-XII Intact, Oriented x3 - Psychiatric Exam Psychiatric exam: Anxious - Skin Skin Exam: Dry, Warm Results - Vital Signs Recent Vital Signs: Last Vital Signs Temp 97.8 F 01/30/19 17:07 Pulse 99 H 01/30/19 18:00 Resp 20 01/30/19 17:07 BP 132/82 01/30/19 17:07 Pulse Ox 95 01/30/19 17:03 - Labs Result Diagrams: 01/30/19 12:10 01/30/19 12:10 Labs: Laboratory Results - last 24 hr 01/30/19 01/30/19 01/30/19 12:10 12:10 12:10 WBC 14.6 H D RBC 3.31 L Hgb 8.8 L Hct 28.9 L MCV 87.3 MCH 26.6 MCHC 30.4 L RDW 20.3 H Plt Count 22 L* Neut % (Auto) 47.5 L Lymph % (Auto) 10.2 L Darke % (Auto) 41.0 H Eos % (Auto) 1.2 L Baso % (Auto) 0.1 Lymph # (Auto) 1.5 Darke # (Auto) 6.0 H Eos # (Auto) 0.2 Baso # (Auto) 0.01 Absolute Neuts (auto) 6.95 H Neutrophils % (Manual) 50 Band Neutrophils % 2 Lymphocytes % (Manual) 16 L Monocytes % (Manual) 29 H Eosinophils % (Manual) 1 Myelocytes % 2 Platelet Evaluation Low Anisocytosis (manual) 1+ PT INR APTT Fibrinogen Fibrin Degrad Products Sodium 134 Potassium 4.2 Chloride 93 L Carbon Dioxide 34 H Anion Gap 12 BUN 14 Creatinine 0.9 Est GFR ( Amer) > 60 Est GFR (Non-Af Amer) > 60 Random Glucose 127 H Calcium 8.7 Magnesium 2.0 Total Bilirubin 0.7 AST 24 ALT 15 Alkaline Phosphatase 86 Total Protein 7.5 Albumin 3.2 Globulin 4.3 Albumin/Globulin Ratio 0.7 L Procalcitonin Blood Type A POSITIVE Antibody Screen Negative Crossmatch See Detail BBK History Checked Patient has bt 01/30/19 01/30/19 01/30/19 13:12 19:28 19:28 WBC RBC Hgb Hct MCV MCH MCHC RDW Plt Count Neut % (Auto) Lymph % (Auto) Darke % (Auto) Eos % (Auto) Baso % (Auto) Lymph # (Auto) Darke # (Auto) Eos # (Auto) Baso # (Auto) Absolute Neuts (auto) Neutrophils % (Manual) Band Neutrophils % Lymphocytes % (Manual) Monocytes % (Manual) Eosinophils % (Manual) Myelocytes % Platelet Evaluation Anisocytosis (manual) PT INR APTT 35.1 Fibrinogen 520 H Fibrin Degrad Products >40 ug/ml Sodium Potassium Chloride Carbon Dioxide Anion Gap BUN Creatinine Est GFR ( Amer) Est GFR (Non-Af Amer) Random Glucose Calcium Magnesium Total Bilirubin AST ALT Alkaline Phosphatase Total Protein Albumin Globulin Albumin/Globulin Ratio Procalcitonin 0.14 L Blood Type Antibody Screen Crossmatch BBK History Checked 01/30/19 20:02 WBC RBC Hgb Hct MCV MCH MCHC RDW Plt Count Neut % (Auto) Lymph % (Auto) Darke % (Auto) Eos % (Auto) Baso % (Auto) Lymph # (Auto) Darke # (Auto) Eos # (Auto) Baso # (Auto) Absolute Neuts (auto) Neutrophils % (Manual) Band Neutrophils % Lymphocytes % (Manual) Monocytes % (Manual) Eosinophils % (Manual) Myelocytes % Platelet Evaluation Anisocytosis (manual) PT 17.2 H INR 1.55 APTT Fibrinogen Fibrin Degrad Products Sodium Potassium Chloride Carbon Dioxide Anion Gap BUN Creatinine Est GFR ( Amer) Est GFR (Non-Af Amer) Random Glucose Calcium Magnesium Total Bilirubin AST ALT Alkaline Phosphatase Total Protein Albumin Globulin Albumin/Globulin Ratio Procalcitonin Blood Type Antibody Screen Crossmatch BBK History Checked Assessment & Plan - Assessment and Plan (Free Text) Assessment: 73-year-old male with a past medical history of anemia, anxiety, and COPD who presented on 01/10 for complaints of weakness and was subsequently found to have AML after bone marrow biopsy who now presents with rectal bleeding. ICU consultation was requested. Plan: Neuro: AAOx4, no issues, will monitor Cardio: Hemodynamically stable No acute issues at this time We will monitor closely in the ICU Pulm: Known COPD Satting well on room air Continue home medications GI: Having active rectal bleeding at this time likely secondary to thrombocytopenia and or platelet dysfunction GI consulted Pending bleeding scan Received 1 unit packed red blood cell To receive 1 unit of platelets We will repeat a CBC right now Repeat CBC tomorrow at 0100 Nephro/: No issues at this time BUN and creatinine within normal range We will monitor urinary output Okay to continue with D5 half-normal saline as per Dr. Lassiter ID: SIRS 2/4 with tachycardia and leukocytosis No active source identified possibly related to rectal bleeding and AML We will obtain blood cultures No antibiotics at this time We will monitor closely Heme/Onc: Heme/Onc Dr. 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 Thank you for the pleasure of participating in the care of this patient. - Date & Time Date: 01/30/19 Time: 19:45 <Brian Cruz - Last Filed: 01/31/19 07:20> Meds - Medications Medications: Current Medications Arformoterol Tartrate (Brovana) 15 mcg IH [id number] [facility] Last Admin: 01/30/19 20:20 Dose: Not Given Budesonide (Pulmicort Respules) 1 mg IH [id number] [facility] Last Admin: 01/30/19 20:20 Dose: Not Given Clonazepam (Klonopin) 2 mg PO HS [facility]; Protocol Last Admin: 01/30/19 23:51 Dose: 2 mg Ferrous Sulfate (Feosol) 324 mg PO DAILY [facility] Gabapentin (Neurontin) 100 mg PO HS [facility]; Protocol Last Admin: 01/30/19 23:51 Dose: 100 mg Dextrose/Sodium Chloride (Dextrose 5%/0.45% Ns 1000 Ml) 1,000 mls @ 60 mls/hr IV .[id number] [facility] Ipratropium Tilden (Atrovent) 0.5 mg IH TIDRESP [facility] Last Admin: 01/30/19 20:20 Dose: Not Given Mirtazapine (Remeron) 45 mg PO HS [facility] Last Admin: 01/30/19 23:53 Dose: 45 mg Non-Formulary Medication (Umeclidinium Tilden [Incruse Ellipta]) 1 puff INH DAILY [facility] Oxycodone/Acetaminophen (Percocet 5/325 Mg Tab) 1 tab PO Q6H PRN PRN Reason: Pain, moderate (4-7) Stop: 02/02/19 17:05 Last Admin: 01/30/19 23:52 Dose: 1 tab Pantoprazole Sodium (Protonix Ec Tab) 40 mg PO 0600 [facility] Last Admin: 01/31/19 05:51 Dose: 40 mg Roflumilast (Daliresp) 500 mcg PO DAILY [facility] Sucralfate (Carafate Oral Susp) 1 gm PO 0600,1600 [facility] Last Admin: 01/31/19 05:52 Dose: 1 gm Results - Vital Signs Recent Vital Signs: Last Vital Signs Temp 98.7 F 01/31/19 03:04 Pulse 92 H 01/31/19 03:04 Resp 22 01/31/19 03:04 BP 112/73 01/31/19 03:04 Pulse Ox 93 L 01/31/19 03:04 - Labs Result Diagrams: 01/31/19 06:40 01/31/19 06:40 Labs: Laboratory Results - last 24 hr 01/30/19 01/30/19 01/30/19 12:10 12:10 12:10 WBC 14.6 H D RBC 3.31 L Hgb 8.8 L Hct 28.9 L MCV 87.3 MCH 26.6 MCHC 30.4 L RDW 20.3 H Plt Count 22 L* MPV Neut % (Auto) 47.5 L Lymph % (Auto) 10.2 L Darke % (Auto) 41.0 H Eos % (Auto) 1.2 L Baso % (Auto) 0.1 Lymph # (Auto) 1.5 Darke # (Auto) 6.0 H Eos # (Auto) 0.2 Baso # (Auto) 0.01 Absolute Neuts (auto) 6.95 H Neutrophils % (Manual) 50 Band Neutrophils % 2 Lymphocytes % (Manual) 16 L Monocytes % (Manual) 29 H Eosinophils % (Manual) 1 Myelocytes % 2 Platelet Evaluation Low Anisocytosis (manual) 1+ PT INR APTT Fibrinogen Fibrin Degrad Products Sodium 134 Potassium 4.2 Chloride 93 L Carbon Dioxide 34 H Anion Gap 12 BUN 14 Creatinine 0.9 Est GFR ( Amer) > 60 Est GFR (Non-Af Amer) > 60 Random Glucose 127 H Calcium 8.7 Phosphorus Magnesium 2.0 Total Bilirubin 0.7 AST 24 ALT 15 Alkaline Phosphatase 86 Total Protein 7.5 Albumin 3.2 Globulin 4.3 Albumin/Globulin Ratio 0.7 L Procalcitonin Blood Type A POSITIVE Antibody Screen Negative Crossmatch See Detail BBK History Checked Patient has bt 01/30/19 01/30/19 01/30/19 13:12 19:28 19:28 WBC RBC Hgb Hct MCV MCH MCHC RDW Plt Count MPV Neut % (Auto) Lymph % (Auto) Darke % (Auto) Eos % (Auto) Baso % (Auto) Lymph # (Auto) Darke # (Auto) Eos # (Auto) Baso # (Auto) Absolute Neuts (auto) Neutrophils % (Manual) Band Neutrophils % Lymphocytes % (Manual) Monocytes % (Manual) Eosinophils % (Manual) Myelocytes % Platelet Evaluation Anisocytosis (manual) PT INR APTT 35.1 Fibrinogen 520 H Fibrin Degrad Products >40 ug/ml Sodium Potassium Chloride Carbon Dioxide Anion Gap BUN Creatinine Est GFR ( Amer) Est GFR (Non-Af Amer) Random Glucose Calcium Phosphorus Magnesium Total Bilirubin AST ALT Alkaline Phosphatase Total Protein Albumin Globulin Albumin/Globulin Ratio Procalcitonin 0.14 L Blood Type Antibody Screen Crossmatch BBK History Checked 01/30/19 01/30/19 01/31/19 20:02 22:48 06:40 WBC 14.5 H 17.9 H D RBC 3.21 L 3.02 L Hgb 8.8 L 8.1 L Hct 27.9 L 25.9 L MCV 86.9 85.8 MCH 27.4 26.8 MCHC 31.5 31.3 RDW 19.2 H 19.3 H Plt Count 15 L* 52 L MPV 9.5 Neut % (Auto) 63.6 49.0 L Lymph % (Auto) 6.7 L 7.8 L Darke % (Auto) 28.2 H 42.4 H Eos % (Auto) 1.4 L 0.7 L Baso % (Auto) 0.1 0.1 Lymph # (Auto) 1.0 L 1.4 Darke # (Auto) 4.1 H 7.6 H Eos # (Auto) 0.2 0.1 Baso # (Auto) 0.01 0.01 Absolute Neuts (auto) 9.25 H 8.78 H Neutrophils % (Manual) Band Neutrophils % Lymphocytes % (Manual) Monocytes % (Manual) Eosinophils % (Manual) Myelocytes % Platelet Evaluation Anisocytosis (manual) PT 17.2 H INR 1.55 APTT Fibrinogen Fibrin Degrad Products Sodium Potassium Chloride Carbon Dioxide Anion Gap BUN Creatinine Est GFR ( Amer) Est GFR (Non-Af Amer) Random Glucose Calcium Phosphorus Magnesium Total Bilirubin AST ALT Alkaline Phosphatase Total Protein Albumin Globulin Albumin/Globulin Ratio Procalcitonin Blood Type Antibody Screen Crossmatch BBK History Checked 01/31/19 06:40 WBC RBC Hgb Hct MCV MCH MCHC RDW Plt Count MPV Neut % (Auto) Lymph % (Auto) Darke % (Auto) Eos % (Auto) Baso % (Auto) Lymph # (Auto) Darke # (Auto) Eos # (Auto) Baso # (Auto) Absolute Neuts (auto) Neutrophils % (Manual) Band Neutrophils % Lymphocytes % (Manual) Monocytes % (Manual) Eosinophils % (Manual) Myelocytes % Platelet Evaluation Anisocytosis (manual) PT INR APTT Fibrinogen Fibrin Degrad Products Sodium 134 Potassium 4.1 Chloride 98 Carbon Dioxide 29 Anion Gap 11 BUN 15 Creatinine 0.8 Est GFR ( Amer) > 60 Est GFR (Non-Af Amer) > 60 Random Glucose 135 H Calcium 8.1 L Phosphorus 3.6 Magnesium 2.0 Total Bilirubin 0.6 AST 22 ALT 14 Alkaline Phosphatase 69 Total Protein 6.7 Albumin 3.0 Globulin 3.8 Albumin/Globulin Ratio 0.8 L Procalcitonin Blood Type Antibody Screen Crossmatch BBK History Checked Attending/Attestation - Attestation I have personally seen and examined this patient.: Yes I have fully participated in the care of the patient.: Yes I have reviewed all pertinent clinical information: Yes Notes (Text): 01/31/19 07:20 Seen and examined. Discussed with resident. Exam significant for rectal bleeding and very pale. A&P as above. obtain SX consult. F/U bleeding scan.
[2019-01-30 22:58] LABS: BASO # 0.01 K/mm3 (0.0-2.0); BASO % 0.1 % (0.0-3.0); EOS # 0.2 (0.0-0.7); EOS % 1.4 % (1.5-5.0); HEMOGLOBIN 8.8 g/dL (14.0-18.0); LYMPH % 6.7 % (22.0-35.0); MEAN CELL VOLUME 86.9 fl (80.0-105.0); MEAN CORPUSCULAR HEMOGLOBIN 27.4 pg (25.0-35.0); MEAN CORPUSCULAR HGB CONC 31.5 g/dl (31.0-37.0); MONO # 4.1 (0.1-0.6); MONO % 28.2 % (1.0-6.0); RBC 3.21 10^6/uL (3.5-6.1); RED CELL DISTRIBUTION WIDTH 19.2 % (11.5-14.5); WHITE BLOOD COUNT 14.5 10^3/uL (4.5-11.0)
[2019-01-30 23:02] LABS: PLATELET COUNT 15 10^3/uL (120.0-450.0)
[2019-01-31] MEDS ORDERED: Pneumococcal 23-Valent Vaccine IM ONE (00:28)
--- NOTE | 2019-01-31 02:04 | HP ---
DATE OF EXAM: 01/30/2019 HISTORY OF PRESENT ILLNESS: A 73-year-old white male with COPD, recently diagnosed with acute myelomonocytic leukemia, thrombocytopenia and rectal bleeding. The patient was in his usual self until yesterday, when he noticed some bright red blood per rectum after removing his bowels. The patient this morning was getting ready to see Dr. Lassiter in the office when he developed a little bit of constipation followed by a bowel movement with further bleeding and acute bleeding per rectum, which is bright red. The patient denies any nausea, vomiting or other bleeding. The patient does have history of COPD and denies any cough, sputum production or shortness of breath. REVIEW OF SYSTEMS: Cardiac: Negative for chest pain, palpitations or dyspnea. Neurological: Negative for nausea, vomiting or dizziness. Negative for any weakness in the arms or legs or syncope. Gastrointestinal: Positive for bright red blood per rectum and mild constipation. PHYSICAL EXAMINATION GENERAL: Shows a well-developed, but thin white male in a weakened state and on the floor, but being evaluated for transfer to ICU because of acute large rectal bleeding. The patient has bright red blood per rectum. CHEST: Clear to auscultation and percussion. HEART: Regular sinus rhythm. No rubs or murmurs. ABDOMEN: Soft, bowel sounds are normoactive. There is no masses palpable. NEUROLOGICAL: Grossly intact. EXTREMITIES: Without cyanosis, clubbing or edema. IMPRESSION: Thrombocytopenia, acute myelomonocytic leukemia, acute lower gastrointestinal rectal bleeding and anemia of blood loss. Martinez Jeff MD
--- NOTE | 2019-01-31 02:17 | CP.PCM.CON ---
History of Present Illness - History of Present Illness History of Present Illness: General Surgery Consult Note for Dr. Mirza This is a 73M with a PMH of COPD, and Anemia with a recent diagnosis of AML for which he was supposed to have his first appointment with Dr. Rivero today however he went to the bathroom and had a bloody bowel movement and he reports bright red blood dripping on the floor from his anus. He reports this is ambika first time this has happened he denies any pain. His only complaint is weakness and and confusion. He reports multiple endoscopies and colonoscopies in the past however aside from polypectomies he reports they were benign. He denies any fevers chills chest pain SOB nause vomiting. PMH: COPD, Anemia, AML PSH: EVAR Social: Denies vices FH: Denies ALL: NKDA Review of Systems - Constitutional Constitutional: Fatigue, Weakness. absent: Anorexia, Chills - EENT Eyes: absent: Blurred Vision, Change in Vision Ears: Dizziness - Cardiovascular Cardiovascular: absent: Chest Pain, Dyspnea - Respiratory Respiratory: absent: Cough, Dyspnea - Gastrointestinal Gastrointestinal: Hematochezia. absent: Belching, Bloating, Nausea - Genitourinary Genitourinary: absent: Difficulty Urinating, Dysuria Past Patient History - Infectious Disease Hx of Infectious Diseases: None - Past Social History Smoking Status: Former Smoker - CARDIAC Hx Cardiac Disorders: Yes (AAA) - PULMONARY Hx Respiratory Disorders: Yes (USED TO SMOKE CIGARETTES SOCIALLY .QUIT.) Hx Chronic Obstructive Pulmonary Disease (COPD): Yes - NEUROLOGICAL Hx Neurological Disorder: Yes Hx Dizziness: Yes - HEENT Hx HEENT Problems: No - RENAL Hx Chronic Kidney Disease: No - ENDOCRINE/METABOLIC Hx Endocrine Disorders: No - HEMATOLOGICAL/ONCOLOGICAL Hx Blood Disorders: Yes (THROMBOCYTOPENIA) Hx Anemia: Yes (BLOOD TRANSFUSION) - INTEGUMENTARY Hx Dermatological Problems: No - MUSCULOSKELETAL/RHEUMATOLOGICAL Hx Musculoskeletal Disorders: No Hx Falls: No Hx Unsteady Gait: Yes (WALKER,CANE) - GASTROINTESTINAL Hx Gastrointestinal Disorders: Yes Hx Gastroesophageal Reflux: Yes - GENITOURINARY/GYNECOLOGICAL Hx Genitourinary Disorders: No - PSYCHIATRIC Hx Psychophysiologic Disorder: No Hx Substance Use: No - SURGICAL HISTORY Hx Surgeries: Yes (Aortic aneursym repair) - ANESTHESIA Hx Anesthesia: Yes Hx Anesthesia Reactions: No Hx Malignant Hyperthermia: No Meds Allergies/Adverse Reactions: Allergies Allergy/AdvReac Type Severity Reaction Status Date / Time No Known Allergies Allergy Verified 01/30/19 16:37 - Medications Medications: Current Medications Arformoterol Tartrate (Brovana) 15 mcg IH [id number] [facility] Last Admin: 01/30/19 20:20 Dose: Not Given Budesonide (Pulmicort Respules) 1 mg IH [id number] [facility] Last Admin: 01/30/19 20:20 Dose: Not Given Clonazepam (Klonopin) 2 mg PO HS [facility]; Protocol Last Admin: 01/30/19 23:51 Dose: 2 mg Ferrous Sulfate (Feosol) 324 mg PO DAILY [facility] Gabapentin (Neurontin) 100 mg PO HS [facility]; Protocol Last Admin: 01/30/19 23:51 Dose: 100 mg Dextrose/Sodium Chloride (Dextrose 5%/0.45% Ns 1000 Ml) 1,000 mls @ 60 mls/hr IV .[id number] [facility] Ipratropium [place] (Atrovent) 0.5 mg IH TIDRESP [facility] Last Admin: 01/30/19 20:20 Dose: Not Given Mirtazapine (Remeron) 45 mg PO [facility] Last Admin: 01/30/19 23:53 Dose: 45 mg Non-Formulary Medication (Umeclidinium [place] [Incruse Ellipta]) 1 puff INH DAILY [facility] Oxycodone/Acetaminophen (Percocet 5/325 Mg Tab) 1 tab PO Q6H PRN PRN Reason: Pain, moderate (4-7) Stop: 02/02/19 17:05 Last Admin: 01/30/19 23:52 Dose: 1 tab Pantoprazole Sodium (Protonix Ec Tab) 40 mg PO 0600 [facility] Roflumilast (Daliresp) 500 mcg PO DAILY [facility] Sucralfate (Carafate Oral Susp) 1 gm PO 0600,1600 [facility] Physical Exam - Constitutional Appears: Non-toxic, No Acute Distress - Head Exam Head Exam: ATRAUMATIC, NORMOCEPHALIC - Eye Exam Eye Exam: EOMI - ENT Exam ENT Exam: Mucous Membranes Moist - Respiratory Exam Respiratory Exam: NORMAL BREATHING PATTERN - Cardiovascular Exam Cardiovascular Exam: +S1, +S2 - GI/Abdominal Exam GI & Abdominal Exam: Soft. absent: Distended, Firm, Guarding, Hernia, Rigid, Tenderness - Rectal Exam Additional comments: Large clot removed from anal opening, nonbleeding prominent hemorrhoidal columns, no palpable rectal masses, no tenderness, bright red blood on glove - Neurological Exam Neurological exam: Alert, Oriented x3 - Psychiatric Exam Psychiatric exam: Normal Affect, Normal Mood - Skin Skin Exam: Dry, Intact Results - Vital Signs Recent Vital Signs: Last Vital Signs Temp 97.8 F 01/30/19 17:07 Pulse 100 H 01/31/19 00:08 Resp 18 01/31/19 00:08 BP 132/82 01/30/19 17:07 Pulse Ox 95 01/30/19 17:03 - Labs Result Diagrams: 01/30/19 22:48 01/30/19 12:10 Labs: Laboratory Results - last 24 hr 01/30/19 01/30/19 01/30/19 12:10 12:10 12:10 WBC 14.6 H D RBC 3.31 L Hgb 8.8 L Hct 28.9 L MCV 87.3 MCH 26.6 MCHC 30.4 L RDW 20.3 H Plt Count 22 L* Neut % (Auto) 47.5 L Lymph % (Auto) 10.2 L Mcmullen % (Auto) 41.0 H Eos % (Auto) 1.2 L Baso % (Auto) 0.1 Lymph # (Auto) 1.5 Mcmullen # (Auto) 6.0 H Eos # (Auto) 0.2 Baso # (Auto) 0.01 Absolute Neuts (auto) 6.95 H Neutrophils % (Manual) 50 Band Neutrophils % 2 Lymphocytes % (Manual) 16 L Monocytes % (Manual) 29 H Eosinophils % (Manual) 1 Myelocytes % 2 Platelet Evaluation Low Anisocytosis (manual) 1+ PT INR APTT Fibrinogen Fibrin Degrad Products Sodium 134 Potassium 4.2 Chloride 93 L Carbon Dioxide 34 H Anion Gap 12 BUN 14 Creatinine 0.9 Est GFR ( Amer) > 60 Est GFR (Non-Af Amer) > 60 Random Glucose 127 H Calcium 8.7 Magnesium 2.0 Total Bilirubin 0.7 AST 24 ALT 15 Alkaline Phosphatase 86 Total Protein 7.5 Albumin 3.2 Globulin 4.3 Albumin/Globulin Ratio 0.7 L Procalcitonin Blood Type A POSITIVE Antibody Screen Negative Crossmatch See Detail BBK History Checked Patient has bt 01/30/19 01/30/19 01/30/19 13:12 19:28 19:28 WBC RBC Hgb Hct MCV MCH MCHC RDW Plt Count Neut % (Auto) Lymph % (Auto) Mcmullen % (Auto) Eos % (Auto) Baso % (Auto) Lymph # (Auto) Mcmullen # (Auto) Eos # (Auto) Baso # (Auto) Absolute Neuts (auto) Neutrophils % (Manual) Band Neutrophils % Lymphocytes % (Manual) Monocytes % (Manual) Eosinophils % (Manual) Myelocytes % Platelet Evaluation Anisocytosis (manual) PT INR APTT 35.1 Fibrinogen 520 H Fibrin Degrad Products >40 ug/ml Sodium Potassium Chloride Carbon Dioxide Anion Gap BUN Creatinine Est GFR ( Amer) Est GFR (Non-Af Amer) Random Glucose Calcium Magnesium Total Bilirubin AST ALT Alkaline Phosphatase Total Protein Albumin Globulin Albumin/Globulin Ratio Procalcitonin 0.14 L Blood Type Antibody Screen Crossmatch BBK History Checked 01/30/19 01/30/19 20:02 22:48 WBC 14.5 H RBC 3.21 L Hgb 8.8 L Hct 27.9 L MCV 86.9 MCH 27.4 MCHC 31.5 RDW 19.2 H Plt Count 15 L* Neut % (Auto) 63.6 Lymph % (Auto) 6.7 L Mcmullen % (Auto) 28.2 H Eos % (Auto) 1.4 L Baso % (Auto) 0.1 Lymph # (Auto) 1.0 L Mcmullen # (Auto) 4.1 H Eos # (Auto) 0.2 Baso # (Auto) 0.01 Absolute Neuts (auto) 9.25 H Neutrophils % (Manual) Band Neutrophils % Lymphocytes % (Manual) Monocytes % (Manual) Eosinophils % (Manual) Myelocytes % Platelet Evaluation Anisocytosis (manual) PT 17.2 H INR 1.55 APTT Fibrinogen Fibrin Degrad Products Sodium Potassium Chloride Carbon Dioxide Anion Gap BUN Creatinine Est GFR ( Amer) Est GFR (Non-Af Amer) Random Glucose Calcium Magnesium Total Bilirubin AST ALT Alkaline Phosphatase Total Protein Albumin Globulin Albumin/Globulin Ratio Procalcitonin Blood Type Antibody Screen Crossmatch BBK History Checked Assessment & Plan - Assessment and Plan (Free Text) Assessment: This is a 73M with chronic Anemia, COPD and AML who presents with GI bleed Platlets 22->15 (Currently transfusing) Hgb 8.8 -->8.8 after 1prbc (baseline 9) GI Consulted Recommend serial H/H until stable without blood requirements Will Followup GI Followup report for bleeding scan Recommend NPO Will continue to monitor, no surgical plan as of yet due to no localized source of bleeding and and platelet count of [address] Mirza
[2019-01-31] MEDS: Pantoprazole 40 mg EC Tab PO SCH (05:51)
[2019-01-31] MEDS: Sucralfate 1 gm/10 ml Oral Susp UD PO SCH ×2 (05:52→16:59)
[2019-01-31 06:48] LABS: BASO # 0.01 K/mm3 (0.0-2.0); BASO % 0.1 % (0.0-3.0); EOS # 0.1 (0.0-0.7); EOS % 0.7 % (1.5-5.0); HEMOGLOBIN 8.1 g/dL (14.0-18.0); LYMPH # 1.4 (1.2-3.4); LYMPH % 7.8 % (22.0-35.0); MEAN CELL VOLUME 85.8 fl (80.0-105.0); MEAN CORPUSCULAR HEMOGLOBIN 26.8 pg (25.0-35.0); MEAN CORPUSCULAR HGB CONC 31.3 g/dl (31.0-37.0); MEAN PLATELET VOLUME 9.5 fl (7.0-11.0); MONO # 7.6 (0.1-0.6); MONO % 42.4 % (1.0-6.0); RBC 3.02 10^6/uL (3.5-6.1); RED CELL DISTRIBUTION WIDTH 19.3 % (11.5-14.5); WHITE BLOOD COUNT 17.9 10^3/uL (4.5-11.0)
[2019-01-31 07:10] LABS: ALB/GLOB RATIO 0.8 (1.1-1.8); ALT/SGPT 14 U/L (7-56); AST/SGOT 22 U/L (17-59); BLOOD UREA NITROGEN 15 mg/dL (7-21); CALCIUM 8.1 mg/dL (8.4-10.5); GFR NON-AFRICAN AMERICAN > 60
--- NOTE | 2019-01-31 07:22 | CP.CCUPN ---
<Star Barclay - Last Filed: 01/31/19 11:14> CCU Subjective - Physician Review Events Since Last Encounter (Free Text): 01/31/19 07:18 no acute events overnight Subjective (Free Text): 01/31/19 07:21 Pt seen and examined this morning, pt has no new complaints at this time CCU Objective - Vital Signs / Intake & Output Intake and Output (Last 8hrs): Intake & Output 01/30/19 01/31/19 01/31/19 22:59 06:59 14:59 Intake Total 325 Balance 325 Weight 122 lb Intake: Blood Product 325 Red Blood Cells Cpd As1 325 Lr Unit [id number] Other: Voiding Method Urinal - Physical Exam Head: Positive for: Atraumatic, Normocephalic Pupils: Positive for: PERRL Extroacular Muscles: Positive for: EOMI Conjunctiva: Positive for: Other (pale) Mouth: Positive for: Moist Mucous Membranes Respiratory/Chest: Positive for: Clear to Auscultation, Good Air Exchange. Negative for: Respiratory Distress, Accessory Muscle Use Cardiovascular: Positive for: Regular Rate and Rhythm, Normal S1, S2, Tachycardic Abdomen: Positive for: Normal Bowel Sounds. Negative for: Tenderness, Distention, Peritoneal Signs, Rebound, Guarding Rectal: Positive for: Gross Blood Lower Extremity: Positive for: Normal Inspection Skin: Positive for: Warm, Dry, Normal Color Psychiatric: Positive for: Alert, Oriented x 3 - Medications Active Medications: Active Medications Generic Name Dose Route Start Last Admin Trade Name Freq PRN Reason Stop Dose Admin Arformoterol Tartrate 15 mcg 01/30/19 20:00 01/30/19 20:20 Brovana IH Not Given [id number] [place] Budesonide 1 mg 01/30/19 20:00 01/30/19 20:20 Pulmicort Respules IH Not Given [id number] [place] Clonazepam 2 mg 01/30/19 22:00 01/30/19 23:51 Klonopin PO 2 mg HS SHA[place] Administration Protocol Ferrous Sulfate 324 mg 01/31/19 10:00 Feosol PO DAILY [place] Gabapentin 100 mg 01/30/19 22:00 01/30/19 23:51 Neurontin PO 100 mg HS [place] Administration Protocol Dextrose/Sodium Chloride 1,000 mls @ 60 mls/hr 01/30/19 19:00 Dextrose 5%/0.45% Ns 1000 Ml IV .[id number] [place] Ipratropium [place] 0.5 mg 01/30/19 20:00 01/30/19 20:20 Atrovent IH Not Given TIDRESP [facility] Mirtazapine 45 mg 01/30/19 22:00 01/30/19 23:53 Remeron PO 45 mg HS [place] Administration Non-Formulary Medication 1 puff 01/31/19 10:00 Umeclidinium [place] [Incruse Ellipta] INH DAILY [place] Oxycodone/Acetaminophen 1 tab 01/30/19 17:04 01/30/19 23:52 Percocet 5/325 Mg Tab PO 02/02/19 17:05 1 tab Q6H PRN Administration Pain, moderate (4-7) Pantoprazole Sodium 40 mg 01/31/19 06:00 01/31/19 05:51 Protonix Ec Tab PO 40 mg 0600 [place] Administration Roflumilast 500 mcg 01/31/19 10:00 Daliresp PO DAILY [facility] Sucralfate 1 gm 01/31/19 06:00 01/31/19 05:52 Carafate Oral Susp PO 1 gm 0600,1600 [place] Administration - Patient Studies Lab Studies: Lab Studies 01/31/19 01/31/19 01/30/19 Range/Units 06:40 06:40 22:48 WBC 17.9 H D 14.5 H (4.5-11.0) 10^3/uL RBC 3.02 L 3.21 L (3.5-6.1) 10^6/uL Hgb 8.1 L 8.8 L (14.0-18.0) g/dL Hct 25.9 L 27.9 L (42.0-52.0) % MCV 85.8 86.9 (80.0-105.0) fl MCH 26.8 27.4 (25.0-35.0) pg MCHC 31.3 31.5 (31.0-37.0) g/dl RDW 19.3 H 19.2 H (11.5-14.5) % Plt Count 52 L 15 L* (120.0-450.0) 10^3/uL MPV 9.5 (7.0-11.0) fl Neut % (Auto) 49.0 L 63.6 (50.0-68.0) % Lymph % (Auto) 7.8 L 6.7 L (22.0-35.0) % Lawrence % (Auto) 42.4 H 28.2 H (1.0-6.0) % Eos % (Auto) 0.7 L 1.4 L (1.5-5.0) % Baso % (Auto) 0.1 0.1 (0.0-3.0) % Lymph # (Auto) 1.4 1.0 L (1.2-3.4) Lawrence # (Auto) 7.6 H 4.1 H (0.1-0.6) Eos # (Auto) 0.1 0.2 (0.0-0.7) Baso # (Auto) 0.01 0.01 (0.0-2.0) K/mm3 Absolute Neuts (auto) 8.78 H 9.25 H (1.4-6.5) Neutrophils % (Manual) (50.0-70.0) % Band Neutrophils % (0-2) % Lymphocytes % (Manual) (22.0-35.0) % Monocytes % (Manual) (1.0-6.0) % Eosinophils % (Manual) (0.0-3.0) % Myelocytes % % Platelet Evaluation (NORMAL) Anisocytosis (manual) PT (9.4-12.5) SECONDS INR APTT (26.9-38.3) Seconds Fibrinogen (200-400) mg/dl Fibrin Degrad Products (< 10 ug/mL) Sodium 134 (132-148) mmol/L Potassium 4.1 (3.6-5.0) mmol/L Chloride 98 (98-107) mmol/L Carbon Dioxide 29 (21-33) mmol/L Anion Gap 11 (10-20) BUN 15 (7-21) mg/dL Creatinine 0.8 (0.8-1.5) mg/dl Est GFR ( Amer) > 60 Est GFR (Non-Af Amer) > 60 Random Glucose 135 H (70-110) mg/dL Calcium 8.1 L (8.4-10.5) mg/dL Phosphorus 3.6 (2.5-4.5) mg/dL Magnesium 2.0 (1.7-2.2) mg/dL Total Bilirubin 0.6 (0.2-1.3) mg/dL AST 22 (17-59) U/L ALT 14 (7-56) U/L Alkaline Phosphatase 69 (38-126) U/L Total Protein 6.7 (5.8-8.3) g/dL Albumin 3.0 (3.0-4.8) g/dL Globulin 3.8 gm/dL Albumin/Globulin Ratio 0.8 L (1.1-1.8) Procalcitonin (0.19-0.49) NG/ML Blood Type Antibody Screen Crossmatch BBK History Checked 01/30/19 01/30/19 01/30/19 Range/Units 20:02 19:28 19:28 WBC (4.5-11.0) 10^3/uL RBC (3.5-6.1) 10^6/uL Hgb (14.0-18.0) g/dL Hct (42.0-52.0) % MCV (80.0-105.0) fl MCH (25.0-35.0) pg MCHC (31.0-37.0) g/dl RDW (11.5-14.5) % Plt Count (120.0-450.0) 10^3/uL MPV (7.0-11.0) fl Neut % (Auto) (50.0-68.0) % Lymph % (Auto) (22.0-35.0) % Lawrence % (Auto) (1.0-6.0) % Eos % (Auto) (1.5-5.0) % Baso % (Auto) (0.0-3.0) % Lymph # (Auto) (1.2-3.4) Lawrence # (Auto) (0.1-0.6) Eos # (Auto) (0.0-0.7) Baso # (Auto) (0.0-2.0) K/mm3 Absolute Neuts (auto) (1.4-6.5) Neutrophils % (Manual) (50.0-70.0) % Band Neutrophils % (0-2) % Lymphocytes % (Manual) (22.0-35.0) % Monocytes % (Manual) (1.0-6.0) % Eosinophils % (Manual) (0.0-3.0) % Myelocytes % % Platelet Evaluation (NORMAL) Anisocytosis (manual) PT 17.2 H (9.4-12.5) SECONDS INR 1.55 APTT 35.1 (26.9-38.3) Seconds Fibrinogen 520 H (200-400) mg/dl Fibrin Degrad Products >40 ug/ml (< 10 ug/mL) Sodium (132-148) mmol/L Potassium (3.6-5.0) mmol/L Chloride (98-107) mmol/L Carbon Dioxide (21-33) mmol/L Anion Gap (10-20) BUN (7-21) mg/dL Creatinine (0.8-1.5) mg/dl Est GFR ( Amer) Est GFR (Non-Af Amer) Random Glucose (70-110) mg/dL Calcium (8.4-10.5) mg/dL Phosphorus (2.5-4.5) mg/dL Magnesium (1.7-2.2) mg/dL Total Bilirubin (0.2-1.3) mg/dL AST (17-59) U/L ALT (7-56) U/L Alkaline Phosphatase (38-126) U/L Total Protein (5.8-8.3) g/dL Albumin (3.0-4.8) g/dL Globulin gm/dL Albumin/Globulin Ratio (1.1-1.8) Procalcitonin (0.19-0.49) NG/ML Blood Type Antibody Screen Crossmatch BBK History Checked 01/30/19 01/30/19 01/30/19 Range/Units 13:12 12:10 12:10 WBC 14.6 H D (4.5-11.0) 10^3/uL RBC 3.31 L (3.5-6.1) 10^6/uL Hgb 8.8 L (14.0-18.0) g/dL Hct 28.9 L (42.0-52.0) % MCV 87.3 (80.0-105.0) fl MCH 26.6 (25.0-35.0) pg MCHC 30.4 L (31.0-37.0) g/dl RDW 20.3 H (11.5-14.5) % Plt Count 22 L* (120.0-450.0) 10^3/uL MPV (7.0-11.0) fl Neut % (Auto) 47.5 L (50.0-68.0) % Lymph % (Auto) 10.2 L (22.0-35.0) % Lawrence % (Auto) 41.0 H (1.0-6.0) % Eos % (Auto) 1.2 L (1.5-5.0) % Baso % (Auto) 0.1 (0.0-3.0) % Lymph # (Auto) 1.5 (1.2-3.4) Lawrence # (Auto) 6.0 H (0.1-0.6) Eos # (Auto) 0.2 (0.0-0.7) Baso # (Auto) 0.01 (0.0-2.0) K/mm3 Absolute Neuts (auto) 6.95 H (1.4-6.5) Neutrophils % (Manual) 50 (50.0-70.0) % Band Neutrophils % 2 (0-2) % Lymphocytes % (Manual) 16 L (22.0-35.0) % Monocytes % (Manual) 29 H (1.0-6.0) % Eosinophils % (Manual) 1 (0.0-3.0) % Myelocytes % 2 % Platelet Evaluation Low (NORMAL) Anisocytosis (manual) 1+ PT (9.4-12.5) SECONDS INR APTT (26.9-38.3) Seconds Fibrinogen (200-400) mg/dl Fibrin Degrad Products (< 10 ug/mL) Sodium (132-148) mmol/L Potassium (3.6-5.0) mmol/L Chloride (98-107) mmol/L Carbon Dioxide (21-33) mmol/L Anion Gap (10-20) BUN (7-21) mg/dL Creatinine (0.8-1.5) mg/dl Est GFR ( Amer) Est GFR (Non-Af Amer) Random Glucose (70-110) mg/dL Calcium (8.4-10.5) mg/dL Phosphorus (2.5-4.5) mg/dL Magnesium (1.7-2.2) mg/dL Total Bilirubin (0.2-1.3) mg/dL AST (17-59) U/L ALT (7-56) U/L Alkaline Phosphatase (38-126) U/L Total Protein (5.8-8.3) g/dL Albumin (3.0-4.8) g/dL Globulin gm/dL Albumin/Globulin Ratio (1.1-1.8) Procalcitonin 0.14 L (0.19-0.49) NG/ML Blood Type A POSITIVE Antibody Screen Negative Crossmatch See Detail BBK History Checked Patient has bt 01/30/19 Range/Units 12:10 WBC (4.5-11.0) 10^3/uL RBC (3.5-6.1) 10^6/uL Hgb (14.0-18.0) g/dL Hct (42.0-52.0) % MCV (80.0-105.0) fl MCH (25.0-35.0) pg MCHC (31.0-37.0) g/dl RDW (11.5-14.5) % Plt Count (120.0-450.0) 10^3/uL MPV (7.0-11.0) fl Neut % (Auto) (50.0-68.0) % Lymph % (Auto) (22.0-35.0) % Lawrence % (Auto) (1.0-6.0) % Eos % (Auto) (1.5-5.0) % Baso % (Auto) (0.0-3.0) % Lymph # (Auto) (1.2-3.4) Lawrence # (Auto) (0.1-0.6) Eos # (Auto) (0.0-0.7) Baso # (Auto) (0.0-2.0) K/mm3 Absolute Neuts (auto) (1.4-6.5) Neutrophils % (Manual) (50.0-70.0) % Band Neutrophils % (0-2) % Lymphocytes % (Manual) (22.0-35.0) % Monocytes % (Manual) (1.0-6.0) % Eosinophils % (Manual) (0.0-3.0) % Myelocytes % % Platelet Evaluation (NORMAL) Anisocytosis (manual) PT (9.4-12.5) SECONDS INR APTT (26.9-38.3) Seconds Fibrinogen (200-400) mg/dl Fibrin Degrad Products (< 10 ug/mL) Sodium 134 (132-148) mmol/L Potassium 4.2 (3.6-5.0) mmol/L Chloride 93 L (98-107) mmol/L Carbon Dioxide 34 H (21-33) mmol/L Anion Gap 12 (10-20) BUN 14 (7-21) mg/dL Creatinine 0.9 (0.8-1.5) mg/dl Est GFR ( Amer) > 60 Est GFR (Non-Af Amer) > 60 Random Glucose 127 H (70-110) mg/dL Calcium 8.7 (8.4-10.5) mg/dL Phosphorus (2.5-4.5) mg/dL Magnesium 2.0 (1.7-2.2) mg/dL Total Bilirubin 0.7 (0.2-1.3) mg/dL AST 24 (17-59) U/L ALT 15 (7-56) U/L Alkaline Phosphatase 86 (38-126) U/L Total Protein 7.5 (5.8-8.3) g/dL Albumin 3.2 (3.0-4.8) g/dL Globulin 4.3 gm/dL Albumin/Globulin Ratio 0.7 L (1.1-1.8) Procalcitonin (0.19-0.49) NG/ML Blood Type Antibody Screen Crossmatch BBK History Checked Laboratory Results - last 24 hr 01/30/19 01/30/19 01/30/19 12:10 12:10 12:10 WBC 14.6 H D RBC 3.31 L Hgb 8.8 L Hct 28.9 L MCV 87.3 MCH 26.6 MCHC 30.4 L RDW 20.3 H Plt Count 22 L* MPV Neut % (Auto) 47.5 L Lymph % (Auto) 10.2 L Lawrence % (Auto) 41.0 H Eos % (Auto) 1.2 L Baso % (Auto) 0.1 Lymph # (Auto) 1.5 Lawrence # (Auto) 6.0 H Eos # (Auto) 0.2 Baso # (Auto) 0.01 Absolute Neuts (auto) 6.95 H Neutrophils % (Manual) 50 Band Neutrophils % 2 Lymphocytes % (Manual) 16 L Monocytes % (Manual) 29 H Eosinophils % (Manual) 1 Myelocytes % 2 Platelet Evaluation Low Anisocytosis (manual) 1+ PT INR APTT Fibrinogen Fibrin Degrad Products Sodium 134 Potassium 4.2 Chloride 93 L Carbon Dioxide 34 H Anion Gap 12 BUN 14 Creatinine 0.9 Est GFR ( Amer) > 60 Est GFR (Non-Af Amer) > 60 Random Glucose 127 H Calcium 8.7 Phosphorus Magnesium 2.0 Total Bilirubin 0.7 AST 24 ALT 15 Alkaline Phosphatase 86 Total Protein 7.5 Albumin 3.2 Globulin 4.3 Albumin/Globulin Ratio 0.7 L Procalcitonin Blood Type A POSITIVE Antibody Screen Negative Crossmatch See Detail BBK History Checked Patient has bt 01/30/19 01/30/19 01/30/19 13:12 19:28 19:28 WBC RBC Hgb Hct MCV MCH MCHC RDW Plt Count MPV Neut % (Auto) Lymph % (Auto) Lawrence % (Auto) Eos % (Auto) Baso % (Auto) Lymph # (Auto) Lawrence # (Auto) Eos # (Auto) Baso # (Auto) Absolute Neuts (auto) Neutrophils % (Manual) Band Neutrophils % Lymphocytes % (Manual) Monocytes % (Manual) Eosinophils % (Manual) Myelocytes % Platelet Evaluation Anisocytosis (manual) PT INR APTT 35.1 Fibrinogen 520 H Fibrin Degrad Products >40 ug/ml Sodium Potassium Chloride Carbon Dioxide Anion Gap BUN Creatinine Est GFR ( Amer) Est GFR (Non-Af Amer) Random Glucose Calcium Phosphorus Magnesium Total Bilirubin AST ALT Alkaline Phosphatase Total Protein Albumin Globulin Albumin/Globulin Ratio Procalcitonin 0.14 L Blood Type Antibody Screen Crossmatch BBK History Checked 01/30/19 01/30/19 01/31/19 20:02 22:48 06:40 WBC 14.5 H 17.9 H D RBC 3.21 L 3.02 L Hgb 8.8 L 8.1 L Hct 27.9 L 25.9 L MCV 86.9 85.8 MCH 27.4 26.8 MCHC 31.5 31.3 RDW 19.2 H 19.3 H Plt Count 15 L* 52 L MPV 9.5 Neut % (Auto) 63.6 49.0 L Lymph % (Auto) 6.7 L 7.8 L Lawrence % (Auto) 28.2 H 42.4 H Eos % (Auto) 1.4 L 0.7 L Baso % (Auto) 0.1 0.1 Lymph # (Auto) 1.0 L 1.4 Lawrence # (Auto) 4.1 H 7.6 H Eos # (Auto) 0.2 0.1 Baso # (Auto) 0.01 0.01 Absolute Neuts (auto) 9.25 H 8.78 H Neutrophils % (Manual) Band Neutrophils % Lymphocytes % (Manual) Monocytes % (Manual) Eosinophils % (Manual) Myelocytes % Platelet Evaluation Anisocytosis (manual) PT 17.2 H INR 1.55 APTT Fibrinogen Fibrin Degrad Products Sodium Potassium Chloride Carbon Dioxide Anion Gap BUN Creatinine Est GFR ( Amer) Est GFR (Non-Af Amer) Random Glucose Calcium Phosphorus Magnesium Total Bilirubin AST ALT Alkaline Phosphatase Total Protein Albumin Globulin Albumin/Globulin Ratio Procalcitonin Blood Type Antibody Screen Crossmatch BBK History Checked 01/31/19 06:40 WBC RBC Hgb Hct MCV MCH MCHC RDW Plt Count MPV Neut % (Auto) Lymph % (Auto) Lawrence % (Auto) Eos % (Auto) Baso % (Auto) Lymph # (Auto) Lawrence # (Auto) Eos # (Auto) Baso # (Auto) Absolute Neuts (auto) Neutrophils % (Manual) Band Neutrophils % Lymphocytes % (Manual) Monocytes % (Manual) Eosinophils % (Manual) Myelocytes % Platelet Evaluation Anisocytosis (manual) PT INR APTT Fibrinogen Fibrin Degrad Products Sodium 134 Potassium 4.1 Chloride 98 Carbon Dioxide 29 Anion Gap 11 BUN 15 Creatinine 0.8 Est GFR ( Amer) > 60 Est GFR (Non-Af Amer) > 60 Random Glucose 135 H Calcium 8.1 L Phosphorus 3.6 Magnesium 2.0 Total Bilirubin 0.6 AST 22 ALT 14 Alkaline Phosphatase 69 Total Protein 6.7 Albumin 3.0 Globulin 3.8 Albumin/Globulin Ratio 0.8 L Procalcitonin Blood Type Antibody Screen Crossmatch BBK History Checked Radiology Impressions: Radiology Impressions Chest X-Ray 01/30/19 12:04 IMPRESSION: No active disease. 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 and likely platelet dysfunction - Has not received any chemotherapy - rectal bleeding likely the result of hemorrhoids - received 1 unit of pRBC and platelets - Heme/Onc consulted, Dr Lassiter Dispo: transfer pt to tele today Pt seen, examined, assessment and plan discussed with Dr Miriam Barclay PGY1 - Date & Time Date: 01/31/19 Time: 07:23 <Yonny Pineda - Last Filed: 02/03/19 09:39> CCU Objective - Vital Signs / Intake & Output Vital Signs (Last 4 hours): Vital Signs Temp Pulse Resp BP Pulse Ox 02/03/19 08:16 98.1 F 97 H 20 108/64 96 02/03/19 06:00 99 H Intake and Output (Last 8hrs): Intake & Output 02/02/19 02/03/19 02/03/19 22:59 06:59 14:59 Intake Total 2020 Output Total 600 Balance 1420 Weight 122 lb Intake: IV 720 Right Forearm 720 Oral 1300 Output: Urine 600 Urine, Voided 600 Other: # Bowel Movements 2 - Medications Active Medications: Active Medications Generic Name Dose Route Start Last Admin Trade Name Freq PRN Reason Stop Dose Admin Acetaminophen 650 mg 02/02/19 19:10 02/03/19 04:19 Tylenol 325mg Tab PO 650 mg Q4H PRN Administration Pain, Mild (1-3) Arformoterol Tartrate 15 mcg 01/30/19 20:00 02/03/19 07:36 Brovana IH 15 mcg [id number] [place] Administration Budesonide 1 mg 04/29/19 20:00 02/03/19 07:36 Pulmicort Respules IH 1 mg [id number] [place] Administration Clonazepam 2 mg 01/30/19 22:00 02/02/19 21:01 Klonopin PO 2 mg HS [place] Administration Protocol Docusate Sodium 100 mg 01/31/19 18:00 02/02/19 17:04 Colace PO 100 mg BID [place] Administration Ferrous Sulfate 324 mg 01/31/19 10:00 02/02/19 09:02 Feosol PO 324 mg DAILY [place] Administration Gabapentin 100 mg 01/30/19 22:00 02/02/19 21:02 Neurontin PO 100 mg HS [facility] Administration Protocol Hydrocortisone 25 mg 01/31/19 12:00 02/02/19 17:04 Anusol-Hc RC 25 mg BID [place] Administration Ipratropium [place] 0.5 mg 01/30/19 20:00 02/03/19 07:36 Atrovent IH 0.5 mg TIDRESP [facility] Administration Mirtazapine 45 mg 01/30/19 22:00 02/02/19 21:03 Remeron PO 45 mg HS [facility] Administration Non-Formulary Medication 1 puff 01/31/19 10:00 02/02/19 13:43 Umeclidinium [place] [Incruse Ellipta] INH Not Given DAILY [facility] Oxycodone/Acetaminophen 1 tab 02/02/19 19:18 02/03/19 08:31 Percocet 5/325 Mg Tab PO 02/05/19 19:19 1 tab Q6H PRN Administration Pain, moderate (4-7) Pantoprazole Sodium 40 mg 01/31/19 06:00 02/03/19 05:49 Protonix Ec Tab PO 40 mg 0600 [place] Administration Roflumilast 500 mcg 01/31/19 10:00 02/02/19 09:03 Daliresp PO 500 mcg DAILY [place] Administration Sucralfate 1 gm 01/31/19 06:00 02/03/19 05:49 Carafate Oral Susp PO 1 gm 0600,1600 [place] Administration - Patient Studies Lab Studies: Microbiology Studies 01/30/19 22:48 Blood Culture - Preliminary Blood NO GROWTH AFTER 3 DAYS 01/30/19 22:48 Blood Culture - Preliminary Blood NO GROWTH AFTER 3 DAYS Lab Studies 02/03/19 02/03/19 02/03/19 Range/Units 04:45 04:45 04:45 WBC 14.4 H D (4.5-11.0) 10^3/uL RBC 3.14 L (3.5-6.1) 10^6/uL Hgb 8.3 L (14.0-18.0) g/dL Hct 26.6 L (42.0-52.0) % MCV 84.7 (80.0-105.0) fl MCH 26.4 (25.0-35.0) pg MCHC 31.2 (31.0-37.0) g/dl RDW 19.1 H (11.5-14.5) % Plt Count 51 L (120.0-450.0) 10^3/uL MPV 10.4 (7.0-11.0) fl Neut % (Auto) 41.3 L (50.0-68.0) % Lymph % (Auto) 12.2 L (22.0-35.0) % Lawrence % (Auto) 44.9 H (1.0-6.0) % Eos % (Auto) 1.6 (1.5-5.0) % Baso % (Auto) 0.0 (0.0-3.0) % Lymph # (Auto) 1.8 (1.2-3.4) Lawrence # (Auto) 6.5 H (0.1-0.6) Eos # (Auto) 0.2 (0.0-0.7) Baso # (Auto) 0.00 (0.0-2.0) K/mm3 Absolute Neuts (auto) 5.96 (1.4-6.5) Neutrophils % (Manual) 81 H (50.0-70.0) % Band Neutrophils % 8 H (0-2) % Lymphocytes % (Manual) 20 L (22.0-35.0) % Atypical Lymphs % 1 H (0.0-0.0) % Monocytes % (Manual) 38 H (1.0-6.0) % Myelocytes % 2 % Nucleated RBC % 1 % Platelet Evaluation Low (NORMAL) Hypochromasia Slight Anisocytosis (manual) 1+ PT 15.7 H (9.4-12.5) SECONDS INR 1.39 Sodium 135 (132-148) mmol/L Potassium 3.8 (3.6-5.0) mmol/L Chloride 100 (98-107) mmol/L Carbon Dioxide 28 (21-33) mmol/L Anion Gap 11 (10-20) BUN 15 (7-21) mg/dL Creatinine 0.8 (0.8-1.5) mg/dl Est GFR ( Amer) > 60 Est GFR (Non-Af Amer) > 60 Random Glucose 113 H (70-110) mg/dL Calcium 8.0 L (8.4-10.5) mg/dL Total Bilirubin 0.5 (0.2-1.3) mg/dL AST 27 (17-59) U/L ALT 21 (7-56) U/L Alkaline Phosphatase 62 (38-126) U/L Total Protein 6.1 (5.8-8.3) g/dL Albumin 2.7 L (3.0-4.8) g/dL Globulin 3.5 gm/dL Albumin/Globulin Ratio 0.8 L (1.1-1.8) Laboratory Results - last 24 hr 02/03/19 02/03/19 02/03/19 04:45 04:45 04:45 WBC 14.4 H D RBC 3.14 L Hgb 8.3 L Hct 26.6 L MCV 84.7 MCH 26.4 MCHC 31.2 RDW 19.1 H Plt Count 51 L MPV 10.4 Neut % (Auto) 41.3 L Lymph % (Auto) 12.2 L Lawrence % (Auto) 44.9 H Eos % (Auto) 1.6 Baso % (Auto) 0.0 Lymph # (Auto) 1.8 Lawrence # (Auto) 6.5 H Eos # (Auto) 0.2 Baso # (Auto) 0.00 Absolute Neuts (auto) 5.96 Neutrophils % (Manual) 81 H Band Neutrophils % 8 H Lymphocytes % (Manual) 20 L Atypical Lymphs % 1 H Monocytes % (Manual) 38 H Myelocytes % 2 Nucleated RBC % 1 Platelet Evaluation Low Hypochromasia Slight Anisocytosis (manual) 1+ PT 15.7 H INR 1.39 Sodium 135 Potassium 3.8 Chloride 100 Carbon Dioxide 28 Anion Gap 11 BUN 15 Creatinine 0.8 Est GFR ( Amer) > 60 Est GFR (Non-Af Amer) > 60 Random Glucose 113 H Calcium 8.0 L Total Bilirubin 0.5 AST 27 ALT 21 Alkaline Phosphatase 62 Total Protein 6.1 Albumin 2.7 L Globulin 3.5 Albumin/Globulin Ratio 0.8 L Critical Care Progress Note - Nutrition Nutrition: Nutrition Category Date Time Status Regular Diet [DIET] Diets 02/01/19 Lunch Ordered Attending/Attestation - Attestation I have personally seen and examined this patient.: Yes I have fully participated in the care of the patient.: Yes I have reviewed all pertinent clinical information: Yes Notes (Text): 02/03/19 09:39 no active bleed, hemodynamically stable, Hb stable. ok to downgrade to tele. ccm time 40 min
[2019-01-31] MEDS: Arformoterol 15 mcg/2 ml Inh Sol IH SCH ×2 (07:48→21:21)
[2019-01-31] MEDS: Ipratropium 0.02% Inhal Soln (0.5 mg/2.5 ml) UD IH SCH ×3 (07:48→21:20)
[2019-01-31] MEDS: Budesonide 0.5 mg/2 ml Inhal Susp UD IH SCH ×2 (07:49→21:21)
--- NOTE | 2019-01-31 08:20 | CON ---
DATE: 01/30/2019 LOCATION: The patient is in room 372, bed 2. HISTORY OF PRESENT ILLNESS: This is a 73-year-old white male with past medical history of recently diagnosed AML during his last admission just less than a week ago, anemia, and thrombocytopenia with a long history of COPD. He was supposed to be seen in our office today, but had become progressively weak at home and started noticing bright red rectal bleeding since yesterday. The patient had been constipated and had been taking prune juice, but noticed the bleeding started initially in the form of drops on his bed sheets and then was passing chunks of blood. The patient was then seen in the ER and advised admission. The patient admits to fatigue. This is unchanged from his baseline. Denies fevers, chills, chest pain. He is short of breath on exertion. Denies any history of abdominal pain, diarrhea, or dysuria. Duration of his symptoms is less than 24 hours. The patient has been complaining of tiredness. His shortness of breath related to his COPD has been stable. Denies any history of fevers or chills. No history of nausea or vomiting. The patient was recently in the hospital during the last admission which was less than a week ago when he received 2 units of blood and a unit of platelets and discharged for further management as an outpatient while we were debating to start him on a combination of treatment while we were waiting for further delineation of some of the markers of his AML, start him on decitabine along with combination with a pill called venetoclax which had been gradually escalated to a total dose of 400 mg a day along with decitabine which would be given based on body surface area 40/M2 over a period of 60 minutes daily for five days and depending upon the treatment tolerance, we will proceed accordingly with treatment being planned once every 21 to 28 days. REVIEW OF SYSTEMS: A 12-system review of systems was done, and all of them were noncontributory except for what is mentioned in the HPI. ALLERGIES: THE PATIENT HAS NO SIGNIFICANT ALLERGIES AT THIS TIME. HOME MEDICATIONS: Include clonazepam 10 mg daily, Advair Diskus 1 puff inhaled daily, Ellipta 1 puff inhaled daily, and gabapentin 100 mg p.o. at bedtime. PHYSICAL EXAMINATION: VITAL SIGNS: Stable. The patient has been afebrile. The patient's blood pressure is normal. The patient is tachycardic. HEENT: Conjunctivae pale. Sclerae are anicteric. Pupils are equally reactive to light and accommodation. The patient appears to be cachectic with temporal muscle wasting noted. Tongue is coated and dry. No oropharyngeal lesions are noted. No evidence of petechiae on examination of the oropharynx. MENTAL STATUS: The patient is awake, alert, and oriented x3. LUNGS: Reveal them to be clear to percussion and auscultation with no adventitious sounds. HEART: Reveals S1 and S2 to be normal. The patient is tachycardic. ABDOMEN: Soft and nontender. Bowel sounds are present. There is no evidence of abdominal distention or peritoneal signs. No masses per se are felt. RECTAL: The patient has gross bleeding per rectum, passing a lot of clots. EXTREMITIES: Lower extremities reveals to be unremarkable. SKIN: No lesions are noted on examination of the skin in the form of petechiae. NEUROLOGIC: Reveals higher functions to be normal. No focal deficits are noted. 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 He is now admitted to the emergency room with new onset of rectal bleeding in the background history of anemia and thrombocytopenia. The plan is to start the patient on IV fluids. We will plan for a unit of packed cells and a unit of single-donor apheresis platelets. We will evaluate the patient for gastrointestinal evaluation in view of the rectal bleeding. Continue to monitor the patient carefully with blood and blood products. In the interim, get a coagulation workup to make sure the patient is not developing coagulopathy. The patient will need both gastrointestinal and surgical evaluation to make sure nothing acutely is going on from the bleeding per se, though dysfunctional platelets in this patient with new diagnosis of acute myeloid leukemia could be the cause of the factor in the bleeding, especially if he has internal hemorrhoids. Hemoglobin is 8.8, platelet count is 22,000, and white count is 14,000. Recommendation was to do procalcitonin at this time without starting the patient on IV antibiotics and see which direction we would be proceeding. If the bleeding continues, the patient may need to get more than 2 units of packed cells, maybe after giving a unit of FFP as well if there is a question of coagulopathy. EKG shows sinus tachycardia at 109 beats per minute and normal interval without any ST-T elevation. I had a long discussion with the patient, spoke to the patient's sister and told her that patient is critically ill at this time and may have to be transferred to the ICU in view of the continued bleeding and in view of diagnosis of AML with anemia and thrombocytopenia that could probably force the patient to deteriorate during the night at which time it would be safer to monitor in the unit. Time spent with the patient is greater than 80 minutes. Spoke to the nurses at great length who were managing his case. Spoke to the family as well and spoke to the PMD as well. Overall, prognosis is guarded. We will plan on starting systemic therapy with Dacogen and venetoclax when the patient is stable. He will need surgical evaluation as well, and we will get the surgeon on board. Please make a note this is a complex patient with multiple comorbid medical issues. Chandrika Lassiter MD
--- NOTE | 2019-01-31 09:27 | CP.PCM.PN ---
Objective - Vital Signs/Intake and Output Vital Signs (last 24 hours): Temp Pulse Resp BP Pulse Ox 98.7 F 99 H 22 112/73 93 L 01/31/19 03:04 01/31/19 04:00 01/31/19 03:04 01/31/19 03:04 01/31/19 03:04 Intake and Output: 01/31/19 01/31/19 06:59 18:59 Intake Total 960 Output Total 900 Balance 60 - Medications Medications: Current Medications Arformoterol Tartrate (Brovana) 15 mcg IH [id number] [facility] Last Admin: 01/31/19 07:48 Dose: 15 mcg Budesonide (Pulmicort Respules) 1 mg IH [id number] [facility] Last Admin: 01/31/19 07:49 Dose: 1 mg Clonazepam (Klonopin) 2 mg PO HS [facility]; Protocol Last Admin: 01/30/19 23:51 Dose: 2 mg Ferrous Sulfate (Feosol) 324 mg PO DAILY [facility] Gabapentin (Neurontin) 100 mg PO HS [facility]; Protocol Last Admin: 01/30/19 23:51 Dose: 100 mg Dextrose/Sodium Chloride (Dextrose 5%/0.45% Ns 1000 Ml) 1,000 mls @ 60 mls/hr IV .[id number] [facility] Ipratropium [place] (Atrovent) 0.5 mg IH TIDRESP [facility] Last Admin: 01/31/19 07:48 Dose: 0.5 mg Mirtazapine (Remeron) 45 mg PO HS [facility] Last Admin: 01/30/19 23:53 Dose: 45 mg Non-Formulary Medication (Umeclidinium [place] [Incruse Ellipta]) 1 puff INH DAILY [facility] Oxycodone/Acetaminophen (Percocet 5/325 Mg Tab) 1 tab PO Q6H PRN PRN Reason: Pain, moderate (4-7) Stop: 02/02/19 17:05 Last Admin: 01/30/19 23:52 Dose: 1 tab Pantoprazole Sodium (Protonix Ec Tab) 40 mg PO 0600 [facility] Last Admin: 01/31/19 05:51 Dose: 40 mg Roflumilast (Daliresp) 500 mcg PO DAILY [facility] Sucralfate (Carafate Oral Susp) 1 gm PO 0600,1600 [facility] Last Admin: 01/31/19 05:52 Dose: 1 gm - Labs Labs: 01/31/19 06:40 01/31/19 06:40 PT 17.2 SECONDS (9.4-12.5) H 01/30/19 20:02 INR 1.55 01/30/19 20:02 APTT 35.1 Seconds (26.9-38.3) 01/30/19 19:28
--- NOTE | 2019-01-31 09:28 | CP.PCM.PN ---
Subjective - Date & Time of Evaluation Date of Evaluation: 01/31/19 Time of Evaluation: 06:00 - Subjective Subjective: Ye Pinto PGY2 Heme/Onc Progress Note for Dr. Lassiter Patient seen and evaluated bedside in AM in ICU. No acute issues overnight. Patient denies any acute complaints, denies any bloody bowel movements. Objective - Vital Signs/Intake and Output Vital Signs (last 24 hours): Temp Pulse Resp BP Pulse Ox 98.7 F 99 H 22 112/73 93 L 01/31/19 03:04 01/31/19 04:00 01/31/19 03:04 01/31/19 03:04 01/31/19 03:04 Intake and Output: 01/31/19 01/31/19 06:59 18:59 Intake Total 960 Output Total 900 Balance 60 - Medications Medications: Current Medications Arformoterol Tartrate (Brovana) 15 mcg IH [id number] [facility] Last Admin: 01/31/19 07:48 Dose: 15 mcg Budesonide (Pulmicort Respules) 1 mg IH [id number] [facility] Last Admin: 01/31/19 07:49 Dose: 1 mg Clonazepam (Klonopin) 2 mg PO HS [facility]; Protocol Last Admin: 01/30/19 23:51 Dose: 2 mg Ferrous Sulfate (Feosol) 324 mg PO DAILY [facility] Gabapentin (Neurontin) 100 mg PO HS [facility]; Protocol Last Admin: 01/30/19 23:51 Dose: 100 mg Dextrose/Sodium Chloride (Dextrose 5%/0.45% Ns 1000 Ml) 1,000 mls @ 60 mls/hr IV .[id number] [facility] Ipratropium [place] (Atrovent) 0.5 mg IH TIDRESP [facility] Last Admin: 01/31/19 07:48 Dose: 0.5 mg Mirtazapine (Remeron) 45 mg PO HS [facility] Last Admin: 01/30/19 23:53 Dose: 45 mg Non-Formulary Medication (Umeclidinium [place] [Incruse Ellipta]) 1 puff INH DAILY [facility] Oxycodone/Acetaminophen (Percocet 5/325 Mg Tab) 1 tab PO Q6H PRN PRN Reason: Pain, moderate (4-7) Stop: 02/02/19 17:05 Last Admin: 01/30/19 23:52 Dose: 1 tab Pantoprazole Sodium (Protonix Ec Tab) 40 mg PO 0600 [facility] Last Admin: 01/31/19 05:51 Dose: 40 mg Roflumilast (Daliresp) 500 mcg PO DAILY [facility] Sucralfate (Carafate Oral Susp) 1 gm PO 0600,1600 [facility] Last Admin: 01/31/19 05:52 Dose: 1 gm - Labs Labs: 01/31/19 06:40 01/31/19 06:40 PT 17.2 SECONDS (9.4-12.5) H 01/30/19 20:02 INR 1.55 01/30/19 20:02 APTT 35.1 Seconds (26.9-38.3) 01/30/19 19:28 - Constitutional Appears: No Acute Distress - Eye Exam Eye Exam: EOMI, Normal appearance - Respiratory Exam Respiratory Exam: NORMAL BREATHING PATTERN - Cardiovascular Exam Cardiovascular Exam: +S1, +S2 - Neurological Exam Neurological Exam: Alert, Awake, Oriented x3 Assessment and Plan - Assessment and Plan (Free Text) Plan: 1. Anemia -secondary to GI loss and underlying AML -Hgb 8.1 this AM -s/p 1 units PRBC -platelets 52 -s/p 1 unit platelet transfusion -monitor H/H -transfuse as needed -AML diagnosed on last visit -GI consulted, [place], follow recs -patient will follow up outpatient for treatment regimen
--- NOTE | 2019-01-31 09:31 | CARD ---
APPROVED REPORT Date of service: 01/30/2019 EKG Measurement Heart [id number] <Conclusion> Sinus tachycardia Otherwise normal ECG
[2019-01-31] MEDS ORDERED: Fluticasone-Salmeterol 500-50mcg Diskus INH SCH (10:00)
[2019-01-31 10:05] LABS: VENOUS BLOOD GAS BASE EXCESS 6.2 mmol/L (0.0-2.0); VENOUS BLOOD GAS PO2 59 mm/Hg (30-55); VENOUS BLOOD PH 7.47 (7.32-7.43)
--- NOTE | 2019-01-31 10:10 | PN ---
DATE: 01/31/2019 SUBJECTIVE: A 73-year-old white male seen in bed 1 of the critical care unit. The patient was admitted to the floor but transferred in the midnight to unit because of severe large amount of bright red blood per rectum. The patient is stable, he had blood transfusions and platelet transfusions overnight. He has recent history of acute myelomonocytic leukemia. Hemoglobin is up to 8.1 and platelet count is up to 52,000 after transfusion. The bleeding has slowed. The patient is awake and alert. He tachycardiac. He did have a bleeding scan, we are awaiting for results. We awaiting for Dr. Renner's input from GI. PLAN: Transfuse as needed, look to any source of bleeding and control as needed. Martinez Jeff MD
--- NOTE | 2019-01-31 11:51 | NM ---
Date of service: 01/30/2019 PROCEDURE: Nuclear medicine gastrointestinal bleeding scan. HISTORY: GI Bleed COMPARISON: None available. TECHNIQUE: 30.0of patient blood was withdrawn and mixed with mCi of technetium ultra tagged. Images of the abdomen and pelvis were obtained in the anterior and posterior projection at 1 min intervals over a period of 45 min. FINDINGS: No abnormal extravasation of tracer was observed throughout the exam to indicate active bleeding within or outside the gastrointestinal tract. Uptake in the bladder, pelvis/genitalia identified. This is a static finding. Physiologic activity was seen in the heart, liver, spleen and blood vessels. IMPRESSION: No evidence of active gastrointestinal bleeding.
[2019-01-31] MEDS: Oxycodone/Acetaminophen 5/325 mg Tab PO PRN (11:54)
[2019-01-31] MEDS: Dextrose 5%/0.45% NS 1,000 ML IV SCH ×2 (11:58→12:01)
[2019-01-31] MEDS ORDERED: Magnesium Citrate Oral SOL (300 ml) PO ONE (12:01)
[2019-01-31 12:10] LABS: EOS # 0.2 (0.0-0.7); EOS % 1.3 % (1.5-5.0); HEMOGLOBIN 7.8 g/dL (14.0-18.0); LYMPH # 1.6 (1.2-3.4); LYMPH % 9.1 % (22.0-35.0); MEAN CELL VOLUME 86.1 fl (80.0-105.0); MEAN CORPUSCULAR HEMOGLOBIN 27.2 pg (25.0-35.0); MEAN CORPUSCULAR HGB CONC 31.6 g/dl (31.0-37.0); MEAN PLATELET VOLUME 9.7 fl (7.0-11.0); MONO # 9.7 (0.1-0.6); MONO % 53.9 % (1.0-6.0); RBC 2.87 10^6/uL (3.5-6.1); RED CELL DISTRIBUTION WIDTH 19.4 % (11.5-14.5)
[2019-01-31 12:26] LABS: PLATELET COUNT 47 10^3/uL (120.0-450.0)
[2019-01-31] MEDS: Non Formulary Medication (Umeclidinium Bromide [Incruse Ellipta] 1 PUFF) INH SCH (12:31)
--- NOTE | 2019-01-31 14:01 | CP.PCM.CON ---
History of Present Illness - History of Present Illness History of Present Illness: Palliative consult requested by Dr Anuj Jeff Reason: Goals of care This is a 73 year old male with history of anemia, AML and COPD who presented to ED with rectal bleeding. He was recently diagnosed (01/10) with AML and was scheduled to start treatment when he developed the the bleeding the previous evening before comimg to ED. He complained of weakness and feeling lightheaded. He denied fevers, chills, nausea, vomiting, headache, dysuria, hematuria or any other complaints Chest x ray: No active disease Nuclear bleeding scan: Negative Labs: Leukocytosis, anemia, thrombocytopenia PMHx:AML,anemia, COPD,anxiety PSHx: abdominal aneurysm repair Social History: Former smoker and social alcohol use, no drug use. 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 Family History: Non contributory Advance Care Planning: The patient does not have an Advanced Directive. Review of Systems: As per HPI, 12 point ROS otherwise negative Past Patient History - Infectious Disease Hx of Infectious Diseases: None - Past Social History Smoking Status: Former Smoker - CARDIAC Hx Cardiac Disorders: Yes (AAA) - PULMONARY Hx Respiratory Disorders: Yes (USED TO SMOKE CIGARETTES SOCIALLY .QUIT.) Hx Chronic Obstructive Pulmonary Disease (COPD): Yes - NEUROLOGICAL Hx Neurological Disorder: Yes Hx Dizziness: Yes - HEENT Hx HEENT Problems: No - RENAL Hx Chronic Kidney Disease: No - ENDOCRINE/METABOLIC Hx Endocrine Disorders: No - HEMATOLOGICAL/ONCOLOGICAL Hx Blood Disorders: Yes (THROMBOCYTOPENIA) Hx Anemia: Yes (BLOOD TRANSFUSION) - INTEGUMENTARY Hx Dermatological Problems: No - MUSCULOSKELETAL/RHEUMATOLOGICAL Hx Musculoskeletal Disorders: No Hx Falls: No Hx Unsteady Gait: Yes (WALKER,CANE) - GASTROINTESTINAL Hx Gastrointestinal Disorders: Yes Hx Gastroesophageal Reflux: Yes - GENITOURINARY/GYNECOLOGICAL Hx Genitourinary Disorders: No - PSYCHIATRIC Hx Psychophysiologic Disorder: No Hx Substance Use: No - SURGICAL HISTORY Hx Surgeries: Yes (Aortic aneursym repair) - ANESTHESIA Hx Anesthesia: Yes Hx Anesthesia Reactions: No Hx Malignant Hyperthermia: No Meds Allergies/Adverse Reactions: Allergies Allergy/AdvReac Type Severity Reaction Status Date / Time No Known Allergies Allergy Verified 01/30/19 16:37 - Medications Medications: Current Medications Arformoterol Tartrate (Brovana) 15 mcg IH [id number] [facility] Last Admin: 01/31/19 07:48 Dose: 15 mcg Budesonide (Pulmicort Respules) 1 mg IH [id number] [facility] Last Admin: 01/31/19 07:49 Dose: 1 mg Clonazepam (Klonopin) 2 mg PO HS [facility]; Protocol Last Admin: 01/30/19 23:51 Dose: 2 mg Docusate Sodium (Colace) 100 mg PO BID [facility] Ferrous Sulfate (Feosol) 324 mg PO DAILY [facility] Last Admin: 01/31/19 10:33 Dose: 324 mg Gabapentin (Neurontin) 100 mg PO HS [facility]; Protocol Last Admin: 01/30/19 23:51 Dose: 100 mg Hydrocortisone (Anusol-Hc) 25 mg RC BID [facility] Dextrose/Sodium Chloride (Dextrose 5%/0.45% Ns 1000 Ml) 1,000 mls @ 60 mls/hr IV .[id number] [facility] Last Admin: 01/31/19 12:01 Dose: 60 mls/hr Ipratropium [place] (Atrovent) 0.5 mg IH TIDRESP [facility] Last Admin: 01/31/19 13:29 Dose: 0.5 mg Mirtazapine (Remeron) 45 mg PO HS [facility] Last Admin: 01/30/19 23:53 Dose: 45 mg Non-Formulary Medication (Umeclidinium [place] [Incruse Ellipta]) 1 puff INH DAILY [facility] Last Admin: 01/31/19 12:31 Dose: Not Given Oxycodone/Acetaminophen (Percocet 5/325 Mg Tab) 1 tab PO Q6H PRN PRN Reason: Pain, moderate (4-7) Stop: 02/02/19 17:05 Last Admin: 01/31/19 11:54 Dose: 1 tab Pantoprazole Sodium (Protonix Ec Tab) 40 mg PO 0600 [facility] Last Admin: 01/31/19 05:51 Dose: 40 mg Roflumilast (Daliresp) 500 mcg PO DAILY [facility] Last Admin: 01/31/19 12:04 Dose: 500 mcg Sucralfate (Carafate Oral Susp) 1 gm PO 0600,1600 [facility] Last Admin: 01/31/19 05:52 Dose: 1 gm Physical Exam - Constitutional Appears: Chronically Ill - Head Exam Head Exam: NORMOCEPHALIC - Eye Exam Eye Exam: Normal appearance, PERRL - ENT Exam ENT Exam: Mucous Membranes Moist, Normal Oropharynx - Neck Exam Neck exam: Positive for: Normal Inspection - Respiratory Exam Respiratory Exam: Clear to Auscultation Bilateral, NORMAL BREATHING PATTERN - Cardiovascular Exam Cardiovascular Exam: REGULAR RHYTHM, +S1, +S2 - GI/Abdominal Exam GI & Abdominal Exam: Normal Bowel Sounds, Soft Additional comments: no tenderness - Extremities Exam Extremities exam: Positive for: pedal pulses present - Neurological Exam Neurological exam: Alert, Oriented x3 - Skin Skin Exam: Dry, Pallor - Additional Findings Additional findings: Palliative performance scale rating 40% Results - Vital Signs Recent Vital Signs: Last Vital Signs Temp 98.7 F 01/31/19 03:04 Pulse 99 H 01/31/19 04:00 Resp 22 01/31/19 03:04 BP 112/73 01/31/19 03:04 Pulse Ox 93 L 01/31/19 03:04 - Labs Result Diagrams: 01/31/19 11:50 01/31/19 06:40 Labs: Laboratory Results - last 24 hr 01/30/19 01/30/19 01/30/19 12:10 13:12 19:28 WBC RBC Hgb Hct MCV MCH MCHC RDW Plt Count MPV Neut % (Auto) Lymph % (Auto) [place] % (Auto) Eos % (Auto) Baso % (Auto) Lymph # (Auto) [place] # (Auto) Eos # (Auto) Baso # (Auto) Absolute Neuts (auto) PT INR APTT 35.1 Fibrinogen 520 H Fibrin Degrad Products pO2 VBG pH VBG pCO2 VBG HCO3 VBG Total CO2 VBG O2 Sat (Calc) VBG Base Excess VBG Potassium Glucose Lactate FiO2 Sodium Potassium Chloride Carbon Dioxide Anion Gap BUN Creatinine Est GFR ( Amer) Est GFR (Non-Af Amer) Random Glucose Calcium Phosphorus Magnesium Total Bilirubin AST ALT Alkaline Phosphatase Total Protein Albumin Globulin Albumin/Globulin Ratio Procalcitonin 0.14 L Venous Blood Potassium Blood Type A POSITIVE Antibody Screen Negative Crossmatch See Detail BBK History Checked Patient has bt 01/30/19 01/30/19 01/30/19 19:28 20:02 22:48 WBC 14.5 H RBC 3.21 L Hgb 8.8 L Hct 27.9 L MCV 86.9 MCH 27.4 MCHC 31.5 RDW 19.2 H Plt Count 15 L* MPV Neut % (Auto) 63.6 Lymph % (Auto) 6.7 L [place] % (Auto) 28.2 H Eos % (Auto) 1.4 L Baso % (Auto) 0.1 Lymph # (Auto) 1.0 L [place] # (Auto) 4.1 H Eos # (Auto) 0.2 Baso # (Auto) 0.01 Absolute Neuts (auto) 9.25 H PT 17.2 H INR 1.55 APTT Fibrinogen Fibrin Degrad Products >40 ug/ml pO2 VBG pH VBG pCO2 VBG HCO3 VBG Total CO2 VBG O2 Sat (Calc) VBG Base Excess VBG Potassium Glucose Lactate FiO2 Sodium Potassium Chloride Carbon Dioxide Anion Gap BUN Creatinine Est GFR ( Amer) Est GFR (Non-Af Amer) Random Glucose Calcium Phosphorus Magnesium Total Bilirubin AST ALT Alkaline Phosphatase Total Protein Albumin Globulin Albumin/Globulin Ratio Procalcitonin Venous Blood Potassium Blood Type Antibody Screen Crossmatch BBK History Checked 01/31/19 01/31/19 01/31/19 06:40 06:40 09:50 WBC 17.9 H D RBC 3.02 L Hgb 8.1 L Hct 25.9 L MCV 85.8 MCH 26.8 MCHC 31.3 RDW 19.3 H Plt Count 52 L MPV 9.5 Neut % (Auto) 49.0 L Lymph % (Auto) 7.8 L [place] % (Auto) 42.4 H Eos % (Auto) 0.7 L Baso % (Auto) 0.1 Lymph # (Auto) 1.4 [place] # (Auto) 7.6 H Eos # (Auto) 0.1 Baso # (Auto) 0.01 Absolute Neuts (auto) 8.78 H PT INR APTT Fibrinogen Fibrin Degrad Products pO2 59 H VBG pH 7.47 H VBG pCO2 42.0 VBG HCO3 30.6 H VBG Total CO2 31.9 H VBG O2 Sat (Calc) 93.9 H VBG Base Excess 6.2 H VBG Potassium 3.7 Glucose 206 H Lactate 1.8 FiO2 21.0 Sodium 134 136.0 Potassium 4.1 Chloride 98 103.0 Carbon Dioxide 29 Anion Gap 11 BUN 15 Creatinine 0.8 Est GFR ( Amer) > 60 Est GFR (Non-Af Amer) > 60 Random Glucose 135 H Calcium 8.1 L Phosphorus 3.6 Magnesium 2.0 Total Bilirubin 0.6 AST 22 ALT 14 Alkaline Phosphatase 69 Total Protein 6.7 Albumin 3.0 Globulin 3.8 Albumin/Globulin Ratio 0.8 L Procalcitonin Venous Blood Potassium 3.7 Blood Type Antibody Screen Crossmatch BBK History Checked 01/31/19 11:50 WBC 18.0 H RBC 2.87 L Hgb 7.8 L Hct 24.7 L MCV 86.1 MCH 27.2 MCHC 31.6 RDW 19.4 H Plt Count 47 L* MPV 9.7 Neut % (Auto) 35.7 L Lymph % (Auto) 9.1 L [place] % (Auto) 53.9 H Eos % (Auto) 1.3 L Baso % (Auto) 0.0 Lymph # (Auto) 1.6 [place] # (Auto) 9.7 H Eos # (Auto) 0.2 Baso # (Auto) 0.00 Absolute Neuts (auto) 6.41 PT INR APTT Fibrinogen Fibrin Degrad Products pO2 VBG pH VBG pCO2 VBG HCO3 VBG Total CO2 VBG O2 Sat (Calc) VBG Base Excess VBG Potassium Glucose Lactate FiO2 Sodium Potassium Chloride Carbon Dioxide Anion Gap BUN Creatinine Est GFR ( Amer) Est GFR (Non-Af Amer) Random Glucose Calcium Phosphorus Magnesium Total Bilirubin AST ALT Alkaline Phosphatase Total Protein Albumin Globulin Albumin/Globulin Ratio Procalcitonin Venous Blood Potassium Blood Type Antibody Screen Crossmatch BBK History Checked Assessment & Plan - Assessment and Plan (Free Text) Assessment: This is a 73 year old male with history of AML, COPD, anemia who is admitted with GI bleed, anemia and thrombocytopenia. The patient is seen in the ICU. He is lethargic,oriented to self place. He is aw are of his medical condition and the reason for this hospitalization The patient does not have and advance directive. I tried to discuss goals of care and advance care planning but patient states he is not up to it at this time. He indicated that it would be better to talk when his sister,Byron is present. Plan: Goals of care and advance car planning GI recs reviewed, Bleeding scan negative, NPO. No further rectal bleeding,> hemorrhoids? Anemia; stable s/p 1 U PRBC's, monitor CBC AML: To follow up with Dr Lassiter as an out patient
[2019-01-31 17:05] LABS: BASO # 0.01 K/mm3 (0.0-2.0); BASO % 0.1 % (0.0-3.0); EOS # 0.1 (0.0-0.7); EOS % 0.6 % (1.5-5.0); HEMOGLOBIN 7.8 g/dL (14.0-18.0); LYMPH # 2.1 (1.2-3.4); LYMPH % 14.7 % (22.0-35.0); MEAN CELL VOLUME 86.5 fl (80.0-105.0); MEAN CORPUSCULAR HEMOGLOBIN 27.1 pg (25.0-35.0); MEAN CORPUSCULAR HGB CONC 31.3 g/dl (31.0-37.0); MEAN PLATELET VOLUME 9.3 fl (7.0-11.0); MONO # 7.1 (0.1-0.6); MONO % 49.7 % (1.0-6.0); RBC 2.88 10^6/uL (3.5-6.1); RED CELL DISTRIBUTION WIDTH 19.4 % (11.5-14.5); WHITE BLOOD COUNT 14.3 10^3/uL (4.5-11.0)
[2019-01-31 17:11] LABS: PLATELET COUNT 44 10^3/uL (120.0-450.0)
--- NOTE | 2019-01-31 18:30 | CON ---
DATE OF CONSULTATION: 01/31/2019 GASTROENTEROLOGY CONSULTATION REQUESTING PHYSICIAN: Dr. Jeff. REASON FOR CONSULTATION: I have been asked to see this 73-year-old male well-known to me with a history of anemia and thrombocytopenia with recently diagnosed acute myeloid leukemia (AML). The patient came to the hospital after developing profuse rectal bleeding at home. This started after the patient strained to have a bowel movement. He apparently was constipated and straining to move his bowels. In the emergency room, he had several more episodes of rectal bleeding. The patient had a colonoscopy with removal of polyps back in 08/2018 at [facility]. Routine blood work on presentation to the emergency room revealed a hemoglobin of 8.8 and platelet count of 22,000. The patient was about to start chemotherapy for his AML when he developed the rectal bleeding. He denies any chest pain or shortness of breath. He has chronic generalized weakness from his anemia. A bleeding scan performed in the emergency room was negative for any site of bleeding throughout the colon. He was transfused 1 unit of packed red blood cells and 1 unit of platelets. His platelet count this morning is 52,000. He has not had any further bleeding since he has been admitted to the hospital from the emergency room. PAST MEDICAL HISTORY: Notable for AML, COPD, chronic anemia, thrombocytopenia. PAST SURGICAL HISTORY: Notable for abdominal aortic aneurysm repair. SOCIAL HISTORY: He denies cigarette smoking or alcohol use. FAMILY HISTORY: Noncontributory. REVIEW OF SYSTEMS: Fourteen-point review of systems is notable for rectal bleeding, constipation, and generalized weakness. MEDICATIONS: Medications at home include Klonopin, Incruse Ellipta, Carafate suspension, Daliresp, pantoprazole, Remeron, Atrovent, Neurontin, Advair Diskus, ferrous sulfate, budesonide inhaler, and Brovana inhaler. PHYSICAL EXAMINATION: GENERAL: Elderly male, appearing weak, lying in bed, in no distress. VITAL SIGNS: Reveal a temperature of 98.7, blood pressure 112/73, heart rate of 92. HEENT: Revealed sclerae to be white. Conjunctivae pale. NECK: Supple. CHEST: Revealed lungs to be distant breath sounds with some scattered coarse rales. HEART: Exam reveals a regular rate and rhythm. ABDOMEN: Soft, nontender. No mass. EXTREMITIES: Show no edema. RECTAL EXAM: Shows the presence of a moderate-sized right posterior external hemorrhoid. There is no blood or mass in the rectal vault. There is green stool present in the rectum without blood. LABORATORY DATA: Revealed white blood cell count 17.9, hemoglobin 8.1, platelet count 52,000. Chemistries reveal blood sugar 135, normal electrolytes, procalcitonin 0.14. IMPRESSION: A 73-year-old male with recently diagnosed acute myeloid leukemia with profuse rectal bleeding. He does have a large external hemorrhoid on digital exam without any mass or blood in the rectal vault. He also has thrombocytopenia and anemia from his acute myeloid leukemia. I suspect that the rectal bleeding is secondary to the hemorrhoid. A nuclear bleeding scan was negative. His blood count has remained essentially stable since his hospitalization. RECOMMENDATIONS: 1. We will start the patient on Anusol-HC 25 mg suppositories twice a day, Colace 100 mg twice a day, follow serial hematocrits. We will schedule the patient for a flexible sigmoidoscopy in the morning. Note: He did have a colonoscopy 6 months ago at [facility] in [place]. Deven Renner MD
[2019-01-31 22:46] LABS: HEMOGLOBIN 7.5 g/dL (14.0-18.0); MEAN CELL VOLUME 86.1 fl (80.0-105.0); MEAN CORPUSCULAR HEMOGLOBIN 26.8 pg (25.0-35.0); MEAN CORPUSCULAR HGB CONC 31.1 g/dl (31.0-37.0); MEAN PLATELET VOLUME 9.4 fl (7.0-11.0); RBC 2.8 10^6/uL (3.5-6.1); RED CELL DISTRIBUTION WIDTH 19.3 % (11.5-14.5); WHITE BLOOD COUNT 12.1 10^3/uL (4.5-11.0)
[2019-02-01] MEDS: Sucralfate 1 gm/10 ml Oral Susp UD PO SCH ×2 (05:27→17:14)
[2019-02-01] MEDS: Dextrose 5%/0.45% NS 1,000 ML IV SCH (05:27)
[2019-02-01] MEDS: Pantoprazole 40 mg EC Tab PO SCH (05:28)
[2019-02-01] MEDS: Oxycodone/Acetaminophen 5/325 mg Tab PO PRN ×3 (06:23→21:10)
[2019-02-01 06:26] LABS: BASO # 0.01 K/mm3 (0.0-2.0); BASO % 0.1 % (0.0-3.0); EOS # 0.1 (0.0-0.7); EOS % 0.6 % (1.5-5.0); HEMOGLOBIN 7.7 g/dL (14.0-18.0); LYMPH # 1.7 (1.2-3.4); LYMPH % 12.8 % (22.0-35.0); MEAN CELL VOLUME 86.4 fl (80.0-105.0); MEAN CORPUSCULAR HEMOGLOBIN 26.8 pg (25.0-35.0); MEAN PLATELET VOLUME 10.8 fl (7.0-11.0); MONO # 5.7 (0.1-0.6); MONO % 41.9 % (1.0-6.0); RBC 2.87 10^6/uL (3.5-6.1); RED CELL DISTRIBUTION WIDTH 19.4 % (11.5-14.5); WHITE BLOOD COUNT 13.6 10^3/uL (4.5-11.0)
[2019-02-01 07:17] LABS: ALB/GLOB RATIO 0.8 (1.1-1.8); ALT/SGPT 17 U/L (7-56); AST/SGOT 31 U/L (17-59); BLOOD UREA NITROGEN 11 mg/dL (7-21); CALCIUM 8.4 mg/dL (8.4-10.5); GFR NON-AFRICAN AMERICAN > 60
[2019-02-01] MEDS: Arformoterol 15 mcg/2 ml Inh Sol IH SCH ×2 (07:38→20:06)
[2019-02-01] MEDS: Ipratropium 0.02% Inhal Soln (0.5 mg/2.5 ml) UD IH SCH ×3 (07:38→20:07)
[2019-02-01] MEDS: Budesonide 0.5 mg/2 ml Inhal Susp UD IH SCH ×2 (07:39→20:06)
[2019-02-01] MEDS ORDERED: Midazolam 2 MG/2 ML VIAL ONE (11:06)
[2019-02-01] MEDS ORDERED: Etomidate 20 mg/10ml Inj IV ONE (11:07)
[2019-02-01] MEDS ORDERED: Sodium Chloride 0.9% 1,000 ML IV SCH (11:30)
--- NOTE | 2019-02-01 12:24 | PN ---
DATE: 02/01/2019 SUBJECTIVE: A 73-year-old white male is seen in the ICU, bed 1. The patient is stable. He has no further bleeding. Bleeding scan is negative. The patient's white counts are holding at 7.7 and a platelet count of 82,000. He was transfused platelets and blood. His abdomen is soft, bowel sounds are stable. He is awake and alert. The patient was seen in consultation with Dr. Renner. He is going to have a flexible sigmoidoscopy today. Pending the outcome, the patient will be transferred back to floor and most likely discharged home in the next 24 to 48 hours. Martinez Jeff MD
--- NOTE | 2019-02-01 13:52 | CP.PCM.PN ---
Subjective - Date & Time of Evaluation Date of Evaluation: 02/01/19 Time of Evaluation: 13:43 - Subjective Subjective: General Surgery: Dr Mirza Pt S&E in ICU. Just returned from GI suite s/p colonoscopy. Found to have acutely bleeding external hemorrhoids. Currently hemodynamically stable with MAPs >55. No tachycardia. No further episodes of bleeding. Pt reports no abdominal pain, no nausea, no vomiting. Remains NPO. Up for transfer to telemetry. HgB 7.7 up from 7.5, however per ICU will be receiving another unit pRBC prior to transfer. Objective - Vital Signs/Intake and Output Vital Signs (last 24 hours): Temp Pulse Resp BP Pulse Ox 98 F 88 16 142/92 H 98 02/01/19 11:50 02/01/19 11:50 02/01/19 11:50 02/01/19 11:50 02/01/19 11:50 - Medications Medications: Current Medications Arformoterol Tartrate (Brovana) 15 mcg IH [id number] [facility] Last Admin: 02/01/19 07:38 Dose: 15 mcg Budesonide (Pulmicort Respules) 1 mg IH [id number] [facility] Last Admin: 02/01/19 07:39 Dose: 1 mg Clonazepam (Klonopin) 2 mg PO HS [facility]; Protocol Last Admin: 01/31/19 21:12 Dose: 2 mg Docusate Sodium (Colace) 100 mg PO BID [facility] Last Admin: 02/01/19 13:16 Dose: 100 mg Ferrous Sulfate (Feosol) 324 mg PO DAILY [facility] Last Admin: 02/01/19 13:17 Dose: 324 mg Gabapentin (Neurontin) 100 mg PO HS [facility]; Protocol Last Admin: 01/31/19 21:12 Dose: 100 mg Hydrocortisone (Anusol-Hc) 25 mg RC BID [facility] Last Admin: 01/31/19 19:06 Dose: 25 mg Dextrose/Sodium Chloride (Dextrose 5%/0.45% Ns 1000 Ml) 1,000 mls @ 60 mls/hr IV .[id number] [facility] Last Admin: 02/01/19 05:27 Dose: 60 mls/hr Ipratropium [place] (Atrovent) 0.5 mg IH TIDRESP [facility] Last Admin: 02/01/19 07:38 Dose: 0.5 mg Mirtazapine (Remeron) 45 mg PO HS [facility] Last Admin: 01/31/19 21:12 Dose: 45 mg Non-Formulary Medication (Umeclidinium [place] [Incruse Ellipta]) 1 puff INH DAILY [facility] Last Admin: 01/31/19 12:31 Dose: Not Given Oxycodone/Acetaminophen (Percocet 5/325 Mg Tab) 1 tab PO Q6H PRN PRN Reason: Pain, moderate (4-7) Stop: 02/02/19 17:05 Last Admin: 02/01/19 13:17 Dose: 1 tab Pantoprazole Sodium (Protonix Ec Tab) 40 mg PO 0600 [facility] Last Admin: 02/01/19 05:28 Dose: 40 mg Roflumilast (Daliresp) 500 mcg PO DAILY [facility] Last Admin: 01/31/19 12:04 Dose: 500 mcg Sucralfate (Carafate Oral Susp) 1 gm PO 0600,1600 [facility] Last Admin: 02/01/19 05:27 Dose: 1 gm - Labs Labs: 02/01/19 05:01 02/01/19 05:01 PT 17.2 SECONDS (9.4-12.5) H 01/30/19 20:02 INR 1.55 01/30/19 20:02 APTT 35.1 Seconds (26.9-38.3) 01/30/19 19:28 - Constitutional Appears: Non-toxic, No Acute Distress - ENT Exam ENT Exam: Mucous Membranes Dry - Respiratory Exam Respiratory Exam: absent: Accessory Muscle Use, Respiratory Distress - Cardiovascular Exam Cardiovascular Exam: REGULAR RHYTHM. absent: Tachycardia - GI/Abdominal Exam GI & Abdominal Exam: Soft. absent: Distended, Tenderness - Rectal Exam Rectal Exam: Hemorrhoids. absent: Bloody Stool Additional comments: no evidence of acute bleeding s/p colonoscopy - Neurological Exam Neurological Exam: Alert, Awake, Oriented x3 - Psychiatric Exam Psychiatric exam: Normal Affect, Normal Mood Assessment and Plan - Assessment and Plan (Free Text) Assessment: 73M with acutely bleeding external hemorrhoids; currently resolved Plan: up for transfer to telemetry will get another unit pRBC from ICU ok to adv diet as per GI team monitor HgB, transfuse PRN no immediate surgical intervention planned d/w Dr Hermes Edgar, PGY4
--- NOTE | 2019-02-01 22:57 | PN ---
DATE: 02/01/2019 This is [facility] visit in the Intensive Care Unit. For Dr. Lassiter. SUBJECTIVE: The patient is a 73-year-old male with known diagnosis of acute myelogenous leukemia with significant anemic indices with bright red rectal bleeding, now being transfused with workup in progress. Presently, he is in no acute distress in Intensive Care Unit. OBJECTIVE: GENERAL: The patient appears cachectic. Temporal muscle wasting noted. VITAL SIGNS: Temperature 99.2, pulse 101, respirations 22, blood pressure 140/93, and pulse ox 98%. HEENT: Unremarkable. NECK: Supple. HEART: Tachy rate, regular rhythm. LUNGS: Clear. ABDOMEN: Soft and nontender. EXTREMITIES: No edema. SKIN: Warm and dry. NEUROLOGIC: Awake and alert. LABORATORY DATA: The patient's labs were done. White blood cell count of 13.6, hemoglobin of 7.7, hematocrit of 24.8, and platelet count of 82,000 after transfusion of single donor platelets. The patient's metabolic panel was within normal range. ASSESSMENT: For this patient is that of acute gastrointestinal bleed, history of chronic myelogenous leukemia, thrombocytopenia, anemia as above, and chronic obstructive pulmonary disease. PLAN: For this patient after conversation with Dr. Lassiter is to continue present medical regimen with transfusion of packed red blood cells as indicated. We will monitor clinically and with labs. This is a complex patient with a comprehensive medically necessary and appropriate visit carried out in excess of 25 minutes with the patient's questions answered to his satisfaction. Anthony Soni MD
[2019-02-02] MEDS: Sucralfate 1 gm/10 ml Oral Susp UD PO SCH ×2 (05:21→17:04)
[2019-02-02] MEDS: Pantoprazole 40 mg EC Tab PO SCH (05:21)
[2019-02-02] MEDS: Dextrose 5%/0.45% NS 1,000 ML IV SCH (05:24)
[2019-02-02 06:54] LABS: BASO # 0.01 K/mm3 (0.0-2.0); BASO % 0.1 % (0.0-3.0); EOS # 0.1 (0.0-0.7); EOS % 0.8 % (1.5-5.0); HEMOGLOBIN 9.4 g/dL (14.0-18.0); LYMPH % 9.7 % (22.0-35.0); MEAN CELL VOLUME 84.8 fl (80.0-105.0); MEAN CORPUSCULAR HEMOGLOBIN 26.9 pg (25.0-35.0); MEAN CORPUSCULAR HGB CONC 31.8 g/dl (31.0-37.0); MEAN PLATELET VOLUME 11.1 fl (7.0-11.0); MONO # 2.8 (0.1-0.6); MONO % 26.6 % (1.0-6.0); RBC 3.49 10^6/uL (3.5-6.1); RED CELL DISTRIBUTION WIDTH 18.9 % (11.5-14.5); WHITE BLOOD COUNT 10.7 10^3/uL (4.5-11.0)
[2019-02-02 07:06] LABS: INR 1.38; PARTIAL THROMBOPLASTIN TIME 36.3 Seconds (26.9-38.3); PROTHROMBIN TIME 15.6 SECONDS (9.4-12.5)
[2019-02-02 07:17] LABS: ALB/GLOB RATIO 0.8 (1.1-1.8); ALBUMIN 2.9 g/dL (3.0-4.8); ALT/SGPT 8 U/L (7-56); AST/SGOT 22 U/L (17-59); BLOOD UREA NITROGEN 13 mg/dL (7-21); CALCIUM 8.4 mg/dL (8.4-10.5); GFR NON-AFRICAN AMERICAN > 60
[2019-02-02] MEDS: Ipratropium 0.02% Inhal Soln (0.5 mg/2.5 ml) UD IH SCH ×3 (07:49→20:52)
[2019-02-02] MEDS: Arformoterol 15 mcg/2 ml Inh Sol IH SCH ×2 (07:50→20:53)
[2019-02-02] MEDS: Budesonide 0.5 mg/2 ml Inhal Susp UD IH SCH ×2 (07:50→20:53)
--- NOTE | 2019-02-02 10:28 | PN ---
DATE: 02/02/2019 SUBJECTIVE: A 73-year-old white male with history of acute myelomonocytic leukemia, status post admission with severe anemia and severe thrombocytopenia. The patient is transferred from TICU to the floor. The patient had an endoscopy yesterday, also had a sigmoidoscopy, which showed only internal and external hemorrhoidal bleeding. The patient is more comfortable. He does reports some slight bleeding, but minimal today. He is still receiving respiratory therapy. He does have severe COPD. We will discussed the case with . , he has decided to start aggressive chemotherapy with Dr. Lassiter, for his acute myelomonocytic leukemia. He was started physical therapy and occupational therapy and follow the patient closely. His latest counts are hemoglobin 9.4, his platelet count is 65,000. His BUN and creatinine are stable. Sugar is 136. His albumin is 2.9. The patient is stable. We will start physical therapy and either early discharged or start of his chemotherapy. Martinez Jeff MD
--- NOTE | 2019-02-02 10:43 | PN ---
DATE: 02/02/2019 SUBJECTIVE: The patient had scant rectal bleeding last night as per his nurse. He had not had any further rectal bleeding today. He is comfortable. PHYSICAL EXAMINATION: VITAL SIGNS: Reveal temperature of 98.3, blood pressure 139/84, heart rate 95. HEENT: Reveal sclerae to be white. Conjunctivae pale. NECK: Supple. CHEST: Lungs clear. HEART: Exam reveals a regular rate and rhythm. GASTROINTESTINAL: Abdomen is soft, nontender. EXTREMITIES: Show no edema. LABORATORY DATA: Reveal white blood cell count 10.7, hemoglobin 9.4, platelet count 65,000. Chemistries reveal a blood sugar 136, albumin of 2.9. IMPRESSION: This is a 73-year-old male with acute myeloid leukemia with anemia, thrombocytopenia; admitted with rectal bleeding which was determined to be coming from large external hemorrhoids. I have discussed this case with Dr. Lassiter. RECOMMENDATIONS: 1. The patient is to start chemotherapy for his AML. 2. Continue Colace and Anusol-HC 25 mg suppository twice a day. Deven Renner MD
[2019-02-02] MEDS: Oxycodone/Acetaminophen 5/325 mg Tab PO PRN ×2 (12:40→19:27)
--- NOTE | 2019-02-02 13:23 | CP.PCM.PN ---
Subjective - Date & Time of Evaluation Date of Evaluation: 02/02/19 Time of Evaluation: 07:00 - Subjective Subjective: General Surgery Progress Note Pt seen and examined. External hemorrhoids continue to have bleeding off and on. Currently hemodynamically stable. Pt reports no abdominal pain, no nausea, no vomiting. HGB 9.4 from 7.7 after another unit PRBC overnight Objective - Vital Signs/Intake and Output Vital Signs (last 24 hours): Temp Pulse Resp BP Pulse Ox 98.3 F 107 H 20 139/84 94 L 02/02/19 08:38 02/02/19 10:00 02/02/19 08:38 02/02/19 08:38 02/02/19 08:38 Intake and Output: 02/02/19 02/02/19 06:59 18:59 Intake Total 440 Output Total 775 Balance -335 - Medications Medications: Current Medications Arformoterol Tartrate (Brovana) 15 mcg IH [id number] [facility] Last Admin: 02/02/19 07:50 Dose: 15 mcg Budesonide (Pulmicort Respules) 1 mg IH [id number] [facility] Last Admin: 02/02/19 07:50 Dose: 1 mg Clonazepam (Klonopin) 2 mg PO HS [facility]; Protocol Last Admin: 02/01/19 21:10 Dose: 2 mg Docusate Sodium (Colace) 100 mg PO BID [facility] Last Admin: 02/02/19 09:02 Dose: 100 mg Ferrous Sulfate (Feosol) 324 mg PO DAILY [facility] Last Admin: 02/02/19 09:02 Dose: 324 mg Gabapentin (Neurontin) 100 mg PO HS [facility]; Protocol Last Admin: 02/01/19 21:11 Dose: 100 mg Hydrocortisone (Anusol-Hc) 25 mg RC BID [facility] Last Admin: 02/01/19 17:22 Dose: 25 mg Dextrose/Sodium Chloride (Dextrose 5%/0.45% Ns 1000 Ml) 1,000 mls @ 60 mls/hr IV .[id number] [facility] Last Admin: 02/02/19 05:24 Dose: 60 mls/hr Ipratropium [place] (Atrovent) 0.5 mg IH TIDRESP [facility] Last Admin: 02/02/19 13:18 Dose: 0.5 mg Mirtazapine (Remeron) 45 mg PO HS [facility] Last Admin: 02/01/19 21:11 Dose: 45 mg Non-Formulary Medication (Umeclidinium [place] [Incruse Ellipta]) 1 puff INH DAILY [facility] Last Admin: 01/31/19 12:31 Dose: Not Given Oxycodone/Acetaminophen (Percocet 5/325 Mg Tab) 1 tab PO Q6H PRN PRN Reason: Pain, moderate (4-7) Stop: 02/02/19 17:05 Last Admin: 02/02/19 12:40 Dose: 1 tab Pantoprazole Sodium (Protonix Ec Tab) 40 mg PO 0600 [facility] Last Admin: 02/02/19 05:21 Dose: 40 mg Roflumilast (Daliresp) 500 mcg PO DAILY [facility] Last Admin: 02/02/19 09:03 Dose: 500 mcg Sucralfate (Carafate Oral Susp) 1 gm PO 0600,1600 [facility] Last Admin: 02/02/19 05:21 Dose: 1 gm - Labs Labs: 02/02/19 06:40 02/02/19 06:40 PT 15.6 SECONDS (9.4-12.5) H 02/02/19 06:40 INR 1.38 02/02/19 06:40 APTT 36.3 Seconds (26.9-38.3) 02/02/19 06:40 - Constitutional Appears: Non-toxic, No Acute Distress - Head Exam Head Exam: ATRAUMATIC, NORMOCEPHALIC - Eye Exam Eye Exam: EOMI. absent: Scleral icterus - ENT Exam ENT Exam: Mucous Membranes Moist - Respiratory Exam Respiratory Exam: NORMAL BREATHING PATTERN. absent: Respiratory Distress - Cardiovascular Exam Cardiovascular Exam: RRR - GI/Abdominal Exam GI & Abdominal Exam: Soft. absent: Distended, Firm, Guarding, Rigid, Tenderness - Neurological Exam Neurological Exam: Alert, Awake, Oriented x3 - Skin Skin Exam: Dry, Warm Assessment and Plan - Assessment and Plan (Free Text) Assessment: 73M with bleeding external hemorrhoids Plan: Ok to adv diet as per GI team Monitor HgB, transfuse PRN No immediate surgical intervention planned as pt continues to be stable. D/W Dr Hermes Davis PGY4
[2019-02-02] MEDS: Non Formulary Medication (Umeclidinium Bromide [Incruse Ellipta] 1 PUFF) INH SCH (13:43)
--- NOTE | 2019-02-03 00:19 | PN ---
DATE: 02/02/2019 This is [facility] visit on the medical floor. For Dr. Lassiter. SUBJECTIVE: The patient is a 73-year-old male, admitted for significant rectal bleeding with an admission hemoglobin which dropped to 7.5 for which the patient was then transfused a total of 3 units of packed red blood cells and two units of free single-donor platelets with good effect. At present, the patient reports occasional rectal bleeding which persisted which surgical team including Dr. Mirza is following with Dr. Renner, gastrointestinal underwriting consultant, continuing recommendations as listed for his hemorrhoids. At present, Dr. Lassiter recommends holding off on treatment of his myelogenous leukemia with the patient to recuperate whether at home or on subacute rehab/transitional care with resumption of treatment as an outpatient for chemotherapy at that time after the patient recovers his strength and has no further rectal bleeding. The patient is in no acute distress at this time except for his discomfort as described above. He also complains of left leg discomfort. However, he has not been out of bed and analgesics help his pain minimally with further workup as indicated. PHYSICAL EXAMINATION: VITAL SIGNS: Temperature 97.7, pulse 98, respirations 20, blood pressure 127/85, and pulse oximetry 97%. HEENT: Unremarkable. NECK: Supple. HEART: Regular rate. LUNGS: Clear. ABDOMEN: Soft, nontender. EXTREMITIES: No edema. SKIN: Warm and dry. NEUROLOGIC: Awake and alert. LABORATORY DATA: The patient's labs were done. White blood cell count of 10.7, hemoglobin of 9.4 after packed cells were transfused recently with previous hemoglobin of 7.7 yesterday. We will check this again in the morning. Hematocrit 29.6 with a platelet count of 65,000 today, increased from 44,000 three days prior. His INR today is 1.38 with a PT of 15.6, PTT of 36.3. His metabolic panel was within normal range. Albumin of 2.9, procalcitonin done earlier was 0.14. ASSESSMENT: The assessment for this patient is that of acute gastrointestinal bleed/bleeding hemorrhoids with significant anemic indices status post transfusion of three units of packed cells with thrombocytopenia secondary to his myelogenous leukemia, history of chronic obstructive pulmonary disease with left lower extremity discomfort. PLAN: The plan for this patient after conversation with Dr. Lassiter is to continue his present medical regimen. We will monitor clinically, check labs in the morning and correct his abnormalities as indicated with transfusions of packed cells versus platelets should be indicated. We will also recommend for the patient to be out of bed to the chair with physiotherapy evaluation for strengthening with further followup of his spotting of blood rectally with eventual discharge home versus subacute rehab/transitional care with eventual outpatient chemotherapy once the patient is improved. To this end, we will order for the patient to be out of bed to a chair with a one-third inflated donut pad to sit on for relief of his hemorrhoids along with physiotherapy evaluation and observation until eventual release from the hospital. This is a complex patient with a comprehensive medically necessary and appropriate visit carried out in excess of 45 minutes with the patient's questions answered to his satisfaction. Anthony Soni MD
[2019-02-03] MEDS: Oxycodone/Acetaminophen 5/325 mg Tab PO PRN ×2 (01:35→08:31)
[2019-02-03 05:01] LABS: EOS # 0.2 (0.0-0.7); EOS % 1.6 % (1.5-5.0); HEMOGLOBIN 8.3 g/dL (14.0-18.0); LYMPH # 1.8 (1.2-3.4); LYMPH % 12.2 % (22.0-35.0); MEAN CELL VOLUME 84.7 fl (80.0-105.0); MEAN CORPUSCULAR HEMOGLOBIN 26.4 pg (25.0-35.0); MEAN CORPUSCULAR HGB CONC 31.2 g/dl (31.0-37.0); MEAN PLATELET VOLUME 10.4 fl (7.0-11.0); MONO # 6.5 (0.1-0.6); MONO % 44.9 % (1.0-6.0); PLATELET COUNT 51 10^3/uL (120.0-450.0); RBC 3.14 10^6/uL (3.5-6.1); RED CELL DISTRIBUTION WIDTH 19.1 % (11.5-14.5); WHITE BLOOD COUNT 14.4 10^3/uL (4.5-11.0)
[2019-02-03] MEDS ORDERED: Morphine 2 mg/ml ISec IVP STA (05:07)
[2019-02-03 05:11] LABS: INR 1.39; PROTHROMBIN TIME 15.7 SECONDS (9.4-12.5)
[2019-02-03] MEDS: Sucralfate 1 gm/10 ml Oral Susp UD PO SCH (05:49)
[2019-02-03] MEDS: Pantoprazole 40 mg EC Tab PO SCH (05:49)
[2019-02-03 06:13] LABS: ALB/GLOB RATIO 0.8 (1.1-1.8); ALBUMIN 2.7 g/dL (3.0-4.8); ALT/SGPT 21 U/L (7-56); AST/SGOT 27 U/L (17-59); BLOOD UREA NITROGEN 15 mg/dL (7-21); GFR NON-AFRICAN AMERICAN > 60
[2019-02-03 06:16] LABS: ATYPICAL LYMPHOCYTE 1 % (0.0-0.0); BAND 8 % (0-2); LYMPHOCYTE 20 % (22.0-35.0); NEUTROPHIL 81 % (50.0-70.0)
[2019-02-03 06:17] LABS: ANISOCYTOSIS 1+; HYPOCHROMIA SLIGHT; MONOCYTE 38 % (1.0-6.0); MYELOCYTE 2 %; NUCLEATED RED BLOOD CELL 1 %; PLATELET ESTIMATE LOW (NORMAL)
[2019-02-03] MEDS: Budesonide 0.5 mg/2 ml Inhal Susp UD IH SCH (07:36)
[2019-02-03] MEDS: Ipratropium 0.02% Inhal Soln (0.5 mg/2.5 ml) UD IH SCH ×2 (07:36→13:23)
[2019-02-03] MEDS: Arformoterol 15 mcg/2 ml Inh Sol IH SCH (07:36)
[2019-02-03 08:17] VITALS: O2SAT 96
--- NOTE | 2019-02-03 09:44 | PN ---
DATE: 02/03/2019 SUBJECTIVE: The patient is lying in bed. He had scant rectal bleeding from hemorrhoids last night. He denies any abdominal pain. OBJECTIVE: VITAL SIGNS: Reveal temperature of 97.7, blood pressure 127/85, heart rate of 99. HEENT: Reveal sclerae to be white. Conjunctivae pale. NECK: Supple. CHEST: Lungs are clear. HEART: Reveals regular rate and rhythm. ABDOMEN: Soft and nontender. No mass. EXTREMITIES: Show no edema. LABORATORY DATA: Reveal white blood cell count 14.4, hemoglobin 8.3, platelet count down to 51,000. Chemistries reveal blood sugar of 113. IMPRESSION: A 73-year-old male with recently diagnosed acute myeloid leukemia with anemia, thrombocytopenia and rectal bleeding secondary to large hemorrhoids. His bleeding has improved with conservative medical treatment including Anusol-HC 25 mg suppository and stool softeners. RECOMMENDATIONS: 1. Continue current treatment. 2. Awaiting hematology decision on when to start chemotherapy for his AML. Deven Renner MD cc: MD Patrick (Delete if not dictated.)
--- NOTE | 2019-02-03 10:15 | PN ---
DATE: 02/03/2019 SUBJECTIVE: A 73-year-old white male with a history of acute myelomonocytic leukemia, hemorrhoidal bleeding, history of thrombocytopenia, history of anemia . The patient is stable this morning. He has had small amounts of rectal bleeding from his hemorrhoids. He is status post sigmoidoscopy and colonoscopy and also an endoscopy. He was transfused blood and platelets. The patient will see Dr. Lassiter as an outpatient next week. At this point, he is stable. We will attempt to discharge him home. We will follow as an outpatient. He is in no distress. PHYSICAL EXAMINATION GENERAL: He is awake, alert, and oriented x3. VITAL SIGNS: Stable. ASSESSMENT AND PLAN: He has expressed desire to be at home. He will return excessive bleeding or weakness. He does have chronic obstructive pulmonary disease. He has home nebulizer and medications as prescribed. The patient will follow as an outpatient. Martinez Jeff MD
[2019-02-03] MEDS: Non Formulary Medication (Umeclidinium Bromide [Incruse Ellipta] 1 PUFF) INH SCH (10:31)
[2019-02-03 11:15] VITALS: RESP 18
[2019-02-03 11:31] VITALS: PULSE 97
[2019-02-03 12:13] VITALS: BP 121/75; TEMP 98.1
--- NOTE | 2019-02-03 14:43 | PCM.PPROG ---
History of Present Illness - History of Present Illness History of Present Illness: Weakness, no other complaints Review of Systems - Review of Systems All systems: reviewed and no additional remarkable complaints except Physical Exam - Constitutional Appears: No Acute Distress, Chronically Ill - Head Exam Head Exam: NORMOCEPHALIC - Eye Exam Eye Exam: Normal appearance, PERRL - ENT Exam ENT Exam: Mucous Membranes Moist - Respiratory Exam Respiratory Exam: Clear to Auscultation Bilateral, NORMAL BREATHING PATTERN - Cardiovascular Exam Cardiovascular Exam: REGULAR RHYTHM, +S1, +S2 - GI/Abdominal Exam GI & Abdominal Exam: Normal Bowel Sounds, Soft - Extremities Exam Extremities exam: Positive for: pedal pulses present - Neurological Exam Neurological exam: Oriented x3 - Skin Skin Exam: Dry, Pallor Palliative Care Assessment - Pain Scale Pain Score: 0 Pain Scale Used: Numeric - Taurus Scale Sensory Perception: Slightly Limited Moisture: Occasionally Moist Activity: Walks Occasionally Mobility: Slightly Impaired Nutrition: Adequate Friction & Shear: Potential Problem Total Score - Skin Risk Assessment: 17 - Psychosocial Distress Patient screened for psychosocial distress: Yes Outcome: Referred to social sciences chair - Goals Treatment Goal(s): Alleviate symptoms, Improve ADLs, Improve quality of life End of life care discussed: Yes - Plan Interdisciplinary involved: before and after school daycare worker Assessment & Plan - Assessment and Plan (Free Text) Assessment: This is a 73 year old male with history of AML, COPD, anemia who is admitted with GI bleed, anemia,thrombocytopenia,hemorrhoids. The patient was seen in bed, he states he is weak,denies other complaints Revisited goals of care and advance care planning discussion. The patient states he intends to pursue treatment once he is discharged from hospital. Resuscitation conversation ensued. The patient stated that he knows he should think about the things but not really up to it today. He also stated that he would like his sister to be present Acknowledged his concerns. Will discuss at another times Time spent with patient in goals of care and advance care planning, 20 minutes Plan: Goals of care and advance car planning GI recs reviewed, No further rectal bleeding, hemorrhoids Anemia; stable, monitor CBC AML: To follow up with Dr Lassiter as an out patient
--- NOTE | 2019-02-03 15:01 | US ---
PROCEDURE: Left lower extremity venous US HISTORY: Leg pain and swelling. Evaluate for DVT. PHYSICIAN(S): Raf Anguiano MD. TECHNIQUE: Duplex sonography and color-flow Doppler with graded compression were used to evaluate the deep venous system of the left lower extremity. FINDINGS: The visualized deep venous system of the left lower extremity is sonographically normal and compressible. Normal wave forms and augmentation are seen. There is no sonographic evidence for deep venous thrombosis in the visualized segments of the left lower extremity. There is a heterogeneous 4.1 x 4.8 cm area in the distal left thigh. The differential includes hematoma. IMPRESSION: 1. No sonographic evidence for deep venous thrombosis in the visualized segments of the left lower extremity.
--- NOTE | 2019-02-03 18:12 | PN ---
DATE: 02/03/2019 This is [facility] visit on the medical floor. For Dr. Lassiter. 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 He continues to have oozing from his hemorrhoidal changes with his hemoglobin now having dropped after transfusion from 9.4 to 8.3 today. Platelet count is at 51,000 with no overactive bleeding, but the patient continued to have left lower thigh discomfort for which Doppler ultrasound was recommended and it is to be done. With this, the patient is anxious to be discharge home with his sister at the bedside, with recommendations for followup with Dr. Lassiter as an outpatient early next week should he be discharged home. His metabolic panel from today was within normal range, again with his hemoglobin having dropped from 9.4 to 8.3. His INR is 1.39. PHYSICAL EXAMINATION: VITAL SIGNS: Temperature 98.1, pulse 97, respirations 18, blood pressure 121/75, and pulse ox 96%. HEENT: Unremarkable. No petechiae on inspection of the palate. NECK: Supple. HEART: Regular rate. LUNGS: Clear. ABDOMEN: Soft. EXTREMITIES: Left lower thigh induration compared to his right lower thigh with tenderness palpation. SKIN: Otherwise warm and dry. NEUROLOGIC: Awake and alert with the patient appearing cachectic. 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 PLAN: For this patient after conversation with Dr. Lassiter is to check a Doppler ultrasound to be done stat with consideration for an additional day of monitoring the patient clinically as he continues to have rectal spotting with drop in hemoglobin with the patient appearing weak along with left lower extremity being indurated compared to his right lower extremity. The plan for this patient is to continue as per his primary doctor with considerations for an additional hospital day for observation with repeat labs. However, the patient is adamant and that he wants to go home with recommendations to follow up immediately to the emergency room should the bleeding recur or his discomfort worsen. 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 Lassiter's recommendation as an outpatient. Otherwise, to come to emergency room 24 hours day or night should his condition deteriorate, this was also explained to the sister at the bedside and also to nursing staff present in the room. This is a complex patient with a comprehensive medically necessary and appropriate visit carried out in excess of 45 minutes with the patient and his sister's questions answered to their satisfaction. Anthony Soni MD
== END 2019-02-03 15:03 | disposition home health service (06) | DRG 394 ==
LOC: ED 11:09 → ERH 13:24 → 3RSO 16:07 → CCU 22:14 → 3RSO 02-01 20:02
PROVIDERS: ADMIT Internal Medicine; ATTEND Internal Medicine
PROC: 30233N1 Transfusion of Nonautologous Red Blood Cells into Peripheral Vein, Percutaneous Approach (ICD-10-PCS; principal; 2019-01-30)
PROC: 30233R1 Transfusion of Nonautologous Platelets into Peripheral Vein, Percutaneous Approach (ICD-10-PCS; 2019-01-31)
PROC: 3E0F7GC Introduction of Other Therapeutic Substance into Respiratory Tract, Via Natural or Artificial Opening (ICD-10-PCS; 2019-01-31)
PROC: 0DJD8ZZ Inspection of Lower Intestinal Tract, Via Natural or Artificial Opening Endoscopic (ICD-10-PCS; 2019-02-01)
DX: K64.4 Residual hemorrhoidal skin tags (principal); C92.50 Acute myelomonocytic leukemia, not having achieved remission; R64 Cachexia; Z68.1 Body mass index [BMI] 19.9 or less, adult; R65.10 Systemic inflammatory response syndrome (SIRS) of non-infectious origin without acute organ dysfunction; D62 Acute posthemorrhagic anemia; K64.8 Other hemorrhoids; J44.9 Chronic obstructive pulmonary disease, unspecified; D69.6 Thrombocytopenia, unspecified; F41.9 Anxiety disorder, unspecified; K57.30 Diverticulosis of large intestine without perforation or abscess without bleeding; K59.00 Constipation, unspecified; Z87.891 Personal history of nicotine dependence

== ENCOUNTER 2019-02-08 17:15 | Outpatient (CLI) | payer MEDICARE | END 2019-02-08 17:16 | disposition home or self-care (01) | LOC: OPLAB 17:15 ==

== ENCOUNTER 2019-02-10 08:23 | Outpatient (CLI) | payer MEDICARE | END 2019-02-10 08:24 | disposition home or self-care (01) | LOC: ONC 08:23 ==

== ENCOUNTER 2019-02-13 16:10 | Outpatient (CLI) | payer MEDICARE, MEDICAID | END 2019-02-13 16:11 | disposition home or self-care (01) | LOC: RAD 16:10 ==

== ENCOUNTER 2019-02-22 18:57 | Outpatient (CLI) | payer MEDICARE | END 2019-02-22 18:58 | disposition home or self-care (01) | LOC: LAB 18:57 ==